=== PATIENT | female | born 1940 | race Asian ===

== ENCOUNTER 2020-08-10 19:00 | Emergency (ER) | payer MEDICARE, OTHER ==
--- NOTE | 2020-08-10 19:54 | EDM.PDOC ---
ED HPI GENERAL MEDICAL PROBLEM - General Chief Complaint: General Stated Complaint: FALL, SHOULDER PAIN Time Seen by Provider: 08/10/20 19:35 Source of Information: Reports: Patient, Family, Other (daughter POPlacido) - History of Present Illness INITIAL COMMENTS - FREE TEXT/NARRATIVE: Rise to emergency room with daughter for a fall which occurred 1 hour prior to arrival. Patient was in the kitchen lost her balance and fell directly on her left shoulder first and then hit her left side of the head. No loss conscious, family were there in the nearby room. Patient was able to get up after however she has moderate severe left shoulder pain. Patient does suffer from advanced rheumatoid arthritis as well. Patient has been acting appropriately since. Her main reason she is here to have her shoulder evaluated. Patient does have history of fall approximately 1 month ago in which she fell back onto her butt as she was getting up and felt her legs give out due to weakness and RA and landed right directly on her back. No evaluation was completed. Patient does also have some lower lumbar spine tenderness and pain. She does have history of lumbar fracture and a "slipped disc", from which the daughter states. Patient does not take any anticoagulants. She rates her side of her head 2 out of 10 and her shoulder 8 out of 10. In addition the patient does have some upper respiratory infection symptoms for the past week , congestion runny nose. Denies loss taste or smell. No worsening shortness of breath or any increase of her oxygen demands. Family at home, her grandsons had fevers last week which have resolved. No one was tested for COVID-19. She has not been out of the house since December however family do come and go and daughter works in school system as long as the children do go to school. Left Shoulder Pain Score (Numeric/FACES): 8 - Related Data Allergies Allergy/AdvReac Type Severity Reaction Status Date / Time abatacept [From Orencia] Allergy Itching Verified 08/10/20 19:34 aspirin Allergy Hives Verified 08/10/20 19:34 infliximab [From Remicade] Allergy Hypertensio Verified 08/10/20 19:34 n lactose Allergy Nausea and Verified 08/10/20 19:34 Vomiting lisinopril Allergy Shortness Verified 08/10/20 19:34 of Breath Home Meds: Home Meds Omeprazole 20 mg PO 1800 01/03/14 [History] Benzonatate [Tessalon Perle] 200 mg PO 0830,1200,1800 PRN 12/19/16 [History] DULoxetine [Cymbalta] 60 mg PO 209912/19/16 [History] Hydroxychloroquine [Plaquenil] 200 mg PO 209912/19/16 [History] Omeprazole 40 mg PO 0812/19/16 [History] busPIRone [Buspar] 5 mg PO 0830,179912/19/16 [History] predniSONE 5 - 10 mg PO 119912/19/16 [History] Acetaminophen [Acetaminophen ER] 650 mg PO TID PRN 10/31/17 [History] Cholecalciferol (Vitamin D3) [Vitamin D3] 2,000 unit PO 119910/31/17 [History] azaTHIOprine [Imuran] 50 mg PO 0830,179901/23/18 [History] Albuterol Sulfate 1 ampule NEB BID PRN 03/20/18 [History] Fexofenadine [Krystal] 180 [place] 82903/20/18 [History] Magnesium Oxide [Magnesium] 500 mg PO 119903/20/18 [History] Codeine/guaiFENesin [Robitussin AC] 5 ml PO ASDIRECTED PRN 05/14/18 [History] Formoterol Fumarate [Perforomist] 1 each NEB 0800,199905/14/18 [History] Budesonide [Pulmicort] 0.5 mg INH 0830,202905/15/18 [History] Cyanocobalamin (Vitamin B-12) [Vitamin B-12] 1,000 mcg PO DAILY@119905/15/18 [History] Gabapentin [Neurontin] 800 mg PO TID@1200,1800,209905/15/18 [History] Hydrocodone/Acetaminophen [Hydrocodone-Acetamin 5-325 mg] 1 tab PO BID PRN 05/15/18 [History] metFORMIN HCl [Metformin ER Osmotic] 500 mg PO 0830,1200,1800 05/15/18 [History] tiZANidine [Zanaflex] 2 mg PO 209905/15/18 [History] Triamcinolone Acetonide [Triamcinolone Acetonide 0.1% Crm] 1 applic TOP BID PRN 09/05/18 [History] Fenofibrate 54 mg PO 209912/04/18 [History] Insulin Glarg,Human.Rec.Analog [Lantus] 10 unit SUBCUT 209912/04/18 [History] Tocilizumab [Actemra] 250 mg IV Q28D 01/01/19 [History] Nystatin 500,000 unit PO QID 7 Days #140 oral.susp 08/10/20 [Rx] Past Medical History HEENT History: Reports: None, Cataract, Hard of Hearing, Impaired Vision Cardiovascular History: Reports: High Cholesterol, Hypertension Respiratory History: Reports: Asthma Other Respiratory History: idiopathic pulmonary fibrosis - uncomplicated severe persistant asthma Gastrointestinal History: Reports: GERD, Hiatal Hernia Other Gastrointestinal History: peptic ulcers 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: Musculoskeletal History: Reports: Osteoarthritis, Osteoporosis, RA Psychiatric History: Reports: Depression Endocrine/Metabolic History: Reports: Diabetes, Type II, Vitamin D Deficiency Hematologic History: Reports: Anemia, B12 Deficiency Immunologic History: Reports: Immunosuppression, Other (See Below) Other Immunologic History: 05-29-18 First dose of Orencia; d/c'd Cimzia therapy Dermatologic History: Reports: Other (See Below) Other Dermatologic History: Vasculitis - Past Surgical History Other HEENT Surgeries/Procedures: ear surgery Cardiovascular Surgical History: Reports: None Respiratory Surgical History: Reports: None GI Surgical History: Reports: Cholecystectomy, Hernia, Inguinal Musculoskeletal Surgical History: Reports: None Dermatological Surgical History: Reports: Skin Biopsy Social & Family History - Family History Family Medical History: Noncontributory - Caffeine Use Caffeine Use: Reports: Coffee ED ROS GENERAL - Review of Systems Review Of Systems: Comprehensive ROS is negative, except as noted in HPI. Constitutional: Reports: Weakness. Denies: Fever, Chills Respiratory: Reports: Cough (Patient has chronic cough due to her pulmonary fibrosis), Other (Denies increasing shortness of breath from baseline) Cardiovascular: Denies: Chest Pain Musculoskeletal: Reports: Shoulder Pain (left ), Back Pain Neurological: Reports: No Symptoms. Denies: Confusion, Headache, Numbness, Paresthesia, Syncope ED EXAM, GENERAL - Physical Exam Exam: See Below Exam Limited By: Language Barrier (mild language barrier, daughter (POA) at bedside as well.) General Appearance: Alert, WD/WN, No Apparent Distress Eye Exam: Bilateral Eye: EOMI, PERRL Ears: Normal External Exam, Normal TMs, Other Nose: Normal Inspection, Normal Mucosa, No Blood Throat/Mouth: Normal Lips, Other (White plaque noted to the oropharynx consistent with oral Jennifer) Head: Atraumatic, Normocephalic, Other (Negative for lazo sign, negative raccoon eyes). No: Facial Swelling, Facial Tenderness Neck: Normal Inspection, Supple, Non-Tender, Full Range of Motion. No: Tender Lateral, Tender Midline Respiratory/Chest: Crackles, Rhonchi Cardiovascular: Normal Peripheral Pulses, Regular Rate, Rhythm GI/Abdominal: Soft, Non-Tender Back Exam: Normal Inspection, Vertebral Tenderness, Other (No signs of bruising, no crepitus or bony step-offs. moderater L4-L5 tenderness on palpation). No: Muscle Spasm Extremities: Normal Inspection, Normal Capillary Refill, Other (Left shoulder pain worse when she externally rotates and abducts it. 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 No: Leg Pain Neurological: Alert, Oriented, CN II-XII Intact, Normal Cognition, No Motor/Sensory Deficits Psychiatric: Normal Affect, Normal Mood Skin Exam: Warm, Dry, Intact. No: Ecchymosis, Wound/Incision Course - Vital Signs Last Recorded V/S: Last Vital Signs Temp 96.7 F L 08/10/20 20:15 Pulse 108 H 08/10/20 20:15 Resp 23 H 08/10/20 20:15 BP 147/91 H 08/10/20 20:15 Pulse Ox 100 08/10/20 20:15 - Orders/Labs/Meds Meds: Medications Discontinued Medications Generic Name Dose Route Start Last Admin Trade Name Rainer PRN Reason Stop Dose Admin Hydrocodone Bitart/Acetaminophen 1 tab 08/10/20 20:29 08/10/20 20:30 Maunie 325-5 Mg PO 08/10/20 20:30 Not Given ONETIME ONE Hydrocodone Bitart/Acetaminophen 1 tab 08/10/20 20:29 08/10/20 20:31 Maunie 325-5 Mg PO 08/10/20 20:30 1 tab ONETIME ONE Administration Hydrocodone Bitart/Acetaminophen Confirm 08/10/20 20:27 08/10/20 20:30 Maunie 325-5 Mg Administered 08/10/20 20:28 Not Given Dose 1 tab .ROUTE .STK-MED ONE - Re-Assessments/Exams Free Text/Narrative Re-Assessment/Exam: 08/10/20 19:54 X-ray shoulder lumbar completed. Pain control discussed ice the shoulder. Follow-up with PCP later this week for recheck. Patient not a candidate at this time for a simple arm sling ,would increased risk for fall along with causing increased risk for adhesive capsulitis. She does have history of underlying L4 compression fracture , which actually does show that and she is also had a recent CT scan back in March 2020. There is degenerative changes noted as we expect with the underlying health conditions. Discussed physical therapy as well, in which a follow-up with her PCP in the clinic may discuss options for this to occur. Patient does have pain medication at home which is scheduled taking hydrocodone and plain Tylenol throughout the day to control her chronic pain. Patient does live at home with her daughter. Discharge return precaution discussed with daughter. Yes the patient did hit her head after she fell landed on her shoulder first. She does have 2 out of 10 pain there is no signs of trauma. No loss conscious no anticoagulants. She alert orientated x3 cranial nerves intact no focal neurological deficits. there is also chance for delayed intracranial hemorrhage, patient does live at home with her daughter at close observation , if symptoms change at all, worsen any, or develops any decline neurologically, patient will be brought back to emergency room immediately for repeat evaluation and CT scan of the head. Daughter and patient both comfortable with plan of care. 08/10/20 19:59 Full personal protective equipment was used throughout visit. Patient does have history immunosuppression potential COVID-19 symptoms. patient was tested for COVID-19 via state test. We will contact the patient with results. She will continue quarantine until results return. 08/10/20 20:09 In addition the patient has some white plaque to the oropharynx, signs of early oral candidiasis, she does do nebs BID, we will treat her with nystatin susp swish gargle and swallow, after nebs, she swishes and spits with water, then she will do the nystatin susp. Departure - Departure Time of Disposition: 20:36 Disposition: Home, Self-Care 01 Condition: Good Clinical Impression: Suspected COVID-19 virus infection Fall Qualifiers: Encounter type: initial encounter Qualified Code(s): W19.XXXA - Unspecified fall, initial encounter Contusion of shoulder, left Qualifiers: Encounter type: initial encounter Qualified Code(s): S40.012A - Contusion of left shoulder, initial encounter Lumbar compression fracture Qualifiers: Encounter type: subsequent encounter Lumbar vertebra fracture level: L4 Fracture healing: with delayed healing Qualified Code(s): S32.040G - Wedge compression fracture of fourth lumbar vertebra, subsequent encounter for fracture with delayed healing - Discharge Information *PRESCRIPTION DRUG MONITORING PROGRAM REVIEWED*: No *COPY OF PRESCRIPTION DRUG MONITORING REPORT IN PATIENT LETTY: No Prescriptions: Nystatin 500,000 unit PO QID 7 Days #140 oral.susp Instructions: Acute Back Pain, Adult, Infection Prevention in the Home Referrals: Juany Roman MD [Primary Care Provider] - Forms: ED Department Discharge Sepsis Event Note (ED) - Evaluation Sepsis Screening Result: No Definite Risk - Focused Exam Vital Signs: Vital Signs Temp Pulse Resp BP Pulse Ox 08/10/20 20:15 96.7 F L 108 H 23 H 147/91 H 100 08/10/20 19:14 96.9 F 116 H 18 141/82 H 96
[2020-08-10 20:16] VITALS: BP 147/91; PULSE 108
[2020-08-10] MEDS ORDERED: Acetaminophen/HYDROcodone 325-5 MG Tab ONE (20:27)
[2020-08-10] MEDS ORDERED: Acetaminophen/HYDROcodone 325-5 MG Tab PO ONE ×2 (20:29)
--- NOTE | 2020-08-10 20:35 | CR ---
[id number] RAD/RAD Shoulder Left 2V Min EXAM: 3 VIEWS LEFT SHOULDER. INDICATION: FALL, LEFT SHOULDER INJURY/PAIN COMPARISON: None. DISCUSSION: No fracture, dislocation or other acute osseous abnormality. Mild degenerative changes of the left common clavicular joint as well as the left glenohumeral joint. Patchy opacifications overlying the visualized left lung. IMPRESSION: 1. No acute osseous abnormalities. Waqas Romero DO 08/10/202032 Thank you for allowing us to participate in the care of your patient.
--- NOTE | 2020-08-10 20:36 | CR ---
[id number] RAD/RAD Lumbar Spine 2-3V EXAM: AP AND LATERAL LUMBAR SPINE. INDICATION: Fall, low back pain. COMPARISON: No previous similar exam is available for comparison. FINDINGS: Age-indeterminate compression deformities of L4-L5. There is approximately 80-90% loss of body height at L4 and 20% loss of body height at L5. No significant retropulsion. Grade 1 anterolisthesis of L5 over S1. Multilevel degenerative changes of the lumbar spine including loss of disc space height, endplate osteophytosis and facet arthropathy. The pedicles are intact. Vascular calcifications. IMPRESSION: AGE-INDETERMINATE COMPRESSION DEFORMITIES OF L4 AND L5 DESCRIBED ABOVE. Waqas Romero DO 08/10/208 Thank you for allowing us to participate in the care of your patient.
== END 2020-08-10 21:00 | disposition home or self-care (01) ==
LOC: KA.ED 19:00
DX: S32.049G Unspecified fracture of fourth lumbar vertebra, subsequent encounter for fracture with delayed healing (principal); S40.012A Contusion of left shoulder, initial encounter; E78.00 Pure hypercholesterolemia, unspecified; I10 Essential (primary) hypertension; J45.909 Unspecified asthma, uncomplicated; K21.9 Gastro-esophageal reflux disease without esophagitis; F32.9 Major depressive disorder, single episode, unspecified; E11.9 Type 2 diabetes mellitus without complications; Z88.8 Allergy status to other drugs, medicaments and biological substances; Z88.6 Allergy status to analgesic agent; Z91.011 Allergy to milk products; Z79.899 Other long term (current) drug therapy; Z79.4 Long term (current) use of insulin; Z20.828 Contact with and (suspected) exposure to other viral communicable diseases; W01.0XXA Fall on same level from slipping, tripping and stumbling without subsequent striking against object, initial encounter
CPT/HCPCS: 72100; 73030-LT; 99283-25; 99284; A9270-GY; U0002

== ENCOUNTER 2021-01-02 08:08 | Inpatient (IN) | payer MEDICARE, OTHER ==
--- NOTE | 2021-01-02 08:12 | EDM.PDOC ---
ED HPI GENERAL MEDICAL PROBLEM - General Chief Complaint: Neuro Symptoms/Deficits Stated Complaint: FALL Time Seen by Provider: 01/02/21 08:12 Source of Information: Reports: Patient, Family History Limitations: Reports: Altered Mental Status - History of Present Illness INITIAL COMMENTS - FREE TEXT/NARRATIVE: Mrs. Walker, 80-year-old female, presents by family members to the emergency department this morning for evaluation of increased weakness and confusion. Roughly 2330 hrs. yesterday, daughter January, heard a thump, secondary of Paek falling to the floor. There was no obvious injury and she was assisted back into bed. It was noted that yesterday she had been slightly worsened in her chronic confusion/weakness issues with more frequent headaches occurring lately. This morning, when typically getting her up for the day she was noted to be experiencing generalized weakness to all extremities as well as slightly worsened confusion from her baseline. It was also noted that during the night her oxygen had come off with desaturation occurring but returned back to her baseline once nasal cannula was replaced. It is noted she has chronic oxygen supplementation for pulmonary fibrosis and is also been on suppression therapy with Bactrim 3 times a week for the past year. There was no noted loss of consciousness nor injury. There is been no fever nor chills noted. Cough and mucus production has been stable. No abdominal nor urine issues. Chronic back pain does not seem to have worsened from her compression fracture diagnosis recently. Generalized weakness and disorientation/confusion slightly worsened. Onset Date: 01/01/21 Duration: Hour(s):, Getting Worse Location: Reports: Generalized Severity: Severe Improves with: Reports: None Treatments BEHAVIORAL HEALTH ASSOCIATE: Reports: Other (see below) (Home medications, treatments, and chronic oxygen supplementation) - Related Data Allergies Allergy/AdvReac Type Severity Reaction Status Date / Time abatacept [From Orencia] Allergy Itching Verified 01/02/21 08:36 aspirin Allergy Hives Verified 01/02/21 08:36 infliximab [From Remicade] Allergy Hypertensio Verified 01/02/21 08:36 n lactose Allergy Nausea and Verified 01/02/21 08:36 Vomiting lisinopril Allergy Shortness Verified 01/02/21 08:36 of Breath Home Meds: Home Meds Omeprazole 20 mg PO 1800 01/03/14 [History] Benzonatate [Tessalon Perle] 200 mg PO 0830,1200,1800 PRN 12/19/16 [History] DULoxetine [Cymbalta] 60 mg PO 209912/19/16 [History] Hydroxychloroquine [Plaquenil] 200 mg PO 209912/19/16 [History] busPIRone [Buspar] 5 mg PO 0830,179912/19/16 [History] predniSONE 5 - 10 mg PO 119912/19/16 [History] Acetaminophen [Acetaminophen ER] 650 mg PO TID PRN 10/31/17 [History] Cholecalciferol (Vitamin D3) [Vitamin D3] 2,000 unit PO 119910/31/17 [History] azaTHIOprine [Imuran] 50 mg PO 0830,179901/23/18 [History] Albuterol Sulfate 1 ampule NEB BID PRN 03/20/18 [History] Magnesium Oxide [Magnesium] 500 mg PO 119903/20/18 [History] Codeine/guaiFENesin [Robitussin AC] 5 ml PO ASDIRECTED PRN 05/14/18 [History] Budesonide [Pulmicort] 0.5 mg INH 829,202905/15/18 [History] Cyanocobalamin (Vitamin B-12) [Vitamin B-12] 1,000 mcg PO DAILY@119905/15/18 [History] metFORMIN HCl [Metformin ER Osmotic] 500 mg PO 0830,1200,179905/15/18 [History] Triamcinolone Acetonide [Triamcinolone Acetonide 0.1% Crm] 1 applic TOP BID PRN 09/05/18 [History] Cetirizine [ZyrTEC] 10 mg PO DAILY 01/02/21 [History] Cranberry Fruit [Cranberry] 900 mg PO 209901/02/21 [History] Fenofibrate Nanocrystallized [Fenofibrate] 145 mg PO 209901/02/21 [History] Gabapentin [Neurontin] 900 mg PO 1300,1700,209901/02/21 [History] Hydrocodone/Acetaminophen [Hydrocodone-Acetamin 10-325 mg] 1 tab PO Q4H PRN 01/02/21 [History] Insulin Detemir [Levemir Flextouch] 18 units SUBCUT 199901/02/21 [History] Sulfamethoxazole/Trimethoprim [Bactrim Ds Tablet] 1 tab PO ASDIRECTED 01/02/21 [History] Past Medical History HEENT History: Reports: None, Cataract, Hard of Hearing, Impaired Vision Cardiovascular History: Reports: High Cholesterol, Hypertension Respiratory History: Reports: Asthma Other Respiratory History: 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 Denies: CVA Psychiatric History: Reports: Depression Endocrine/Metabolic History: Reports: Diabetes, Type II, Vitamin D Deficiency Hematologic History: Reports: Anemia, B12 Deficiency Immunologic History: Reports: Immunosuppression, Other (See Below) Other Immunologic History: 05-29-18 First dose of Orencia; d/c'd Cimzia therapy Dermatologic History: Reports: Other (See Below) Other Dermatologic History: Vasculitis - Past Surgical History Other HEENT Surgeries/Procedures: ear surgery Cardiovascular Surgical History: Reports: None Respiratory Surgical History: Reports: None GI Surgical History: Reports: Cholecystectomy, Hernia, Inguinal Musculoskeletal Surgical History: Reports: None Dermatological Surgical History: Reports: Skin Biopsy - Past Imaging History Past Imaging History: Reports: Bone Scan, CAT Scan, MRI, Xray Social & Family History - Family History Family Medical History: No Pertinent Family History - Tobacco Use Tobacco Use Status *Q: Never Tobacco User - Caffeine Use Caffeine Use: Reports: Coffee Other Caffeine Use: 1 cup a day ED ROS GENERAL - Review of Systems Review Of Systems: Comprehensive ROS is negative, except as noted in HPI. ED EXAM, GENERAL - Physical Exam Exam: See Below Free Text/Narrative:: Alert, oriented to location and who the president is but is not aware of date. She speaks of mild generalized pain exhibiting no gross shortness of breath while on her oxygen. Pupils are mildly constricted but reactive with no icterus no injection noted. There is no facial asymmetry noted but she is slow to follow command. Neck is soft supple with no nuchal rigidity nor tenderness. I do not appreciate any carotid bruit to auscultation. Thorax is clear on inhalation with fine rhonchi, coarse exhalation with a very shortened inspiratory expiratory cycle. Cardiac is tachycardic I do not appreciate murmur. Abdomen is soft I do not appreciate any tenderness nor megaly. No edema to the extremities. Neuro exam somewhat limited secondary of historical factors and following commands. Dry appearing mucous membranes, Facial symmetry is noted with non- cooperative to opening of mouth for assessment of tongue and facial expression. When asked to raise her arm and point to her daughter she slowly brings the forearm up but rests at the elbow but does understand and points with index finger at her daughter. Left side is may be slightly less strength to the arm raise. Lever Miller strength is +1 but symmetrical. She is unable to hold her legs with gradual dropping to the table after 3 seconds. She is able to point her toes and dorsiflex symmetrically but slightly weakened. #1 Interpretation EKG Date: 01/02/21 Time: 08:36 Rhythm: NSR Rate (Beats/Min): 141 [employer]: Normal P-Wave: Present QRS: Normal ST-T: Depressed QT: Normal Comparison: Change From Previous EKG Course - Vital Signs Last Recorded V/S: Last Vital Signs Temp 98 F 01/02/21 08:45 Pulse 138 H 01/02/21 09:27 Resp 33 H 01/02/21 08:45 BP 105/89 01/02/21 09:27 Pulse Ox 99 01/02/21 08:45 - Orders/Labs/Meds Orders: Active Orders 24 hr Category Date Time Status Patient Status [ADT] Routine ADT 01/02/21 10:28 Ordered Peripheral IV Care [RC] . DIRECTED Care 01/02/21 08:23 Active CULTURE BLOOD [BC] Stat Lab 01/02/21 08:23 Ordered CULTURE BLOOD [BC] Stat Lab 01/02/21 08:23 Ordered Sodium Chloride 0.9% [Normal Saline] 1,000 ml Med 01/02/21 08:30 Active IV ASDIRECTED Sodium Chloride 0.9% [Saline Flush] Med 01/02/21 08:23 Active 10 ml FLUSH Q8HR PRN Blood Culture x2 Reflex Set [OM.PC] Stat Oth 01/02/21 08:23 Ordered Peripheral IV Insertion Adult [OM.PC] Routine Oth 01/02/21 08:23 Ordered Code Status [Resuscitation Status] Stat Resus Stat 01/02/21 10:30 Ordered EKG 12 Lead [EK] Urgent Ther 01/02/21 08:24 Ordered Medication Orders Sodium Chloride (Normal Saline) 1,000 mls @ 125 mls/hr IV ASDIRECTED TERESE Last Admin: 01/02/21 09:25 Dose: 125 mls/hr Documented by: GINA Sodium Chloride (Sodium Chloride 0.9% 10 Ml Syringe) 10 ml FLUSH Q8HR PRN PRN Reason: keep vein open Labs: Laboratory Tests 01/02/21 01/02/21 01/02/21 Range/Units 08:15 08:15 08:15 WBC Cancelled Corrected WBC Cancelled RBC Cancelled Hgb Cancelled Hct Cancelled MCV Cancelled MCH Cancelled MCHC Cancelled RDW Cancelled Plt Count Cancelled MPV Cancelled Immature Gran % (Auto) Cancelled Neut % (Auto) Cancelled Lymph % (Auto) Cancelled [place] % (Auto) Cancelled Eos % (Auto) Cancelled Baso % (Auto) Cancelled Neut # (Auto) Cancelled Lymph # (Auto) Cancelled [place] # (Auto) Cancelled Eos # (Auto) Cancelled Baso # (Auto) Cancelled Immature Gran # (Auto) Cancelled Add Manual Diff Cancelled Neutrophils % (Manual) Cancelled Band Neutrophils % Cancelled Lymphocytes % (Manual) Cancelled Atypical Lymphs % Cancelled Immat Monocytes % (Man) Cancelled Monocytes % (Manual) Cancelled Eosinophils % (Manual) Cancelled Basophils % (Manual) Cancelled Metamyelocytes % Cancelled Myelocytes % Cancelled Promyelocytes % Cancelled Blast Cells % Cancelled Plasma Cell % (Manual) Cancelled Immature Gran # Cancelled Absolute Neutrophils Cancelled Absolute Seg Neuts Cancelled Band Neutrophils # Cancelled Lymphocytes # (Manual) Cancelled Monocytes # (Manual) Cancelled Eosinophils # (Manual) Cancelled Basophils # (Manual) Cancelled Absolute Metamyelocyte Cancelled Absolute Myelocytes Cancelled Absolute Promyelocytes Cancelled Absolute Plasma Cells Cancelled Nucleated RBCs Cancelled Differential Comment Cancelled Pathologist Review Cancelled Bilobed Neuts Cancelled Hypersegmented Neuts Cancelled Variant Lymphocytes Cancelled Atypical Lymphocytes Cancelled Abnormal Lymphocytes Cancelled Plasmacytoid Lymphs Cancelled Reactive Lymphocytes Cancelled Vacuolated Monocytes Cancelled Absolute Blast Cells Cancelled Smudge Cells Cancelled Toxic Granulation Cancelled Dohle Bodies Cancelled Pelger-Huet Cells Cancelled Megakaryocytic Frags Cancelled Remy Rods Cancelled WBC Morphology Comment Cancelled Platelet Estimate Cancelled Hypogranular Platelets Cancelled Platelet Agranulation Cancelled Clumped Platelets Cancelled Giant Platelets Cancelled Platelet Satelliting Cancelled Bizarre Platelets Cancelled Plt Morphology Comment Cancelled Polychromasia Cancelled Hypochromasia Cancelled Poikilocytosis Cancelled Basophilic Stippling Cancelled Anisocytosis Cancelled Microcytosis Cancelled Macrocytosis Cancelled Spherocytes Cancelled Micro Spherocytes Cancelled Pappenheimer Bodies Cancelled Siderocytes Cancelled Sickle Cells Cancelled Target Cells Cancelled Tear Drop Cells Cancelled Ovalocytes Cancelled Stomatocytes Cancelled Helmet Cells Cancelled [place] Bodies Cancelled [place] Rings Cancelled Amber Cells Cancelled Elliptocytes Cancelled Acanthocytes (Spur) Cancelled Rouleaux Cancelled Hemoglobin C Crystals Cancelled Schistocytes Cancelled RBC Morph Comment Cancelled Smear Path Review Cancelled Billy Bodies Cancelled Sodium 139 (136-145) mmol/L Potassium 4.3 (3.5-5.1) mmol/L Chloride 96 L (98-107) mmol/L Carbon Dioxide 32.2 H (21.0-32.0) mmol/L Anion Gap 15.1 H (5-15) mmol/L BUN 15 (7-18) mg/dL Creatinine 0.43 L (0.51-1.17) mg/dL Est Cr Clr Drug Dosing 87.76 mL/min Estimated GFR (MDRD) > 60 mL/min Glucose 197 H (70-140) mg/dL Lactic Acid 2.4 H (0.4-2.0) mmol/L Calcium 9.5 (8.7-10.3) mg/dL Total Bilirubin 1.0 (0.2-1.0) mg/dL AST 19 (15-37) U/L ALT 16 (14-63) U/L Alkaline Phosphatase 55 (46-116) U/L Creatine Kinase 26 (26-276) U/L CK-MB (CK-2) < 0.50 (0.00-3.60) ng/mL Troponin I < 0.017 (0.000-0.056) ng/mL Total Protein 8.3 H (6.4-8.2) g/dL Albumin 3.09 L (3.40-5.00) g/dL Specimen Type Urine Color (YELLOW) Urine Appearance (CLEAR) Urine pH (5.0-9.0) Ur Specific [place] (1.005-1.030) Urine Protein (NEGATIVE) mg/dL Urine Glucose (UA) (NEGATIVE) mg/dL Urine Ketones (NEGATIVE) mg/dL Urine Occult Blood (NEGATIVE) Urine Nitrite (NEGATIVE) Urine Bilirubin (NEGATIVE) Urine Urobilinogen (0.2-1.0) E.U./dL Ur Leukocyte Esterase (NEGATIVE) U Hyaline Cast (Auto) Urine RBC (0-5) /HPF Urine WBC (0-5) /HPF Ur Epithelial Cells /LPF Urine Bacteria (NONE TO FEW) /HPF Urine Mucus (NEGATIVE) /LPF SARS CoV-2 RNA Rapid LINA (NEGATIVE) Bld Parasites Quantity Cancelled Slides for Path Review Cancelled 01/02/21 01/02/21 01/02/21 Range/Units 08:15 09:15 09:41 WBC 7.43 Corrected WBC RBC 3.68 L Hgb 11.5 L Hct 37.9 MCV 103.0 H D MCH 31.3 H MCHC 30.3 L RDW 15.3 H Plt Count 369 MPV 8.4 Immature Gran % (Auto) 0.5 Neut % (Auto) 86.2 H Lymph % (Auto) 9.3 L [place] % (Auto) 3.8 Eos % (Auto) 0.1 L Baso % (Auto) 0.1 Neut # (Auto) 6.40 Lymph # (Auto) 0.69 L [place] # (Auto) 0.28 Eos # (Auto) 0.01 L Baso # (Auto) 0.01 Immature Gran # (Auto) 0.04 Add Manual Diff Neutrophils % (Manual) Band Neutrophils % Lymphocytes % (Manual) Atypical Lymphs % Immat Monocytes % (Man) Monocytes % (Manual) Eosinophils % (Manual) Basophils % (Manual) Metamyelocytes % Myelocytes % Promyelocytes % Blast Cells % Plasma Cell % (Manual) Immature Gran # Absolute Neutrophils Absolute Seg Neuts Band Neutrophils # Lymphocytes # (Manual) Monocytes # (Manual) Eosinophils # (Manual) Basophils # (Manual) Absolute Metamyelocyte Absolute Myelocytes Absolute Promyelocytes Absolute Plasma Cells Nucleated RBCs Differential Comment Pathologist Review Bilobed Neuts Hypersegmented Neuts Variant Lymphocytes Atypical Lymphocytes Abnormal Lymphocytes Plasmacytoid Lymphs Reactive Lymphocytes Vacuolated Monocytes Absolute Blast Cells Smudge Cells Toxic Granulation Dohle Bodies Pelger-Huet Cells Megakaryocytic Frags Remy Rods WBC Morphology Comment Platelet Estimate Hypogranular Platelets Platelet Agranulation Clumped Platelets Giant Platelets Platelet Satelliting Bizarre Platelets Plt Morphology Comment Polychromasia Hypochromasia Poikilocytosis Basophilic Stippling Anisocytosis Microcytosis Macrocytosis Spherocytes Micro Spherocytes Pappenheimer Bodies Siderocytes Sickle Cells Target Cells Tear Drop Cells Ovalocytes Stomatocytes Helmet Cells [place] Bodies [place] Rings Amber Cells Elliptocytes Acanthocytes (Spur) Rouleaux Hemoglobin C Crystals Schistocytes RBC Morph Comment Smear Path Review Billy Bodies Sodium (136-145) mmol/L Potassium (3.5-5.1) mmol/L Chloride (98-107) mmol/L Carbon Dioxide (21.0-32.0) mmol/L Anion Gap (5-15) mmol/L BUN (7-18) mg/dL Creatinine (0.51-1.17) mg/dL Est Cr Clr Drug Dosing mL/min Estimated GFR (MDRD) mL/min Glucose (70-140) mg/dL Lactic Acid (0.4-2.0) mmol/L Calcium (8.7-10.3) mg/dL Total Bilirubin (0.2-1.0) mg/dL AST (15-37) U/L ALT (14-63) U/L Alkaline Phosphatase (46-116) U/L Creatine Kinase (26-276) U/L CK-MB (CK-2) (0.00-3.60) ng/mL Troponin I (0.000-0.056) ng/mL Total Protein (6.4-8.2) g/dL Albumin (3.40-5.00) g/dL Specimen Type Urincath Urine Color Yellow (YELLOW) Urine Appearance Clear (CLEAR) Urine pH 6.5 (5.0-9.0) Ur Specific [place] 1.025 (1.005-1.030) Urine Protein Trace H (NEGATIVE) mg/dL Urine Glucose (UA) >=1000 H (NEGATIVE) mg/dL Urine Ketones 40 H (NEGATIVE) mg/dL Urine Occult Blood Negative (NEGATIVE) Urine Nitrite Negative (NEGATIVE) Urine Bilirubin Small H (NEGATIVE) Urine Urobilinogen 1.0 (0.2-1.0) E.U./dL Ur Leukocyte Esterase Negative (NEGATIVE) U Hyaline Cast (Auto) Occasional Urine RBC 0-5 (0-5) /HPF Urine WBC 5-10 H (0-5) /HPF Ur Epithelial Cells Few /LPF Urine Bacteria Few (NONE TO FEW) /HPF Urine Mucus Occasional H (NEGATIVE) /LPF SARS CoV-2 RNA Rapid LINA Negative (NEGATIVE) Bld Parasites Quantity Slides for Path Review Meds: Medications Generic Name Dose Route Start Last Admin Trade Name Freq PRN Reason Stop Dose Admin Sodium Chloride 1,000 mls @ 125 mls/hr 01/02/21 08:30 01/02/21 09:25 Normal Saline IV 125 mls/hr ASDIRECTED TERESE Administration Sodium Chloride 10 ml 01/02/21 08:23 Sodium Chloride 0.9% 10 Ml Syringe FLUSH Q8HR PRN keep vein open Discontinued Medications Generic Name Dose Route Start Last Admin Trade Name Freq PRN Reason Stop Dose Admin Metoprolol Tartrate 2.5 mg 01/02/21 09:23 01/02/21 09:27 Metoprolol Tartrate 5 Mg/5 Ml Sdv IVPUSH 01/02/21 09:24 2.5 mg ONETIME ONE Administration - Radiology Interpretation Free Text/Narrative:: No acute CT findings of the brain. Extensive bilateral infiltrates with chronic appearing fibrosis on [address] Results Date: 01/02/21 CT Results Time: 09:21 - Re-Assessments/Exams Free Text/Narrative Re-Assessment/Exam: 01/02/21 10:32 Discussed status with Mary Holt agreeing to admission for confusion with no focal neurologic change, weakness with recent fall. Free Text/Narrative Re-Assessment/Exam: 01/02/21 10:34 Discussion with daughter Chasity in regards to CODE STATUS. DNR/DNI with limited aggressive measures, focus on comfort cares was discussed. There has been no formal advanced directive or living will completed previously. POLST form is completed and placed in chart Departure - Departure Time of Disposition: 10:05 Disposition: Refer to Observation Condition: Fair Clinical Impression: Confusion with non-focal neuro exam, Tachycardia, Weakness, Diabetes, Ketonuria, Pulmonary fibrosis, Rheumatoid arthritis - Discharge Information Referrals: Juany Roman MD [Primary Care Provider] - Forms: ED Department Discharge Sepsis Event Note (ED) - Focused Exam Vital Signs: Vital Signs Temp Pulse Pulse Resp BP BP Pulse Ox 01/02/21 09:27 138 H 105/89 01/02/21 08:45 98 F 136 H 33 H 156/94 H 99 01/02/21 08:10 98 F 135 H 35 H 165/99 H 95 ED Communication - ED Communication Date/Time Date: 01/02/21 Time Called: 10:05 - Discussed Case With (1) Discussed Case With (1): Admitting Provider Person/s Notified (1): Mary Holt - Problem List & Annotations (1) Confusion with non-focal neuro exam SNOMED Code(s): 08344461, 291261295 Code(s): R41.0 - DISORIENTATION, UNSPECIFIED Status: Acute Priority: High Current Visit: Yes (2) Pulmonary fibrosis SNOMED Code(s): 22277615 Code(s): J84.10 - PULMONARY FIBROSIS, UNSPECIFIED Status: Chronic Prio rity: Medium Current Visit: Yes (3) Rheumatoid arthritis SNOMED Code(s): 50552171 Code(s): M06.9 - RHEUMATOID ARTHRITIS, UNSPECIFIED Status: Chronic Priority: Medium Current Visit: Yes Qualifiers: Rheumatoid arthritis location: unspecified site (4) Fall SNOMED Code(s): 6333745, 356356902 Code(s): W19.XXXA - UNSPECIFIED FALL, INITIAL ENCOUNTER Status: Acute Priority: High Current Visit: No Qualifiers: Encounter type: initial encounter Qualified Code(s): W19.XXXA - Unspecified fall, initial encounter (5) Tachycardia SNOMED Code(s): 0222970 Code(s): R00.0 - TACHYCARDIA, UNSPECIFIED Status: Acute Priority: High Current Visit: Yes (6) Weakness SNOMED Code(s): 32719762 Code(s): R53.1 - WEAKNESS Status: Acute Priority: High Current Visit: Yes (7) Anemia SNOMED Code(s): 962516785 Code(s): D64.9 - ANEMIA, UNSPECIFIED Status: Acute Current Visit: Yes Qualifiers: Anemia type: B12 deficiency Vitamin B12 deficiency anemia type: unspecified B12 deficiency Qualified Code(s): D51.9 - Vitamin B12 deficiency anemia, unspecified (8) Diabetes SNOMED Code(s): 94795160 Code(s): E11.9 - TYPE 2 DIABETES MELLITUS WITHOUT COMPLICATIONS Status: Chronic Priority: Medium Current Visit: Yes Qualifiers: Diabetes mellitus type: type 2 Diabetes mellitus penitentiary insulin use: without ocean transportation intermediary use (9) Ketonuria SNOMED Code(s): 691256902 Code(s): R82.4 - ACETONURIA Status: Chronic Priority: Medium Current Visit: Yes (10) COVID-19 ruled out by laboratory testing SNOMED Code(s): 563316463181745436, 257705180485377459 Code(s): Z20.822 - CONTACT WITH AND (SUSPECTED) EXPOSURE TO COVID-19 Status: Acute Priority: High Current Visit: Yes - Problem List Review Problem List Initiated/Reviewed/Updated: Yes - My Orders Last 24 Hours: My Active Orders 01/02/21 08:23 Peripheral IV Care [RC] . DIRECTED CULTURE BLOOD [BC] Stat CULTURE BLOOD [BC] Stat Sodium Chloride 0.9% [Saline Flush] 10 ml FLUSH Q8HR PRN Blood Culture x2 Reflex Set [OM.PC] Stat Peripheral IV Insertion Adult [OM.PC] Routine 01/02/21 08:24 EKG 12 Lead [EK] Urgent 01/02/21 08:30 Sodium Chloride 0.9% [Normal Saline] 1,000 ml IV ASDIRECTED 01/02/21 10:28 Patient Status [ADT] Routine 01/02/21 10:30 Code Status [Resuscitation Status] Stat - Assessment/Plan Last 24 Hours: My Active Orders 01/02/21 08:23 Peripheral IV Care [RC] . DIRECTED CULTURE BLOOD [BC] Stat CULTURE BLOOD [BC] Stat Sodium Chloride 0.9% [Saline Flush] 10 ml FLUSH Q8HR PRN Blood Culture x2 Reflex Set [OM.PC] Stat Peripheral IV Insertion Adult [OM.PC] Routine 01/02/21 08:24 EKG 12 Lead [EK] Urgent 01/02/21 08:30 Sodium Chloride 0.9% [Normal Saline] 1,000 ml IV ASDIRECTED 01/02/21 10:28 Patient Status [ADT] Routine 01/02/21 10:30 Code Status [Resuscitation Status] Stat
[2021-01-02] MEDS ORDERED: Metoprolol Tartrate 5 MG/5 ML SDV IVPUSH ONE (09:23)
[2021-01-02] MEDS: Sodium Chloride 0.9% 1,000 ML IV SCH ×2 (09:25→17:05)
--- NOTE | 2021-01-02 09:25 | CT ---
[id number] CT/CT Head WO IV EXAM: CT Head WO IV CLINICAL DATA: CHANGE IN MENTAL STATUS COMPARISON: No previous similar exam is available for comparison. FINDINGS: There is no mass or mass effect. There is no hemorrhage or hydrocephalus. There are no extra-axial fluid collections. There are no sites of abnormal attenuation. IMPRESSION: NO PLAIN CT EVIDENCE OF ACUTE INTRACRANIAL PROCESS. Parish Blackman MD 01/02/21 0924 Thank you for allowing us to participate in the care of your patient.
[2021-01-02 09:26] LABS: ANION GAP 15.1 mmol/L (5-15); CHLORIDE,CL 96 mmol/L (98-107); SODIUM,NA 139 mmol/L (136-145)
--- NOTE | 2021-01-02 09:26 | CR ---
[id number] RAD/RAD Chest PA or AP 1V EXAM: SINGLE VIEW CHEST. INDICATION: TACHYCARDIA PULMONARY FIBROSIS COMPARISON: CORRELATION IS MADE WITH MAY 22, 2015 FINDINGS: Extensive bilateral infiltrates are seen Apparently this is related to fibrosis Here clinical correlation is needed The cardiac silhouette is not well seen There is question of bilateral hilar adenopathy IMPRESSION: SIGNIFICANT CHANGE SINCE LAST EXAM Parish Blackman MD 01/02/21 0925 Thank you for allowing us to participate in the care of your patient.
--- NOTE | 2021-01-02 11:19 | PCM.HP.2 ---
H&P History of Present Illness - General Date of Service: 01/02/21 Admit Problem/Dx: Admission Diagnosis/Problem Admission Diagnosis/Problem Confusion and disorientation Source of Information: Patient, Family History Limitations: Reports: No Limitations - History of Present Illness Initial Comments - Free Text/Narative: 80 year old female with known pulmonary fibrosis admitted to observation status from the [facility] ED department after presenting the AM of 01/02/2021 with increased confusion from baseline with noted weakness since one day prior to presentation. Family notes that she has had an increased cough. She did fall one day prior to presentation. It is unknown if there were inciting circumstances. Patient has fallen previously in the past. There were no known injuries from the fall. Family noted that in the morning she had increased confusion, had been incontinent of urine and was markedly weak where she was not helping with self care as usual. They brought her by private care to the hospital for evaluation. - Related Data Allergies/Adverse Reactions: Allergies Allergy/AdvReac Type Severity Reaction Status Date / Time abatacept [From Orencia] Allergy Itching Verified 01/02/21 08:36 aspirin Allergy Hives Verified 01/02/21 08:36 infliximab [From Remicade] Allergy Hypertensio Verified 01/02/21 08:36 n lactose Allergy Nausea and Verified 01/02/21 08:36 Vomiting lisinopril Allergy Shortness Verified 01/02/21 08:36 of Breath Home Medications: Home Meds Omeprazole 20 mg PO DAILY 01/03/14 [History] Benzonatate [Tessalon Perle] 200 mg PO 0830,1200,1800 PRN 12/19/16 [History] DULoxetine [Cymbalta] 60 mg PO 209912/19/16 [History] Hydroxychloroquine [Plaquenil] 200 mg PO 209912/19/16 [History] busPIRone [Buspar] 5 mg PO 0830,1800 12/19/16 [History] predniSONE 10 mg PO 1200 12/19/16 [History] Acetaminophen [Acetaminophen ER] 650 mg PO TID PRN 10/31/17 [History] Cholecalciferol (Vitamin D3) [Vitamin D3] 2,000 unit PO 0800 10/31/17 [History] azaTHIOprine [Imuran] 50 mg PO 0830,1800 01/23/18 [History] Albuterol Sulfate 1 ampule NEB BID 03/20/18 [History] Magnesium Oxide [Magnesium] 500 mg PO 1200 03/20/18 [History] Codeine/guaiFENesin [Robitussin AC] 5 ml PO ASDIRECTED PRN 05/14/18 [History] Budesonide [Pulmicort] 0.5 mg INH 0830,2030 05/15/18 [History] Cyanocobalamin (Vitamin B-12) [Vitamin B-12] 1,000 mcg PO DAILY@1200 05/15/18 [History] metFORMIN HCl [Metformin ER Osmotic] 500 mg PO 0830,1200,1800 05/15/18 [History] Triamcinolone Acetonide [Triamcinolone Acetonide 0.1% Crm] 1 applic TOP BID PRN 09/05/18 [History] Cetirizine [ZyrTEC] 10 mg PO DAILY 01/02/21 [History] Cranberry Fruit [Cranberry] 900 mg PO 209901/02/21 [History] Fenofibrate Nanocrystallized [Fenofibrate] 145 mg PO 209901/02/21 [History] Gabapentin [Neurontin] 900 mg PO 1300,1700,2100 01/02/21 [History] Hydrocodone/Acetaminophen [Hydrocodone-Acetamin 10-325 mg] 1 tab PO Q4H PRN 01/02/21 [History] Insulin Detemir [Levemir Flextouch] 18 units SUBCUT 199901/02/21 [History] Sulfamethoxazole/Trimethoprim [Bactrim Ds Tablet] 1 tab PO ASDIRECTED 01/02/21 [History] Past Medical History HEENT History: Reports: None, Cataract, Hard of Hearing, Impaired Vision Cardiovascular History: Reports: High Cholesterol, Hypertension Respiratory History: Reports: Asthma, Pulmonary Fibrosis Other Respiratory History: 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 on long-term Oxygen use at home via [place] Gastrointestinal History: Reports: GERD, Hiatal Hernia Other Gastrointestinal History: peptic ulcers WOUND CARE PHYSICIAN History: Reports: Musculoskeletal History: Reports: Back Pain, Chronic, Osteoarthritis, Osteoporosis, RA Neurological History: Reports: Headaches, Chronic Psychiatric History: Reports: Depression Endocrine/Metabolic History: Reports: Diabetes, Type II, IDDM, Vitamin D Deficiency Hematologic History: Reports: Anemia, B12 Deficiency Immunologic History: Reports: Immunosuppression, Other (See Below) Other Immunologic History: 05-29-18 First dose of Orencia; d/c'd Cimzia therapy Dermatologic History: Reports: Other (See Below) Other Dermatologic History: Vasculitis - Past Surgical History Other HEENT Surgeries/Procedures: ear surgery Cardiovascular Surgical History: Reports: None Respiratory Surgical History: Reports: None GI Surgical History: Reports: Cholecystectomy, Hernia, Inguinal Endocrine Surgical History: Reports: None Musculoskeletal Surgical History: Reports: None Dermatological Surgical History: Reports: Skin Biopsy - Past Imaging History Past Imaging History: Reports: Bone Scan, CAT Scan, MRI, Xray Social & Family History - Family History Family Medical History: No Pertinent Family History - Tobacco Use Tobacco Use Status *Q: Never Tobacco User Second Hand Smoke Exposure: No - Caffeine Use Caffeine Use: Reports: Coffee Other Caffeine Use: 1 cup a day - Recreational Drug Use Recreational Drug Use: No H&P Review of Systems - Review of Systems: Review Of Systems: See Below Free Text/Narrative: Patient denies pain at this time. Has not other concerns or complaints. She answers appropriately. General: Reports: Chills, Weakness, Fatigue, Diaphoresis, Decreased Appetite. Denies: Fever HEENT: Reports: Headaches. Denies: Dysphasia, Sinus Congestion, Sore Throat, Vertigo Pulmonary: Reports: Shortness of Breath, Cough. Denies: Wheezing Cardiovascular: Reports: Lightheadedness. Denies: Chest Pain, Palpitations, Edema Gastrointestinal: Denies: Abdominal Pain, Bloody Stool, Constipation, Diarrhea, Nausea, Vomiting Genitourinary: Reports: Dysuria. Denies: Frequency, Urgency, Hematuria Musculoskeletal: Denies: Neck Pain, Shoulder Pain, Back Pain Skin: Reports: Dryness. Denies: Jaundice, Bruising, Pruritis, Rash Psychiatric: Reports: Confusion (very mild presently). Denies: Depression, Anxiety Neurological: Reports: Confusion, Headache, Weakness. Denies: Dizziness, Change in Speech Exam - Exam Exam: See Below - Vital Signs Vital Signs: Last Vital Signs Temp 37.8 C 01/02/21 10:42 Pulse 128 H 01/02/21 10:42 Resp 38 H 01/02/21 10:42 BP 159/96 H 01/02/21 10:42 Pulse Ox 96 01/02/21 10:42 Weight: 54.431 kg - Exam Physical Exam Comments:: GENERAL: Frail-appearing adult in no acute distress. Daughter (January) and son () present at bedside. HEENT: Normocephalic, atraumatic. Conjunctiva clear. Nares patent without discharge. Mucous membranes dry, posterior pharynx unremarkable. NECK: Supple, no masses. CV: Tachycardia with regular rhythm, no murmurs, rubs, or gallops. 2+ radial pulses. PULMONARY: Normal effort, Widespread rhonchi with crackles noted in bilateral bases. ABDOMEN: Positive bowel sounds, soft, nontender, nondistended. EXTREMITIES: No edema, cyanosis, or clubbing. MUSCULOSKELETAL: Moves all extremities well. NEUROLOGICAL: No obvious deficits. Alert and oriented x 3 at this time. DERMATOLOGIC: No rashes or suspicious lesions in exposed areas. PSYCHIATRIC: Alert, interactive, appropriate affect. - Patient Data Lab Results Last 24 hrs: Laboratory Results - last 24 hr 01/02/21 01/02/21 01/02/21 Range/Units 08:15 08:15 08:15 WBC Cancelled Corrected WBC Cancelled RBC Cancelled Hgb Cancelled Hct Cancelled MCV Cancelled MCH Cancelled MCHC Cancelled RDW Cancelled Plt Count Cancelled MPV Cancelled Immature Gran % (Auto) Cancelled Neut % (Auto) Cancelled Lymph % (Auto) Cancelled [place] % (Auto) Cancelled Eos % (Auto) Cancelled Baso % (Auto) Cancelled Neut # (Auto) Cancelled Lymph # (Auto) Cancelled [place] # (Auto) Cancelled Eos # (Auto) Cancelled Baso # (Auto) Cancelled Immature Gran # (Auto) Cancelled Add Manual Diff Cancelled Neutrophils % (Manual) Cancelled Band Neutrophils % Cancelled Lymphocytes % (Manual) Cancelled Atypical Lymphs % Cancelled Immat Monocytes % (Man) Cancelled Monocytes % (Manual) Cancelled Eosinophils % (Manual) Cancelled Basophils % (Manual) Cancelled Metamyelocytes % Cancelled Myelocytes % Cancelled Promyelocytes % Cancelled Blast Cells % Cancelled Plasma Cell % (Manual) Cancelled Immature Gran # Cancelled Absolute Neutrophils Cancelled Absolute Seg Neuts Cancelled Band Neutrophils # Cancelled Lymphocytes # (Manual) Cancelled Monocytes # (Manual) Cancelled Eosinophils # (Manual) Cancelled Basophils # (Manual) Cancelled Absolute Metamyelocyte Cancelled Absolute Myelocytes Cancelled Absolute Promyelocytes Cancelled Absolute Plasma Cells Cancelled Nucleated RBCs Cancelled Differential Comment Cancelled Pathologist Review Cancelled Bilobed Neuts Cancelled Hypersegmented Neuts Cancelled Variant Lymphocytes Cancelled Atypical Lymphocytes Cancelled Abnormal Lymphocytes Cancelled Plasmacytoid Lymphs Cancelled Reactive Lymphocytes Cancelled Vacuolated Monocytes Cancelled Absolute Blast Cells Cancelled Smudge Cells Cancelled Toxic Granulation Cancelled Dohle Bodies Cancelled Pelger-Huet Cells Cancelled Megakaryocytic Frags Cancelled Remy Rods Cancelled WBC Morphology Comment Cancelled Platelet Estimate Cancelled Hypogranular Platelets Cancelled Platelet Agranulation Cancelled Clumped Platelets Cancelled Giant Platelets Cancelled Platelet Satelliting Cancelled Bizarre Platelets Cancelled Plt Morphology Comment Cancelled Polychromasia Cancelled Hypochromasia Cancelled Poikilocytosis Cancelled Basophilic Stippling Cancelled Anisocytosis Cancelled Microcytosis Cancelled Macrocytosis Cancelled Spherocytes Cancelled Micro Spherocytes Cancelled Pappenheimer Bodies Cancelled Siderocytes Cancelled Sickle Cells Cancelled Target Cells Cancelled Tear Drop Cells Cancelled Ovalocytes Cancelled Stomatocytes Cancelled Helmet Cells Cancelled [place] Bodies Cancelled [place] Rings Cancelled [place] Cells Cancelled Elliptocytes Cancelled Acanthocytes (Spur) Cancelled Rouleaux Cancelled Hemoglobin C Crystals Cancelled Schistocytes Cancelled RBC Morph Comment Cancelled Smear Path Review Cancelled Billy Bodies Cancelled Sodium 139 (136-145) mmol/L Potassium 4.3 (3.5-5.1) mmol/L Chloride 96 L (98-107) mmol/L Carbon Dioxide 32.2 H (21.0-32.0) mmol/L Anion Gap 15.1 H (5-15) mmol/L BUN 15 (7-18) mg/dL Creatinine 0.43 L (0.51-1.17) mg/dL Est Cr Clr Drug Dosing 87.76 mL/min Estimated GFR (MDRD) > 60 mL/min Glucose 197 H (70-140) mg/dL POC Glucose (74-106) mg/dl Lactic Acid 2.4 H (0.4-2.0) mmol/L Calcium 9.5 (8.7-10.3) mg/dL Total Bilirubin 1.0 (0.2-1.0) mg/dL AST 19 (15-37) U/L ALT 16 (14-63) U/L Alkaline Phosphatase 55 (46-116) U/L Creatine Kinase 26 (26-276) U/L CK-MB (CK-2) < 0.50 (0.00-3.60) ng/mL Troponin I < 0.017 (0.000-0.056) ng/mL Total Protein 8.3 H (6.4-8.2) g/dL Albumin 3.09 L (3.40-5.00) g/dL Specimen Type Urine Color (YELLOW) Urine Appearance (CLEAR) Urine pH (5.0-9.0) Ur Specific [place] (1.005-1.030) Urine Protein (NEGATIVE) mg/dL Urine Glucose (UA) (NEGATIVE) mg/dL Urine Ketones (NEGATIVE) mg/dL Urine Occult Blood (NEGATIVE) Urine Nitrite (NEGATIVE) Urine Bilirubin (NEGATIVE) Urine Urobilinogen (0.2-1.0) E.U./dL Ur Leukocyte Esterase (NEGATIVE) U Hyaline Cast (Auto) Urine RBC (0-5) /HPF Urine WBC (0-5) /HPF Ur Epithelial Cells /LPF Urine Bacteria (NONE TO FEW) /HPF Urine Mucus (NEGATIVE) /LPF SARS CoV-2 RNA Rapid LINA (NEGATIVE) Bld Parasites Quantity Cancelled Slides for Path Review Cancelled 01/02/21 01/02/21 01/02/21 Range/Units 08:15 09:15 09:20 WBC 7.43 Corrected WBC RBC 3.68 L Hgb 11.5 L Hct 37.9 MCV 103.0 H D MCH 31.3 H MCHC 30.3 L RDW 15.3 H Plt Count 369 MPV 8.4 Immature Gran % (Auto) 0.5 Neut % (Auto) 86.2 H Lymph % (Auto) 9.3 L [place] % (Auto) 3.8 Eos % (Auto) 0.1 L Baso % (Auto) 0.1 Neut # (Auto) 6.40 Lymph # (Auto) 0.69 L [place] # (Auto) 0.28 Eos # (Auto) 0.01 L Baso # (Auto) 0.01 Immature Gran # (Auto) 0.04 Add Manual Diff Neutrophils % (Manual) Band Neutrophils % Lymphocytes % (Manual) Atypical Lymphs % Immat Monocytes % (Man) Monocytes % (Manual) Eosinophils % (Manual) Basophils % (Manual) Metamyelocytes % Myelocytes % Promyelocytes % Blast Cells % Plasma Cell % (Manual) Immature Gran # Absolute Neutrophils Absolute Seg Neuts Band Neutrophils # Lymphocytes # (Manual) Monocytes # (Manual) Eosinophils # (Manual) Basophils # (Manual) Absolute Metamyelocyte Absolute Myelocytes Absolute Promyelocytes Absolute Plasma Cells Nucleated RBCs Differential Comment Pathologist Review Bilobed Neuts Hypersegmented Neuts Variant Lymphocytes Atypical Lymphocytes Abnormal Lymphocytes Plasmacytoid Lymphs Reactive Lymphocytes Vacuolated Monocytes Absolute Blast Cells Smudge Cells Toxic Granulation Dohle Bodies Pelger-Huet Cells Megakaryocytic Frags Remy Rods WBC Morphology Comment Platelet Estimate Hypogranular Platelets Platelet Agranulation Clumped Platelets Giant Platelets Platelet Satelliting Bizarre Platelets Plt Morphology Comment Polychromasia Hypochromasia Poikilocytosis Basophilic Stippling Anisocytosis Microcytosis Macrocytosis Spherocytes Micro Spherocytes Pappenheimer Bodies Siderocytes Sickle Cells Target Cells Tear Drop Cells Ovalocytes Stomatocytes Helmet Cells [place] Bodies [place] Rings [place] Cells Elliptocytes Acanthocytes (Spur) Rouleaux Hemoglobin C Crystals Schistocytes RBC Morph Comment Smear Path Review Billy Bodies Sodium (136-145) mmol/L Potassium (3.5-5.1) mmol/L Chloride (98-107) mmol/L Carbon Dioxide (21.0-32.0) mmol/L Anion Gap (5-15) mmol/L BUN (7-18) mg/dL Creatinine (0.51-1.17) mg/dL Est Cr Clr Drug Dosing mL/min Estimated GFR (MDRD) mL/min Glucose (70-140) mg/dL POC Glucose 169 H (74-106) mg/dl Lactic Acid (0.4-2.0) mmol/L Calcium (8.7-10.3) mg/dL Total Bilirubin (0.2-1.0) mg/dL AST (15-37) U/L ALT (14-63) U/L Alkaline Phosphatase (46-116) U/L Creatine Kinase (26-276) U/L CK-MB (CK-2) (0.00-3.60) ng/mL Troponin I (0.000-0.056) ng/mL Total Protein (6.4-8.2) g/dL Albumin (3.40-5.00) g/dL Specimen Type Urincath Urine Color Yellow (YELLOW) Urine Appearance Clear (CLEAR) Urine pH 6.5 (5.0-9.0) Ur Specific [place] 1.025 (1.005-1.030) Urine Protein Trace H (NEGATIVE) mg/dL Urine Glucose (UA) >=1000 H (NEGATIVE) mg/dL Urine Ketones 40 H (NEGATIVE) mg/dL Urine Occult Blood Negative (NEGATIVE) Urine Nitrite Negative (NEGATIVE) Urine Bilirubin Small H (NEGATIVE) Urine Urobilinogen 1.0 (0.2-1.0) E.U./dL Ur Leukocyte Esterase Negative (NEGATIVE) U Hyaline Cast (Auto) Occasional Urine RBC 0-5 (0-5) /HPF Urine WBC 5-10 H (0-5) /HPF Ur Epithelial Cells Few /LPF Urine Bacteria Few (NONE TO FEW) /HPF Urine Mucus Occasional H (NEGATIVE) /LPF SARS CoV-2 RNA Rapid LINA (NEGATIVE) Bld Parasites Quantity Slides for Path Review 01/02/21 Range/Units 09:41 WBC Corrected WBC RBC Hgb Hct MCV MCH MCHC RDW Plt Count MPV Immature Gran % (Auto) Neut % (Auto) Lymph % (Auto) [place] % (Auto) Eos % (Auto) Baso % (Auto) Neut # (Auto) Lymph # (Auto) [place] # (Auto) Eos # (Auto) Baso # (Auto) Immature Gran # (Auto) Add Manual Diff Neutrophils % (Manual) Band Neutrophils % Lymphocytes % (Manual) Atypical Lymphs % Immat Monocytes % (Man) Monocytes % (Manual) Eosinophils % (Manual) Basophils % (Manual) Metamyelocytes % Myelocytes % Promyelocytes % Blast Cells % Plasma Cell % (Manual) Immature Gran # Absolute Neutrophils Absolute Seg Neuts Band Neutrophils # Lymphocytes # (Manual) Monocytes # (Manual) Eosinophils # (Manual) Basophils # (Manual) Absolute Metamyelocyte Absolute Myelocytes Absolute Promyelocytes Absolute Plasma Cells Nucleated RBCs Differential Comment Pathologist Review Bilobed Neuts Hypersegmented Neuts Variant Lymphocytes Atypical Lymphocytes Abnormal Lymphocytes Plasmacytoid Lymphs Reactive Lymphocytes Vacuolated Monocytes Absolute Blast Cells Smudge Cells Toxic Granulation Dohle Bodies Pelger-Huet Cells Megakaryocytic Frags Remy Rods WBC Morphology Comment Platelet Estimate Hypogranular Platelets Platelet Agranulation Clumped Platelets Giant Platelets Platelet Satelliting Bizarre Platelets Plt Morphology Comment Polychromasia Hypochromasia Poikilocytosis Basophilic Stippling Anisocytosis Microcytosis Macrocytosis Spherocytes Micro Spherocytes Pappenheimer Bodies Siderocytes Sickle Cells Target Cells Tear Drop Cells Ovalocytes Stomatocytes Helmet Cells [place] Bodies [place] Rings Amber Cells Elliptocytes Acanthocytes (Spur) Rouleaux Hemoglobin C Crystals Schistocytes RBC Morph Comment Smear Path Review Billy Bodies Sodium (136-145) mmol/L Potassium (3.5-5.1) mmol/L Chloride (98-107) mmol/L Carbon Dioxide (21.0-32.0) mmol/L Anion Gap (5-15) mmol/L BUN (7-18) mg/dL Creatinine (0.51-1.17) mg/dL Est Cr Clr Drug Dosing mL/min Estimated GFR (MDRD) mL/min Glucose (70-140) mg/dL POC Glucose (74-106) mg/dl Lactic Acid (0.4-2.0) mmol/L Calcium (8.7-10.3) mg/dL Total Bilirubin (0.2-1.0) mg/dL AST (15-37) U/L ALT (14-63) U/L Alkaline Phosphatase (46-116) U/L Creatine Kinase (26-276) U/L CK-MB (CK-2) (0.00-3.60) ng/mL Troponin I (0.000-0.056) ng/mL Total Protein (6.4-8.2) g/dL Albumin (3.40-5.00) g/dL Specimen Type Urine Color (YELLOW) Urine Appearance (CLEAR) Urine pH (5.0-9.0) Ur Specific [place] (1.005-1.030) Urine Protein (NEGATIVE) mg/dL Urine Glucose (UA) (NEGATIVE) mg/dL Urine Ketones (NEGATIVE) mg/dL Urine Occult Blood (NEGATIVE) Urine Nitrite (NEGATIVE) Urine Bilirubin (NEGATIVE) Urine Urobilinogen (0.2-1.0) E.U./dL Ur Leukocyte Esterase (NEGATIVE) U Hyaline Cast (Auto) Urine RBC (0-5) /HPF Urine WBC (0-5) /HPF Ur Epithelial Cells /LPF Urine Bacteria (NONE TO FEW) /HPF Urine Mucus (NEGATIVE) /LPF SARS CoV-2 RNA Rapid LINA Negative (NEGATIVE) Bld Parasites Quantity Slides for Path Review Result Diagrams: 01/02/21 08:15 01/02/21 08:15 Sepsis Event Note - Evaluation Sepsis Screening Result: Possible Severe Sepsis Risk - Focused Exam Vital Signs: Vital Signs Temp Temp Pulse Pulse Resp BP BP 01/02/21 10:42 37.8 C 128 H 38 H 159/96 H 01/02/21 10:00 36.6 C 128 H 26 H 147/88 H 01/02/21 09:27 138 H 105/89 01/02/21 08:45 36.6 C 136 H 33 H 156/94 H 01/02/21 08:10 36.6 C 135 H 35 H 165/99 H Pulse Ox 01/02/21 10:42 96 01/02/21 10:00 95 01/02/21 09:27 01/02/21 08:45 99 01/02/21 08:10 95 Problem List Initiated/Reviewed/Updated: Yes Orders Last 24hrs: Active Orders 24 hr Category Date Time Status Patient Status [ADT] Routine ADT 01/02/21 10:28 Active Patient Status [ADT] Routine ADT 01/02/21 10:49 Ordered Cardiac Monitoring [RC] CONTINUOUS Care 01/02/21 10:51 Ordered Glucose [Blood Glucose Check, Bedside] [RC] QIDACANDBED Care 01/02/21 11:05 Ordered Intake and Output [RC] QSHIFT Care 01/02/21 10:51 Ordered Oxygen Therapy [RC] PRN Care 01/02/21 10:49 Ordered Up With Assistance [RC] ASDIRECTED Care 01/02/21 10:49 Ordered VTE/DVT Education [RC] PER UNIT ROUTINE Care 01/02/21 10:49 Ordered Vital Signs [RC] Q4H Care 01/02/21 10:49 Ordered [place] [employer] Diet [DIET] Diet 01/02/21 Breakfast Ordered C-REACTIVE PROTEIN [CHEM] Routine Lab 01/02/21 10:56 Ordered CBC WITH AUTO DIFF [HEME] AM Lab 01/03/21 05:11 Ordered COMPREHENSIVE METABOLIC PN,CMP [CHEM] AM Lab 01/03/21 05:11 Ordered CULTURE BLOOD [BC] Stat Lab 01/02/21 08:15 Received CULTURE BLOOD [BC] Stat Lab 01/02/21 08:30 Received MAGNESIUM [CHEM] Routine Lab 01/02/21 10:56 Ordered PROCALCITONIN [REF] Routine Lab 01/02/21 11:06 Ordered TROPONIN I [CHEM] Timed Lab 01/02/21 14:00 Ordered Acetaminophen [Acetaminophen ER] Med 01/02/21 11:01 Ordered 650 mg PO TID PRN Albuterol Sulfate [Albuterol Sulfate] Med 01/02/21 21:00 Ordered 1 ampule NEB BID Benzonatate [Tessalon Perle] Med 01/02/21 11:01 Ordered 200 mg PO 0830,1200,1800 PRN Budesonide [Pulmicort] Med 01/02/21 20:30 Ordered 0.5 mg INH 0830,2030 Cetirizine [ZyrTEC] Med 01/03/21 09:00 Ordered 10 mg PO DAILY Cholecalciferol (Vitamin D3) [Vitamin D3] Med 01/03/21 08:00 Ordered 2,000 unit PO 0800 Codeine/guaiFENesin [Robitussin AC] Med 01/02/21 11:01 Ordered 5 ml PO ASDIRECTED PRN Cranberry Fruit [Cranberry] Med 01/02/21 21:00 Ordered 900 mg PO 2100 Cyanocobalamin (Vitamin B-12) [Vitamin B-12] Med 01/02/21 12:00 Ordered 1,000 mcg PO DAILY@1200 DULoxetine [Cymbalta] Med 01/02/21 21:00 Ordered 60 mg PO 2100 Fenofibrate Nanocrystallized [Fenofibrate] Med 01/02/21 21:00 Ordered 145 mg PO 2100 Gabapentin Med 01/02/21 13:00 Ordered 900 mg PO 1300,1700,2100 Hydrocodone/Acetaminophen [Hydrocodone-Acetamin 10-325 Med 01/02/21 11:01 Ordered mg] 1 tab PO Q4H PRN Hydroxychloroquine [Plaquenil] Med 01/02/21 21:00 Ordered 200 mg PO 2100 Insulin Detemir Med 01/02/21 20:00 Ordered 18 units SUBCUT 2000 Magnesium Oxide [Magnesium] Med 01/02/21 12:00 Ordered 500 mg PO 1200 Omeprazole [Omeprazole] Med 01/03/21 09:00 Ordered 20 mg PO DAILY Sodium Chloride 0.9% [Normal Saline] 1,000 ml Med 01/02/21 08:30 Active IV ASDIRECTED Sodium Chloride 0.9% [Saline Flush] Med 01/02/21 08:23 Active 10 ml FLUSH Q8HR PRN Sulfamethoxazole/Trimethoprim [Bactrim Ds Tablet] Med 01/02/21 11:15 Ordered 1 tab PO ASDIRECTED Triamcinolone Acetonide [Triamcinolone Acetonide 0.1% Med 01/02/21 11:01 Ordered Crm] 1 applic TOP BID PRN azaTHIOprine [Imuran] Med 01/02/21 18:00 Ordered 50 mg PO 0830,1800 busPIRone [Buspar] Med 01/02/21 18:00 Ordered 5 mg PO 0830,1800 predniSONE [predniSONE] Med 01/02/21 12:00 Ordered 10 mg PO 1200 Blood Culture x2 Reflex Set [OM.PC] Stat Oth 01/02/21 08:23 Ordered Peripheral IV Insertion Adult [OM.PC] Routine Oth 01/02/21 08:23 Ordered Code Status [Resuscitation Status] Stat Resus Stat 01/02/21 10:30 Ordered EKG 12 Lead [EK] Urgent Ther 01/02/21 08:24 Ordered Medication Orders Sodium Chloride (Normal Saline) 1,000 mls @ 125 mls/hr IV ASDIRECTED TERESE Last Admin: 01/02/21 09:25 Dose: 125 mls/hr Documented by: [email or web address] Non-Formulary Medication (Acetaminophen [Acetaminophen Er]) 650 mg PO TID PRN PRN Reason: Pain Non-Formulary Medication (Albuterol Sulfate [Albuterol Sulfate]) 1 ampule NEB BID TERESE Non-Formulary Medication (Azathioprine [Imuran]) 50 mg PO 0830,1800 TERESE Non-Formulary Medication (Benzonatate [Tessalon Perle]) 200 mg PO 0830,1200,1800 PRN PRN Reason: Cough Non-Formulary Medication (Budesonide [Pulmicort]) 0.5 mg INH 0830,2030 TERESE Non-Formulary Medication (Buspirone [Buspar]) 5 mg PO 0830,1800 TERESE Non-Formulary Medication (Cetirizine [Zyrtec]) 10 mg PO DAILY TERESE Non-Formulary Medication (Cholecalciferol (Vitamin D3) [Vitamin D3]) 2,000 unit PO 0800 TERESE Non-Formulary Medication (Codeine/Guaifenesin [Robitussin Ac]) 5 ml PO ASDIRE CTED PRN PRN Reason: Cough Non-Formulary Medication (Cranberry Fruit [Cranberry]) 900 mg PO 2100 TERESE Non-Formulary Medication (Cyanocobalamin (Vitamin B-12) [Vitamin B-12]) 1,000 mcg PO DAILY@1200 TERESE Non-Formulary Medication (Duloxetine [Cymbalta]) 60 mg PO 2100 TERESE Non-Formulary Medication (Fenofibrate Nanocrystallized [Fenofibrate]) 145 mg PO 2100 TERESE Non-Formulary Medication (Gabapentin) 900 mg PO 1300,1700,2100 TERESE Non-Formulary Medication (Hydrocodone/Acetaminophen [Hydrocodone-Acetamin 10-325 Mg]) 1 tab PO Q4H PRN PRN Reason: Pain Non-Formulary Medication (Hydroxychloroquine [Plaquenil]) 200 mg PO 2100 TERESE Non-Formulary Medication (Magnesium Oxide [Magnesium]) 500 mg PO 1200 TERESE Non-Formulary Medication (Omeprazole [Omeprazole]) 20 mg PO DAILY TERESE Non-Formulary Medication (Prednisone [Prednisone]) 10 mg PO 1200 TERESE Non-Formulary Medication (Sulfamethoxazole/Trimethoprim [Bactrim Ds Tablet]) 1 tab PO ASDIRECTED TERESE Non-Formulary Medication (Triamcinolone Acetonide [Triamcinolone Acetonide 0.1% Crm]) 1 applic TOP BID PRN PRN Reason: Rash Non-Formulary Medication (Insulin Detemir) 18 units SUBCUT 2000 TERESE Sodium Chloride (Sodium Chloride 0.9% 10 Ml Syringe) 10 ml FLUSH Q8HR PRN PRN Reason: keep vein open Assessment/Plan Comment:: HPI summary: 80 year old female with known pulmonary fibrosis admitted to observation status from the [facility] ED department after presenting the AM of 01/02/2021 with increased confusion from baseline with noted weakness since one day prior to presentation. Family notes that she has had an increased cough. She did fall one day prior to presentation. It is unknown if there were inciting circumstances. Patient has fallen previously in the past. There were no known injuries from the fall. Family noted that in the morning she had increased confusion, had been incontinent of urine and was markedly weak where she was not helping with self care as usual. They brought her by private care to the hospital for evaluation. ED course: -VS: T98, P138, R33, BP 105/89, O2 sat 99% -Lab: WBC 7.43, Hgb 11.5 (baseline 12), Hct 37.9, RBC 3.68, neut 86.2, Na 139, K 4.3, Cl 96, CO2 32.2, anion gap 15.1, BUN 15, creatinine 0.43, GFR >60, glucose 197, lactic acid 2.4, Ca 9.5, LFT nl, CK 26, Ck-Mb <0.50, Troponin <0.017, total protein 8.3, albumin 3.09; COVID negative; blood cultures x 2 obtained -Urine: >1000 glucose, 40 ketones, small bili, negative leukocyte esterase, negative nitrites, occ hyaline casts, 0-5 RBC, 5-10 WBC, few epithelial cells and few bacteria. -Meds: metoprolol tartrate 2.5mg IVP for tachycardia, brought down to 120s -NS 125mL/hr -EKG: NSR, rate 141, p waves present, St-T wave depression -CXR: extensive bilateral infiltrates, apparently this is related to fibrosis, question of bilateral hilar adenopathy -CT head: No acute process -Admit obs/tele Hospital course: 01/02/2021: Patient in bed with daughter (January) and son (Aquiles) present. She offers no complaints at this time. Nursing reports temp has gone up to 100.1 and patient is diaphoretic. Added procalcitonin, CRP (>11), magnesium (1.8) to labs. Patient is more short of breath and family reports she has been coughing more in the last 24-48 hours. Nursing reports sats had dipped to 70s and patient's oxygen had to be increased to 5L to maintain sat of 90%. Patient will be started on empiric antibiotic treatment at this time. Patient is immunocompromised and has risk factors for BRIGIDO, will be placed on levofloxacin 750mg daily IV and plan for de-escalation depending on response and cultures. Hospitalization problems and plan: # Tachycardia # Clinical dehydration # Elevated lactic acid -possible early sepsis -NS 125mL/hr -Blood cultures x2 obtained and pending -repeat lactic acid in four hours -procalcitonin pending # Acute on chronic hypoxic respiratory failure with underlying severe pulmonary fibrosis -O2 to keep sat >90% # Bilateral lobe pneumonia -Blood cultures pending -Sputum pending -levofloxacin 750mg IV QD Chronic, stable conditions: -Pulmonary fibrosis / ILD / Pseudomonas colonization: Pulmicort BID, prednisone 12.5mg daily, TMP-SMX DS daily MWF, benzonatate 200mg TID prn, albuterol HFA/neb prn. 03/09/2020 CT chest with extensive changes of fibrosis & honeycombing in the lung bases favoring UIP vs fibrosing NSIP. Sputum culture revealed normal [place]. Managed by Dr. Mcginnis, pulmonology, with next appointment 10/17/2020. - Chronic hypoxic respiratory failure: 3lpm via nasal cannula continuously. Last oxygen evaluation 03/09/2020. - Pulmonary HTN: PASP 49mmHg on 12/17/19 echo. Likely type 3. Evaluated by cardiology 12/17/19 when catheterization was declined. - GERD / Dysphagia: Pantoprazole 40mg daily. Stable. - DMT2: Metformin XR 500mg TID (hold for now), Levemir 15un daily. - HLD: Fenofibrate 145mg daily. - B12 deficiency: B12 1000mcg daily - Mg deficiency: MgOx 500mg daily. - Calcium pyrophosphate deposition disease - RA: Azathioprine 100mg BID, hydroxychloroquine 200mg daily. Managed by Dr. Giraldo, rheumatology, with next appointment 10/17/2020. - Compression fracture / Osteopenia of multiple sites / Chronic prednisone use: Prolia every six months and Vitamin D 2000un daily. Previously received Reclast and Forteo. - Chronic pain due to RA, idiopathic peripheral neuropathy, and compression fracture: [place] 5/325 BID, acetaminophen 975mg between [place] doses q4h during day, gabapentin 900mg TID, Rup rub prn. Miguel knee injections on 06/09/20 without subsequent help. - Recurrent falls / Deconditioning - Depression / Anxiety: Duloxetine 60mg daily, buspirone 5mg BID. - Memory loss - Allergic rhinitis: Cetirizine 10mg daily. Stable. - Dermatitis: Triamcinolone prn. 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 Misc. Medications: Cranberry 900mg daily. Hospitalization details: # FEN: NS at 125mL/hr; electrolytes stable; ADA diet lactose free # PPX: teds # Code status: DNR/DNI, POLST signed # Emergency contact: January (daughter) updated at bedside # Disposition: home to care of daughter upon overnight observation to return to baseline functioning - Mortality Measure Prognosis:: Poor
[2021-01-02] MEDS ORDERED: BENZONATATE 100 MG PO SCH (12:00)
[2021-01-02] MEDS ORDERED: Codeine/guaiFENesin 10-100 MG/5 ML Syrup 5 ML Cup PO PRN (12:22)
[2021-01-02] MEDS ORDERED: Triamcinolone Acetonide 0.1% Crm 15 GM Tube TOP PRN (12:24)
[2021-01-02] MEDS ORDERED: Acetaminophen/HYDROcodone 325-10 MG Tab PO PRN (12:29)
[2021-01-02] MEDS ORDERED: BENZONATATE 200 MG PO PRN (12:31)
[2021-01-02] MEDS ORDERED: Glucagon,Human Recombinant 1 MG Vial IM PRN (12:39)
[2021-01-02] MEDS: PREDNISONE 5 MG PO SCH (12:55)
[2021-01-02] MEDS: GABAPENTIN 300 MG PO SCH ×3 (13:00→20:46)
[2021-01-02] MEDS: Acetaminophen 650 MG Tab.ER PO SCH ×2 (13:03→20:46)
[2021-01-02] MEDS: Magnesium Oxide 500 MG Tab PO SCH (13:03)
[2021-01-02] MEDS: Levofloxacin/Dextrose 5%-Water 500 MG in Premix Bag 1 BAG IV SCH (13:08)
[2021-01-02] MEDS: Sodium Chloride 0.9% 10 ML Syringe FLUSH PRN (13:16)
[2021-01-02] MEDS: BENZONATATE 200 MG PO SCH ×2 (13:54→17:00)
[2021-01-02] MEDS: Cyanocobalamin (Vitamin B12) 500 MCG Tab PO SCH (13:54)
[2021-01-02] MEDS: Levofloxacin/Dextrose 5%-Water 250 MG in Premix Bag 1 BAG IV SCH (14:12)
[2021-01-02] MEDS: Acetaminophen/HYDROcodone 325-10 MG Tab PO SCH (16:08)
[2021-01-02] MEDS: AZATHIOPRINE 50 MG PO SCH (17:00)
[2021-01-02] MEDS ORDERED: TRIMETHOPRIM PO SCH (17:00)
[2021-01-02] MEDS ORDERED: SULFAMETHOXAZOLE PO SCH (17:00)
[2021-01-02] MEDS: BUSPIRONE 5 MG PO SCH (17:00)
[2021-01-02] MEDS: Insulin Aspart 100 Units/ML 3 ML Pen SUBCUT SCH ×2 (17:55→22:25)
[2021-01-02] MEDS: CRANBERRY 900 MG PO SCH (20:18)
[2021-01-02] MEDS: FENOFIBRATE 145 MG PO SCH (20:19)
[2021-01-02] MEDS: DULOXETINE 60 MG PO SCH (20:19)
[2021-01-02] MEDS: HYDROXYCHLOROQUINE 200 MG PO SCH (20:20)
[2021-01-02] MEDS: Albuterol 0.083% 2.5 MG/3 ML Neb Soln INH SCH (20:23)
[2021-01-02] MEDS: LEVEMIR INSULIN SUBCUT SCH (20:44)
[2021-01-02] MEDS: BUDESONIDE 0.5 MG/2 ML INH SCH (20:48)
[2021-01-03] MEDS: Acetaminophen/HYDROcodone 325-10 MG Tab PO SCH ×5 (00:06→23:02)
[2021-01-03] MEDS: Sodium Chloride 0.9% 1,000 ML IV SCH ×2 (01:10→11:30)
[2021-01-03] MEDS: Acetaminophen 650 MG Tab.ER PO SCH ×3 (04:15→20:16)
[2021-01-03] MEDS: Insulin Aspart 100 Units/ML 3 ML Pen SUBCUT SCH ×4 (07:28→22:51)
[2021-01-03] MEDS: Albuterol 0.083% 2.5 MG/3 ML Neb Soln INH SCH ×2 (07:29→19:58)
[2021-01-03] MEDS: BUDESONIDE 0.5 MG/2 ML INH SCH ×2 (07:40→20:06)
[2021-01-03 07:48] LABS: ANION GAP 12.4 mmol/L (5-15); CHLORIDE,CL 98 mmol/L (98-107); SODIUM,NA 138 mmol/L (136-145)
[2021-01-03] MEDS: AZATHIOPRINE 50 MG PO SCH ×2 (08:51→17:18)
[2021-01-03] MEDS: BUSPIRONE 5 MG PO SCH ×2 (08:52→17:19)
[2021-01-03] MEDS: BENZONATATE 200 MG PO SCH ×3 (08:52→17:55)
[2021-01-03] MEDS: PANTOPRAZOLE 20 MG PO SCH (08:53)
[2021-01-03] MEDS: Cetirizine 10 MG Tab PO SCH (09:01)
[2021-01-03] MEDS: Cholecalciferol (Vitamin D3) 25 MCG Tab PO SCH (09:01)
--- NOTE | 2021-01-03 09:53 | PCM.PN ---
- General Info Date of Service: 01/03/21 Functional Status: Reports: Pain Controlled, Tolerating Diet - Review of Systems General: Reports: Weakness. Denies: Chills HEENT: Reports: No Symptoms Pulmonary: Reports: Shortness of Breath (SOB at baseline), Cough, Sputum. Denies: Wheezing Gastrointestinal: Reports: No Symptoms Genitourinary: Reports: No Symptoms Musculoskeletal: Reports: Back Pain (chronic back pain) Skin: Reports: Diaphoresis (mild) Neurological: Denies: Confusion, Headache Psychiatric: Denies: Confusion - Patient Data Vitals - Most Recent: Last Vital Signs Temp 98.2 F 01/03/21 05:55 Pulse 116 H 01/03/21 07:34 Resp 28 H 01/03/21 05:55 BP 152/82 H 01/03/21 05:55 Pulse Ox 93 L 01/03/21 05:55 Weight - Most Recent: 120 lb I&O - Last 24 Hours: Intake & Output 01/02/21 01/03/21 01/03/21 22:59 06:59 14:59 Intake Total 857 1812 Output Total 1050 750 Balance -193 1062 Lab Results Last 24 Hours: Laboratory Results - last 24 hr 01/02/21 01/02/21 01/02/21 Range/Units 08:15 09:20 09:41 WBC (5.00-10.00) 10^3/uL RBC (3.80-5.50) 10^6/uL Hgb (12.0-16.0) g/dL Hct (37.0-47.0) % MCV (82.0-92.0) fL MCH (27.0-31.0) pg MCHC (32.0-36.0) g/dL RDW (11.5-14.5) % Plt Count (150-400) 10^3/uL MPV (7.4-10.4) fL Immature Gran % (Auto) (0.0-5.0) % Neut % (Auto) (50.0-70.0) % Lymph % (Auto) (20.0-40.0) % [place] % (Auto) (2.0-8.0) % Eos % (Auto) (1.0-3.0) % Baso % (Auto) (0.0-1.0) % Neut # (Auto) (2.50-7.00) 10^3/uL Lymph # (Auto) (1.00-4.00) 10^3/uL [place] # (Auto) (0.10-0.80) 10^3/uL Eos # (Auto) (0.10-0.30) 10^3/uL Baso # (Auto) (0.00-0.10) 10^3/uL Immature Gran # (Auto) (0.00-0.50) 10^3/uL Sodium (136-145) mmol/L Potassium (3.5-5.1) mmol/L Chloride (98-107) mmol/L Carbon Dioxide (21.0-32.0) mmol/L Anion Gap (5-15) mmol/L BUN (7-18) mg/dL Creatinine (0.51-1.17) mg/dL Est Cr Clr Drug Dosing mL/min Estimated GFR (MDRD) mL/min Glucose (70-140) mg/dL POC Glucose 169 H (74-106) mg/dl Lactic Acid (0.4-2.0) mmol/L Calcium (8.7-10.3) mg/dL Magnesium 1.8 (1.8-2.4) mg/dL Total Bilirubin (0.2-1.0) mg/dL AST (15-37) U/L ALT (14-63) U/L Alkaline Phosphatase (46-116) U/L Troponin I (0.000-0.056) ng/mL C-Reactive Protein > 11.0 H (0.0-0.9) mg/dL Total Protein (6.4-8.2) g/dL Albumin (3.40-5.00) g/dL Procalcitonin ng/mL SARS CoV-2 RNA Rapid LINA Negative (NEGATIVE) 01/02/21 01/02/21 01/02/21 Range/Units 11:00 12:07 14:00 WBC (5.00-10.00) 10^3/uL RBC (3.80-5.50) 10^6/uL Hgb (12.0-16.0) g/dL Hct (37.0-47.0) % MCV (82.0-92.0) fL MCH (27.0-31.0) pg MCHC (32.0-36.0) g/dL RDW (11.5-14.5) % Plt Count (150-400) 10^3/uL MPV (7.4-10.4) fL Immature Gran % (Auto) (0.0-5.0) % Neut % (Auto) (50.0-70.0) % Lymph % (Auto) (20.0-40.0) % [place] % (Auto) (2.0-8.0) % Eos % (Auto) (1.0-3.0) % Baso % (Auto) (0.0-1.0) % Neut # (Auto) (2.50-7.00) 10^3/uL Lymph # (Auto) (1.00-4.00) 10^3/uL [place] # (Auto) (0.10-0.80) 10^3/uL Eos # (Auto) (0.10-0.30) 10^3/uL Baso # (Auto) (0.00-0.10) 10^3/uL Immature Gran # (Auto) (0.00-0.50) 10^3/uL Sodium (136-145) mmol/L Potassium (3.5-5.1) mmol/L Chloride (98-107) mmol/L Carbon Dioxide (21.0-32.0) mmol/L Anion Gap (5-15) mmol/L BUN (7-18) mg/dL Creatinine (0.51-1.17) mg/dL Est Cr Clr Drug Dosing mL/min Estimated GFR (MDRD) mL/min Glucose (70-140) mg/dL POC Glucose 180 H (74-106) mg/dl Lactic Acid (0.4-2.0) mmol/L Calcium (8.7-10.3) mg/dL Magnesium (1.8-2.4) mg/dL Total Bilirubin (0.2-1.0) mg/dL AST (15-37) U/L ALT (14-63) U/L Alkaline Phosphatase (46-116) U/L Troponin I < 0.017 (0.000-0.056) ng/mL C-Reactive Protein (0.0-0.9) mg/dL Total Protein (6.4-8.2) g/dL Albumin (3.40-5.00) g/dL Procalcitonin 0.55 H ng/mL SARS CoV-2 RNA Rapid LINA (NEGATIVE) 01/02/21 01/02/21 01/02/21 Range/Units 14:00 17:45 20:17 WBC (5.00-10.00) 10^3/uL RBC (3.80-5.50) 10^6/uL Hgb (12.0-16.0) g/dL Hct (37.0-47.0) % MCV (82.0-92.0) fL MCH (27.0-31.0) pg MCHC (32.0-36.0) g/dL RDW (11.5-14.5) % Plt Count (150-400) 10^3/uL MPV (7.4-10.4) fL Immature Gran % (Auto) (0.0-5.0) % Neut % (Auto) (50.0-70.0) % Lymph % (Auto) (20.0-40.0) % [place] % (Auto) (2.0-8.0) % Eos % (Auto) (1.0-3.0) % Baso % (Auto) (0.0-1.0) % Neut # (Auto) (2.50-7.00) 10^3/uL Lymph # (Auto) (1.00-4.00) 10^3/uL [place] # (Auto) (0.10-0.80) 10^3/uL Eos # (Auto) (0.10-0.30) 10^3/uL Baso # (Auto) (0.00-0.10) 10^3/uL Immature Gran # (Auto) (0.00-0.50) 10^3/uL Sodium (136-145) mmol/L Potassium (3.5-5.1) mmol/L Chloride (98-107) mmol/L Carbon Dioxide (21.0-32.0) mmol/L Anion Gap (5-15) mmol/L BUN (7-18) mg/dL Creatinine (0.51-1.17) mg/dL Est Cr Clr Drug Dosing mL/min Estimated GFR (MDRD) mL/min Glucose (70-140) mg/dL POC Glucose 223 H 215 H (74-106) mg/dl Lactic Acid 2.0 (0.4-2.0) mmol/L Calcium (8.7-10.3) mg/dL Magnesium (1.8-2.4) mg/dL Total Bilirubin (0.2-1.0) mg/dL AST (15-37) U/L ALT (14-63) U/L Alkaline Phosphatase (46-116) U/L Troponin I (0.000-0.056) ng/mL C-Reactive Protein (0.0-0.9) mg/dL Total Protein (6.4-8.2) g/dL Albumin (3.40-5.00) g/dL Procalcitonin ng/mL SARS CoV-2 RNA Rapid LINA (NEGATIVE) 01/02/21 01/03/21 01/03/21 Range/Units 22:19 07:15 07:15 WBC 3.20 L (5.00-10.00) 10^3/uL RBC 3.27 L (3.80-5.50) 10^6/uL Hgb 10.2 L (12.0-16.0) g/dL Hct 33.5 L (37.0-47.0) % MCV 102.4 H (82.0-92.0) fL MCH 31.2 H (27.0-31.0) pg MCHC 30.4 L (32.0-36.0) g/dL RDW 15.4 H (11.5-14.5) % Plt Count 308 (150-400) 10^3/uL MPV 7.9 (7.4-10.4) fL Immature Gran % (Auto) 0.3 (0.0-5.0) % Neut % (Auto) 86.3 H (50.0-70.0) % Lymph % (Auto) 8.4 L (20.0-40.0) % [place] % (Auto) 4.7 (2.0-8.0) % Eos % (Auto) 0.3 L (1.0-3.0) % Baso % (Auto) 0.0 (0.0-1.0) % Neut # (Auto) 2.76 (2.50-7.00) 10^3/uL Lymph # (Auto) 0.27 L (1.00-4.00) 10^3/uL [place] # (Auto) 0.15 (0.10-0.80) 10^3/uL Eos # (Auto) 0.01 L (0.10-0.30) 10^3/uL Baso # (Auto) 0.00 (0.00-0.10) 10^3/uL Immature Gran # (Auto) 0.01 (0.00-0.50) 10^3/uL Sodium 138 (136-145) mmol/L Potassium 3.7 (3.5-5.1) mmol/L Chloride 98 (98-107) mmol/L Carbon Dioxide 31.3 (21.0-32.0) mmol/L Anion Gap 12.4 (5-15) mmol/L BUN 8 (7-18) mg/dL Creatinine 0.41 L (0.51-1.17) mg/dL Est Cr Clr Drug Dosing 92.04 mL/min Estimated GFR (MDRD) > 60 mL/min Glucose 99 (70-140) mg/dL POC Glucose 168 H (74-106) mg/dl Lactic Acid (0.4-2.0) mmol/L Calcium 8.6 L (8.7-10.3) mg/dL Magnesium (1.8-2.4) mg/dL Total Bilirubin 0.5 (0.2-1.0) mg/dL AST 10 L (15-37) U/L ALT 14 (14-63) U/L Alkaline Phosphatase 42 L (46-116) U/L Troponin I (0.000-0.056) ng/mL C-Reactive Protein > 11.0 H (0.0-0.9) mg/dL Total Protein 7.0 (6.4-8.2) g/dL Albumin 2.43 L (3.40-5.00) g/dL Procalcitonin ng/mL SARS CoV-2 RNA Rapid LINA (NEGATIVE) 01/03/21 Range/Units 07:27 WBC (5.00-10.00) 10^3/uL RBC (3.80-5.50) 10^6/uL Hgb (12.0-16.0) g/dL Hct (37.0-47.0) % MCV (82.0-92.0) fL MCH (27.0-31.0) pg MCHC (32.0-36.0) g/dL RDW (11.5-14.5) % Plt Count (150-400) 10^3/uL MPV (7.4-10.4) fL Immature Gran % (Auto) (0.0-5.0) % Neut % (Auto) (50.0-70.0) % Lymph % (Auto) (20.0-40.0) % [place] % (Auto) (2.0-8.0) % Eos % (Auto) (1.0-3.0) % Baso % (Auto) (0.0-1.0) % Neut # (Auto) (2.50-7.00) 10^3/uL Lymph # (Auto) (1.00-4.00) 10^3/uL [place] # (Auto) (0.10-0.80) 10^3/uL Eos # (Auto) (0.10-0.30) 10^3/uL Baso # (Auto) (0.00-0.10) 10^3/uL Immature Gran # (Auto) (0.00-0.50) 10^3/uL Sodium (136-145) mmol/L Potassium (3.5-5.1) mmol/L Chloride (98-107) mmol/L Carbon Dioxide (21.0-32.0) mmol/L Anion Gap (5-15) mmol/L BUN (7-18) mg/dL Creatinine (0.51-1.17) mg/dL Est Cr Clr Drug Dosing mL/min Estimated GFR (MDRD) mL/min Glucose (70-140) mg/dL POC Glucose 96 (74-106) mg/dl Lactic Acid (0.4-2.0) mmol/L Calcium (8.7-10.3) mg/dL Magnesium (1.8-2.4) mg/dL Total Bilirubin (0.2-1.0) mg/dL AST (15-37) U/L ALT (14-63) U/L Alkaline Phosphatase (46-116) U/L Troponin I (0.000-0.056) ng/mL C-Reactive Protein (0.0-0.9) mg/dL Total Protein (6.4-8.2) g/dL Albumin (3.40-5.00) g/dL Procalcitonin ng/mL SARS CoV-2 RNA Rapid LINA (NEGATIVE) Faisal Results Last 24 Hours: Microbiology 01/02/21 08:30 Aerobic Blood Culture - Preliminary Blood - Arm, Left NO GROWTH AFTER 1 DAY Anaerobic Blood Culture - Preliminary NO GROWTH AFTER 1 DAY 01/02/21 08:15 Aerobic Blood Culture - Preliminary Blood - Arm, Right NO GROWTH AFTER 1 DAY Anaerobic Blood Culture - Preliminary NO GROWTH AFTER 1 DAY 01/02/21 11:00 Gram Stain - Final Wound Med Orders - Current: Current Medications Acetaminophen (Acetaminophen 650 Mg Tab.Er) 650 mg PO TID@0400,1200,2000 REPLACED BY [facility] Last Admin: 01/03/21 04:15 Dose: Not Given Documented by: Hydrocodone Bitart/Acetaminophen (Acetaminophen/Hydrocodone 325-10 Mg Tab) 1 tab PO 0000,0800,1600 REPLACED BY [facility] Last Admin: 01/03/21 07:48 Dose: 1 tab Documented by: Hydrocodone Bitart/Acetaminophen (Acetaminophen/Hydrocodone 325-10 Mg Tab) 1 tab PO DAILY PRN PRN Reason: PAIN Albuterol (Albuterol 0.083% 2.5 Mg/3 Ml Neb Soln) 2.5 mg INH 729,1929 REPLACED BY [facility] Last Admin: 01/03/21 07:29 Dose: 2.5 mg Documented by: Budesonide (Budesonide 0.5 Mg/2 Ml Neb Susp - Ptom) 0.5 mg INH 799,1999 REPLACED BY [facility] Last Admin: 01/03/21 07:40 Dose: 0.5 mg Documented by: Cetirizine HCl (Cetirizine 10 Mg Tab) 10 mg PO DAILY REPLACED BY [facility] Last Admin: 01/03/21 09:01 Dose: 10 mg Documented by: Cholecalciferol (Cholecalciferol (Vitamin D3) 25 Mcg Tab) 50 mcg PO 0900 REPLACED BY [facility] Last Admin: 01/03/21 09:01 Dose: 50 mcg Documented by: Cyanocobalamin (Cyanocobalamin (Vitamin B12) 500 Mcg Tab) 1,000 mcg PO DAILY@1300 REPLACED BY [facility] Last Admin: 01/02/21 13:54 Dose: Not Given Documented by: Dextrose/Water (50% Dextrose In Water 50 Ml Syringe) 50 ml IV ASDIRECTED PRN PRN Reason: Hypoglycemia Gabapentin (Gabapentin 300 Mg Cap - Ptom) 900 mg PO 1300,1700,2100 REPLACED BY [facility] Last Admin: 01/02/21 20:46 Dose: 900 mg Documented by: Glucagon (Glucagon,Human Recombinant 1 Mg Vial) 1 mg IM ASDIRECTED PRN PRN Reason: Hypoglycemia Sodium Chloride (Normal Saline) 1,000 mls @ 125 mls/hr IV ASDIRECTED REPLACED BY [facility] Last Admin: 01/03/21 01:10 Dose: 125 mls/hr Documented by: Levofloxacin/Dextrose 250 mg/ (Premix) 50 mls @ 100 mls/hr IV Q24H REPLACED BY [facility] Last Admin: 01/02/21 14:12 Dose: 100 mls/hr Documented by: Levofloxacin/Dextrose 500 mg/ (Premix) 100 mls @ 100 mls/hr IV Q24H REPLACED BY [facility] Last Admin: 01/02/21 13:08 Dose: 100 mls/hr Documented by: Insulin Aspart (Insulin Aspart 100 Units/Ml 3 Ml Pen) 0 unit SUBCUT WITHMEALSANDBED REPLACED BY [facility]; Protocol Last Admin: 01/03/21 07:28 Dose: Not Given Documented by: Magnesium Oxide (Magnesium Oxide 500 Mg Tab) 500 mg PO 1300 REPLACED BY [facility] Last Admin: 01/02/21 13:03 Dose: 500 mg Documented by: Azathioprine 50 Mg (Tablet - Ptom) 100 mg PO 0900,1700 REPLACED BY [facility] Last Admin: 01/03/21 08:51 Dose: 100 mg Documented by: Buspirone 5 Mg (Tablet - Ptom) 5 mg PO 0900,1700 REPLACED BY [facility] Last Admin: 01/03/21 08:52 Dose: 5 mg Documented by: Cranberry 900mg (Capsule - Ptom) 900 mg PO 2100 REPLACED BY [facility] Last Admin: 01/02/21 20:18 Dose: 900 mg Documented by: Duloxetine 60mg (Capsule - Ptom) 1 each PO 2100 REPLACED BY [facility] Last Admin: 01/02/21 20:19 Dose: 1 each Documented by: Fenofibrate 145 Mg (Tablet - Ptom) 145 mg PO 2100 REPLACED BY [facility] Last Admin: 01/02/21 20:19 Dose: 145 mg Documented by: Hydroxychloroquine [ Plaquenil] 200 Mg Tablet - Ptom 200 mg PO 2100 REPLACED BY [facility] Last Admin: 01/02/21 20:20 Dose: 200 mg Documented by: Pantoprazole Dr 20mg (Tablet - Ptom) 20 mg PO DAILY REPLACED BY [facility] Last Admin: 01/03/21 08:53 Dose: 20 mg Documented by: Levemir (Insulin Detemir) 100 Unit/Ml Insulin Pen - Ptom 18 units SUBCUT 2000 REPLACED BY [facility] Last Admin: 01/02/21 20:44 Dose: 18 units Documented by: Benzonatate 200 Mg (Capsule - Ptom) 200 mg PO 0900,1300,1700 REPLACED BY [facility] Last Admin: 01/03/21 08:52 Dose: 200 mg Documented by: Benzonatate 200mg (Cap - Ptom) 1 each PO 2100 PRN PRN Reason: COUGH Prednisone (Prednisone 5 Mg Tab - Ptom) 10 mg PO 1300 REPLACED BY [facility] Last Admin: 01/02/21 12:55 Dose: 10 mg Documented by: Sodium Chloride (Sodium Chloride 0.9% 10 Ml Syringe) 10 ml FLUSH Q8HR PRN PRN Reason: keep vein open Last Admin: 01/02/21 13:16 Dose: 10 ml Documented by: Triamcinolone Acetonide (Triamcinolone Acetonide 0.1% Crm 15 Gm Tube) 0 gm TOP BID PRN PRN Reason: Rash Trimethoprim/Sulfamethoxazole (Sulfamethoxazole/Trimethoprim 800-160 Mg Tab - Ptom) 1 tab PO MoWeFr REPLACED BY [facility] Last Admin: 01/02/21 17:00 Dose: 1 tab Documented by: Discontinued Medications Guaifenesin/Codeine Phosphate (Codeine/Guaifenesin 10-100 Mg/5 Ml Syrup 5 Ml Cup) 5 ml PO DAILY PRN PRN Reason: Cough Metoprolol Tartrate (Metoprolol Tartrate 5 Mg/5 Ml Sdv) 2.5 mg IVPUSH ONETIME ONE Stop: 01/02/21 09:24 Last Admin: 01/02/21 09:27 Dose: 2.5 mg Documented by: Benzonatate 100 Mg (Capsule - Ptom) 200 mg PO 0900,1200,1700 REPLACED BY [facility] - Exam Quality Assessment: Supplemental Oxygen (5L, baseline at home 4-5L ) General: Alert, Oriented, Cooperative, No Acute Distress HEENT: Pupils Equal, Mucous Membr. Moist/[place] Neck: Supple Lungs: Decreased Breath Sounds, Rhonchi. No: Wheezing Cardiovascular: Tachycardia. No: Irregular Rhythm GI/Abdominal Exam: Normal Bowel Sounds, Soft, Non-Tender (Female) Exam: Deferred Back Exam: Normal Inspection Extremities: No Pedal Edema, Normal Capillary Refill Peripheral Pulses: 2+: Dorsalis Pedis (L), Dorsalis Pedis (R) Skin: Warm, Moist (slightly moist) Neurological: No New Focal Deficit, Normal Speech Psy/Mental Status: Alert, Normal Affect, Normal Mood #1 Interpretation EKG Date: 01/03/21 Time: 10:02 Rhythm: Other (Sinus tachycardia with premature atrial complexes) Rate (Beats/Min): 128 [place]: Normal P-Wave: Present QRS: Normal ST-T: Normal QT: Normal Comparison: No Change - Patient Data Lab Results Last 24 hrs: Laboratory Results - last 24 hr 01/02/21 01/02/21 01/02/21 Range/Units 08:15 09:20 09:41 WBC (5.00-10.00) 10^3/uL RBC (3.80-5.50) 10^6/uL Hgb (12.0-16.0) g/dL Hct (37.0-47.0) % MCV (82.0-92.0) fL MCH (27.0-31.0) pg MCHC (32.0-36.0) g/dL RDW (11.5-14.5) % Plt Count (150-400) 10^3/uL MPV (7.4-10.4) fL Immature Gran % (Auto) (0.0-5.0) % Neut % (Auto) (50.0-70.0) % Lymph % (Auto) (20.0-40.0) % [place] % (Auto) (2.0-8.0) % Eos % (Auto) (1.0-3.0) % Baso % (Auto) (0.0-1.0) % Neut # (Auto) (2.50-7.00) 10^3/uL Lymph # (Auto) (1.00-4.00) 10^3/uL [place] # (Auto) (0.10-0.80) 10^3/uL Eos # (Auto) (0.10-0.30) 10^3/uL Baso # (Auto) (0.00-0.10) 10^3/uL Immature Gran # (Auto) (0.00-0.50) 10^3/uL Sodium (136-145) mmol/L Potassium (3.5-5.1) mmol/L Chloride (98-107) mmol/L Carbon Dioxide (21.0-32.0) mmol/L Anion Gap (5-15) mmol/L BUN (7-18) mg/dL Creatinine (0.51-1.17) mg/dL Est Cr Clr Drug Dosing mL/min Estimated GFR (MDRD) mL/min Glucose (70-140) mg/dL POC Glucose 169 H (74-106) mg/dl Lactic Acid (0.4-2.0) mmol/L Calcium (8.7-10.3) mg/dL Magnesium 1.8 (1.8-2.4) mg/dL Total Bilirubin (0.2-1.0) mg/dL AST (15-37) U/L ALT (14-63) U/L Alkaline Phosphatase (46-116) U/L Troponin I (0.000-0.056) ng/mL C-Reactive Protein > 11.0 H (0.0-0.9) mg/dL Total Protein (6.4-8.2) g/dL Albumin (3.40-5.00) g/dL Procalcitonin ng/mL SARS CoV-2 RNA Rapid LINA Negative (NEGATIVE) 01/02/21 01/02/21 01/02/21 Range/Units 11:00 12:07 14:00 WBC (5.00-10.00) 10^3/uL RBC (3.80-5.50) 10^6/uL Hgb (12.0-16.0) g/dL Hct (37.0-47.0) % MCV (82.0-92.0) fL MCH (27.0-31.0) pg MCHC (32.0-36.0) g/dL RDW (11.5-14.5) % Plt Count (150-400) 10^3/uL MPV (7.4-10.4) fL Immature Gran % (Auto) (0.0-5.0) % Neut % (Auto) (50.0-70.0) % Lymph % (Auto) (20.0-40.0) % [place] % (Auto) (2.0-8.0) % Eos % (Auto) (1.0-3.0) % Baso % (Auto) (0.0-1.0) % Neut # (Auto) (2.50-7.00) 10^3/uL Lymph # (Auto) (1.00-4.00) 10^3/uL [place] # (Auto) (0.10-0.80) 10^3/uL Eos # (Auto) (0.10-0.30) 10^3/uL Baso # (Auto) (0.00-0.10) 10^3/uL Immature Gran # (Auto) (0.00-0.50) 10^3/uL Sodium (136-145) mmol/L Potassium (3.5-5.1) mmol/L Chloride (98-107) mmol/L Carbon Dioxide (21.0-32.0) mmol/L Anion Gap (5-15) mmol/L BUN (7-18) mg/dL Creatinine (0.51-1.17) mg/dL Est Cr Clr Drug Dosing mL/min Estimated GFR (MDRD) mL/min Glucose (70-140) mg/dL POC Glucose 180 H (74-106) mg/dl Lactic Acid (0.4-2.0) mmol/L Calcium (8.7-10.3) mg/dL Magnesium (1.8-2.4) mg/dL Total Bilirubin (0.2-1.0) mg/dL AST (15-37) U/L ALT (14-63) U/L Alkaline Phosphatase (46-116) U/L Troponin I < 0.017 (0.000-0.056) ng/mL C-Reactive Protein (0.0-0.9) mg/dL Total Protein (6.4-8.2) g/dL Albumin (3.40-5.00) g/dL Procalcitonin 0.55 H ng/mL SARS CoV-2 RNA Rapid LNIA (NEGATIVE) 01/02/21 01/02/21 01/02/21 Range/Units 14:00 17:45 20:17 WBC (5.00-10.00) 10^3/uL RBC (3.80-5.50) 10^6/uL Hgb (12.0-16.0) g/dL Hct (37.0-47.0) % MCV (82.0-92.0) fL MCH (27.0-31.0) pg MCHC (32.0-36.0) g/dL RDW (11.5-14.5) % Plt Count (150-400) 10^3/uL MPV (7.4-10.4) fL Immature Gran % (Auto) (0.0-5.0) % Neut % (Auto) (50.0-70.0) % Lymph % (Auto) (20.0-40.0) % [place] % (Auto) (2.0-8.0) % Eos % (Auto) (1.0-3.0) % Baso % (Auto) (0.0-1.0) % Neut # (Auto) (2.50-7.00) 10^3/uL Lymph # (Auto) (1.00-4.00) 10^3/uL [place] # (Auto) (0.10-0.80) 10^3/uL Eos # (Auto) (0.10-0.30) 10^3/uL Baso # (Auto) (0.00-0.10) 10^3/uL Immature Gran # (Auto) (0.00-0.50) 10^3/uL Sodium (136-145) mmol/L Potassium (3.5-5.1) mmol/L Chloride (98-107) mmol/L Carbon Dioxide (21.0-32.0) mmol/L Anion Gap (5-15) mmol/L BUN (7-18) mg/dL Creatinine (0.51-1.17) mg/dL Est Cr Clr Drug Dosing mL/min Estimated GFR (MDRD) mL/min Glucose (70-140) mg/dL POC Glucose 223 H 215 H (74-106) mg/dl Lactic Acid 2.0 (0.4-2.0) mmol/L Calcium (8.7-10.3) mg/dL Magnesium (1.8-2.4) mg/dL Total Bilirubin (0.2-1.0) mg/dL AST (15-37) U/L ALT (14-63) U/L Alkaline Phosphatase (46-116) U/L Troponin I (0.000-0.056) ng/mL C-Reactive Protein (0.0-0.9) mg/dL Total Protein (6.4-8.2) g/dL Albumin (3.40-5.00) g/dL Procalcitonin ng/mL SARS CoV-2 RNA Rapid LINA (NEGATIVE) 01/02/21 01/03/21 01/03/21 Range/Units 22:19 07:15 07:15 WBC 3.20 L (5.00-10.00) 10^3/uL RBC 3.27 L (3.80-5.50) 10^6/uL Hgb 10.2 L (12.0-16.0) g/dL Hct 33.5 L (37.0-47.0) % MCV 102.4 H (82.0-92.0) fL MCH 31.2 H (27.0-31.0) pg MCHC 30.4 L (32.0-36.0) g/dL RDW 15.4 H (11.5-14.5) % Plt Count 308 (150-400) 10^3/uL MPV 7.9 (7.4-10.4) fL Immature Gran % (Auto) 0.3 (0.0-5.0) % Neut % (Auto) 86.3 H (50.0-70.0) % Lymph % (Auto) 8.4 L (20.0-40.0) % [place] % (Auto) 4.7 (2.0-8.0) % Eos % (Auto) 0.3 L (1.0-3.0) % Baso % (Auto) 0.0 (0.0-1.0) % Neut # (Auto) 2.76 (2.50-7.00) 10^3/uL Lymph # (Auto) 0.27 L (1.00-4.00) 10^3/uL [place] # (Auto) 0.15 (0.10-0.80) 10^3/uL Eos # (Auto) 0.01 L (0.10-0.30) 10^3/uL Baso # (Auto) 0.00 (0.00-0.10) 10^3/uL Immature Gran # (Auto) 0.01 (0.00-0.50) 10^3/uL Sodium 138 (136-145) mmol/L Potassium 3.7 (3.5-5.1) mmol/L Chloride 98 (98-107) mmol/L Carbon Dioxide 31.3 (21.0-32.0) mmol/L Anion Gap 12.4 (5-15) mmol/L BUN 8 (7-18) mg/dL Creatinine 0.41 L (0.51-1.17) mg/dL Est Cr Clr Drug Dosing 92.04 mL/min Estimated GFR (MDRD) > 60 mL/min Glucose 99 (70-140) mg/dL POC Glucose 168 H (74-106) mg/dl Lactic Acid (0.4-2.0) mmol/L Calcium 8.6 L (8.7-10.3) mg/dL Magnesium (1.8-2.4) mg/dL Total Bilirubin 0.5 (0.2-1.0) mg/dL AST 10 L (15-37) U/L ALT 14 (14-63) U/L Alkaline Phosphatase 42 L (46-116) U/L Troponin I (0.000-0.056) ng/mL C-Reactive Protein > 11.0 H (0.0-0.9) mg/dL Total Protein 7.0 (6.4-8.2) g/dL Albumin 2.43 L (3.40-5.00) g/dL Procalcitonin ng/mL SARS CoV-2 RNA Rapid LINA (NEGATIVE) 01/03/21 Range/Units 07:27 WBC (5.00-10.00) 10^3/uL RBC (3.80-5.50) 10^6/uL Hgb (12.0-16.0) g/dL Hct (37.0-47.0) % MCV (82.0-92.0) fL MCH (27.0-31.0) pg MCHC (32.0-36.0) g/dL RDW (11.5-14.5) % Plt Count (150-400) 10^3/uL MPV (7.4-10.4) fL Immature Gran % (Auto) (0.0-5.0) % Neut % (Auto) (50.0-70.0) % Lymph % (Auto) (20.0-40.0) % [place] % (Auto) (2.0-8.0) % Eos % (Auto) (1.0-3.0) % Baso % (Auto) (0.0-1.0) % Neut # (Auto) (2.50-7.00) 10^3/uL Lymph # (Auto) (1.00-4.00) 10^3/uL [place] # (Auto) (0.10-0.80) 10^3/uL Eos # (Auto) (0.10-0.30) 10^3/uL Baso # (Auto) (0.00-0.10) 10^3/uL Immature Gran # (Auto) (0.00-0.50) 10^3/uL Sodium (136-145) mmol/L Potassium (3.5-5.1) mmol/L Chloride (98-107) mmol/L Carbon Dioxide (21.0-32.0) mmol/L Anion Gap (5-15) mmol/L BUN (7-18) mg/dL Creatinine (0.51-1.17) mg/dL Est Cr Clr Drug Dosing mL/min Estimated GFR (MDRD) mL/min Glucose (70-140) mg/dL POC Glucose 96 (74-106) mg/dl Lactic Acid (0.4-2.0) mmol/L Calcium (8.7-10.3) mg/dL Magnesium (1.8-2.4) mg/dL Total Bilirubin (0.2-1.0) mg/dL AST (15-37) U/L ALT (14-63) U/L Alkaline Phosphatase (46-116) U/L Troponin I (0.000-0.056) ng/mL C-Reactive Protein (0.0-0.9) mg/dL Total Protein (6.4-8.2) g/dL Albumin (3.40-5.00) g/dL Procalcitonin ng/mL SARS CoV-2 RNA Rapid LINA (NEGATIVE) Result Diagrams: 01/03/21 07:15 01/03/21 07:15 Faisal Results Last 24 hrs: Microbiology 01/02/21 08:30 Aerobic Blood Culture - Preliminary Blood - Arm, Left NO GROWTH AFTER 1 DAY Anaerobic Blood Culture - Preliminary NO GROWTH AFTER 1 DAY 01/02/21 08:15 Aerobic Blood Culture - Preliminary Blood - Arm, Right NO GROWTH AFTER 1 DAY Anaerobic Blood Culture - Preliminary NO GROWTH AFTER 1 DAY 01/02/21 11:00 Gram Stain - Final Wound Sepsis Event Note - Evaluation Sepsis Screening Result: Sepsis Risk - Focused Exam Vital Signs: Vital Signs Temp Pulse Resp BP Pulse Ox 01/03/21 07:34 116 H 01/03/21 05:55 98.2 F 116 H 28 H 152/82 H 93 L 01/03/21 03:00 97.8 F 104 H 32 H 130/81 97 01/02/21 22:51 96.7 F L 92 28 H 132/73 99 - Problem List Review Problem List Initiated/Reviewed/Updated: Yes - My Orders Last 24 Hours: My Active Orders 01/03/21 07:25 LACTIC ACID [CHEM] Routine 01/03/21 09:20 EKG Documentation Completion [RC] ASDIRECTED EKG 12 Lead [EK] Urgent - Plan Plan:: HPI summary: 80 year old female with known pulmonary fibrosis admitted to observation status from the [facility] ED department after presenting the AM of 01/02/2021 with increased confusion from baseline with noted weakness since one day prior to presentation. Family notes that she has had an increased cough. She did fall one day prior to presentation. It is unknown if there were inciting circumstances. Patient has fallen previously in the past. There were no known injuries from the fall. Family noted that in the morning she had increased confusion, had been incontinent of urine and was markedly weak where she was not helping with self care as usual. They brought her by private care to the hospital for evaluation. ED course: -VS: T98, P138, R33, BP 105/89, O2 sat 99% -Lab: WBC 7.43, Hgb 11.5 (baseline 12), Hct 37.9, RBC 3.68, neut 86.2, Na 139, K 4.3, Cl 96, CO2 32.2, anion gap 15.1, BUN 15, creatinine 0.43, GFR >60, glucose 197, lactic acid 2.4, Ca 9.5, LFT nl, CK 26, Ck-Mb <0.50, Troponin <0.017, total protein 8.3, albumin 3.09; COVID negative; blood cultures x 2 obtained -Urine: >1000 glucose, 40 ketones, small bili, negative leukocyte esterase, negative nitrites, occ hyaline casts, 0-5 RBC, 5-10 WBC, few epithelial cells and few bacteria. -Meds: metoprolol tartrate 2.5mg IVP for tachycardia, brought down to 120s -NS 125mL/hr -EKG: NSR, rate 141, p waves present, St-T wave depression -CXR: extensive bilateral infiltrates, apparently this is related to fibrosis, question of bilateral hilar adenopathy -CT head: No acute process -Admit obs/tele Hospital course: 01/02/2021: Patient in bed with daughter (Chasity) and son (Aquiles) present. She offers no complaints at this time. Nursing reports temp has gone up to 100.1 and patient is diaphoretic. Added procalcitonin, CRP (>11), magnesium (1.8) to labs. Patient is more short of breath and family reports she has been coughing more in the last 24-48 hours. Nursing reports sats had dipped to 70s and patient's oxygen had to be increased to 5L to maintain sat of 90%. Patient will be started on empiric antibiotic treatment at this time. Patient is immunocom promised and has risk factors for BRIGIDO, will be placed on levofloxacin 750mg daily IV and plan for de-escalation depending on response and cultures. 01/03/21: Cognitive status improved this morning, patient A/O x3. Afebrile, tachycardic this morning with heart rate 130s to 140s after nebulizer treatment; mildy diaphoretic. This improved to 120s without intervention. Denies chest pain. Repeat EKG indicates sinus tach with PACs. HR 128, [place] 174ms, QRS 82ms, QTc 481. Trops negative x 2 yesterday. BC x2 NGTD. Patient at baseline respiratory status at 5L NC, denies dyspnea. Continues to have minimally productive cough. Lactic acid down to 1.1 today. Mild weakness persists, nursing will assist patient to increase physical activity today to determine readiness for discharge home. Daughter, January at bedside this morning. States patient typically uses a walker at home. She offers concerns regarding her mother's depression when no family is present while hospitalized. Patient ambulating with walker and gait belt, minimal assist. Will plan to continue antibiotics upon discharge due to neutrophilia and known pulmonary disease. Hospitalization problems and plan: # Tachycardia - EKG repeated with sinus tach, PACs. Baseline HR during recent clinic visits in low 100s. # Clinical dehydration - improved, +2000ml fluid balance. IVF decreased to 50ml/hr from 125ml for maintenance. Patient drinking oral fluids. # Elevated lactic acid; resolved. Repeat lactic acid this morning down to 1.1. -Blood cultures x2 - NGTD -procalcitonin 0.55 -WBC 3.2, neutrophils 86.3%. # Acute on chronic hypoxic respiratory failure with underlying severe pulmonary fibrosis -O2 to keep sat >90%, on 5L today maintaining O2 sat 93% -4-5L by nasal cannula at baseline at home # Bilateral lobe pneumonia -Sputum pending -levofloxacin 750mg IV QD -on bactrim three times weekly for prophylaxis # Weakness, recent falls at home -Nursing to ambulate patient and monitor O2 sat with activity -Consider PT eval and treat with potential continuation of PT on outpatient basis Chronic, stable conditions: -Pulmonary fibrosis / ILD / Pseudomonas colonization: Pulmicort BID, prednisone 12.5mg daily, TMP-SMX DS daily MWF, benzonatate 200mg TID prn, albuterol HFA/neb prn. 03/09/2020 CT chest with extensive changes of fibrosis & honeycombing in the lung bases favoring UIP vs fibrosing NSIP. Sputum culture revealed normal [place]. Managed by Dr. Mcginnis, pulmonology. - Chronic hypoxic respiratory failure: 4-5lpm via nasal cannula continuously. Last oxygen evaluation 03/09/2020. - Pulmonary HTN: PASP 49mmHg on 12/17/19 echo. Likely type 3. Evaluated by cardiology 12/17/19 when catheterization was declined. - GERD / Dysphagia: Pantoprazole 40mg daily. Stable. - DMT2: Metformin XR 500mg TID (hold for now), Levemir 15un daily. - HLD: Fenofibrate 145mg daily. - B12 deficiency: B12 1000mcg daily - Mg deficiency: MgOx 500mg daily. - Calcium pyrophosphate deposition disease - RA: Azathioprine 100mg BID, hydroxychloroquine 200mg daily. Managed by Dr. Giraldo, rheumatology - Compression fracture / Osteopenia of multiple sites / Chronic prednisone use: Prolia every six months and Vitamin D 2000IU daily. Previously received Reclast and Forteo. - Chronic pain due to RA, idiopathic peripheral neuropathy, and compression fracture: [place] 5/325 BID, acetaminophen 975mg between [place] doses q4h during day, gabapentin 900mg TID, Rup rub prn. Miguel knee injections on 06/09/20 without subsequent help. - Recurrent falls / Deconditioning - Depression / Anxiety: Duloxetine 60mg daily, buspirone 5mg BID. - Memory loss - Allergic rhinitis: Cetirizine 10mg daily. Stable. - Dermatitis: Triamcinolone prn. 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 Misc. Medications: Cranberry 900mg daily. Hospitalization details: # FEN: NS at 50mL/hr; electrolytes stable; ADA diet lactose free # PPX: teds # Code status: DNR/DNI, POLST signed # Emergency contact: January (daughter) updated at bedside # Disposition: home with care of family possible discharge later today (01/03/21) versus tomorrow (01/04/21) with continued observation status.
[2021-01-03] MEDS: Levofloxacin/Dextrose 5%-Water 500 MG in Premix Bag 1 BAG IV SCH (12:52)
[2021-01-03] MEDS ORDERED: Nitroglycerin 0.4 MG Tab.SL SL PRN (12:54)
[2021-01-03] MEDS ORDERED: EPINEPHrine 1:10,000 1 MG/10 ML Syringe IVPUSH PRN (12:54)
[2021-01-03] MEDS ORDERED: Atropine 0.1 MG/ML 10 ML Syringe IVPUSH PRN (12:54)
[2021-01-03] MEDS ORDERED: Lidocaine 2% 100 MG/5 ML Syringe IVPUSH PRN (12:54)
[2021-01-03] MEDS: GABAPENTIN 300 MG PO SCH ×3 (13:15→21:16)
[2021-01-03] MEDS: PREDNISONE 5 MG PO SCH (13:16)
[2021-01-03] MEDS: Cyanocobalamin (Vitamin B12) 500 MCG Tab PO SCH (13:18)
[2021-01-03] MEDS: Magnesium Oxide 500 MG Tab PO SCH (13:18)
[2021-01-03] MEDS: Levofloxacin/Dextrose 5%-Water 250 MG in Premix Bag 1 BAG IV SCH (14:07)
[2021-01-03] MEDS: LEVEMIR INSULIN SUBCUT SCH (20:15)
[2021-01-03] MEDS: CRANBERRY 900 MG PO SCH (21:17)
[2021-01-03] MEDS: HYDROXYCHLOROQUINE 200 MG PO SCH (21:17)
[2021-01-03] MEDS: FENOFIBRATE 145 MG PO SCH (21:17)
[2021-01-03] MEDS: DULOXETINE 60 MG PO SCH (21:18)
[2021-01-03] MEDS: Carvedilol 6.25 MG Tab PO SCH (21:55)
[2021-01-04] MEDS: Acetaminophen 650 MG Tab.ER PO SCH ×3 (03:09→21:11)
[2021-01-04] MEDS: Albuterol 0.083% 2.5 MG/3 ML Neb Soln INH SCH ×2 (06:33→20:45)
[2021-01-04] MEDS: BUDESONIDE 0.5 MG/2 ML INH SCH (07:29)
[2021-01-04] MEDS: Acetaminophen/HYDROcodone 325-10 MG Tab PO SCH ×3 (07:41→23:14)
[2021-01-04] MEDS: Insulin Aspart 100 Units/ML 3 ML Pen SUBCUT SCH ×4 (07:42→23:11)
--- NOTE | 2021-01-04 09:23 | PCM.PN ---
- General Info Date of Service: 01/04/21 Functional Status: Reports: Pain Controlled, Urinating, Other (aerobika for pulmonary toileting) - Review of Systems General: Reports: No Symptoms HEENT: Reports: No Symptoms Pulmonary: Reports: Shortness of Breath, Cough, Sputum. Denies: Pleuritic Chest Pain, Wheezing Cardiovascular: Reports: Dyspnea on Exertion. Denies: Chest Pain, Palpitations, Edema Gastrointestinal: Reports: No Symptoms Genitourinary: Reports: Incontinence Musculoskeletal: Reports: Back Pain (chronic) Skin: Reports: No Symptoms Neurological: Reports: Weakness Psychiatric: Reports: Confusion (intermittent) - Patient Data Vitals - Most Recent: Last Vital Signs Temp 96.0 F L 01/04/21 06:23 Pulse 91 01/04/21 07:30 Resp 24 H 01/04/21 06:23 BP 103/57 L 01/04/21 06:23 Pulse Ox 96 01/04/21 06:23 Weight - Most Recent: 120 lb I&O - Last 24 Hours: Intake & Output 01/03/21 01/04/21 01/04/21 22:59 06:59 14:59 Intake Total 1450 713 Output Total 350 250 Balance 1100 463 Lab Results Last 24 Hours: Laboratory Results - last 24 hr 01/03/21 01/03/21 01/03/21 Range/Units 07:25 11:29 17:27 POC Glucose 156 H 149 H (74-106) mg/dl Lactic Acid 1.1 (0.4-2.0) mmol/L 01/03/21 01/03/21 01/04/21 Range/Units 20:12 22:49 07:37 POC Glucose 201 H 218 H 75 (74-106) mg/dl Lactic Acid (0.4-2.0) mmol/L Faisal Results Last 24 Hours: Microbiology 01/02/21 16:10 Gram Stain - Final Sputum - Expectorated 01/02/21 08:15 Aerobic Blood Culture - Preliminary Blood - Arm, Right NO GROWTH AFTER 2 DAYS Anaerobic Blood Culture - Preliminary NO GROWTH AFTER 2 DAYS 01/02/21 08:30 Aerobic Blood Culture - Preliminary Blood - Arm, Left NO GROWTH AFTER 1 DAY Anaerobic Blood Culture - Preliminary NO GROWTH AFTER 1 DAY 01/02/21 11:00 Gram Stain - Final Wound Med Orders - Current: Current Medications Acetaminophen (Acetaminophen 650 Mg Tab.Er) 650 mg PO TID@0400,1200,2000 [facility] Last Admin: 01/04/21 03:09 Dose: 650 mg Documented by: Hydrocodone Bitart/Acetaminophen (Acetaminophen/Hydrocodone 325-10 Mg Tab) 1 tab PO 0000,0800,1600 [facility] Last Admin: 01/04/21 07:41 Dose: Not Given Documented by: Hydrocodone Bitart/Acetaminophen (Acetaminophen/Hydrocodone 325-10 Mg Tab) 1 tab PO DAILY PRN PRN Reason: PAIN Albuterol (Albuterol 0.083% 2.5 Mg/3 Ml Neb Soln) 2.5 mg INH 07,1929 [facility] Last Admin: 01/04/21 06:33 Dose: 2.5 mg Documented by: Atropine Sulfate (Atropine 0.1 Mg/Ml 10 Ml Syringe) 0 mg IVPUSH ASDIRECTED PRN PRN Reason: Heart. Budesonide (Budesonide 0.5 Mg/2 Ml Neb Susp - Ptom) 0.5 mg INH 799,1999 [facility] Last Admin: 01/04/21 07:29 Dose: 0.5 mg Documented by: Carvedilol (Carvedilol 6.25 Mg Tab) 3.125 mg PO BID [facility] Last Admin: 01/03/21 21:55 Dose: 3.125 mg Documented by: Cetirizine HCl (Cetirizine 10 Mg Tab) 10 mg PO DAILY [facility] Last Admin: 01/03/21 09:01 Dose: 10 mg Documented by: Cholecalciferol (Cholecalciferol (Vitamin D3) 25 Mcg Tab) 50 mcg PO 0900 [facility] Last Admin: 01/03/21 09:01 Dose: 50 mcg Documented by: Cyanocobalamin (Cyanocobalamin (Vitamin B12) 500 Mcg Tab) 1,000 mcg PO DAILY@1300 [facility] Last Admin: 01/03/21 13:18 Dose: 1,000 mcg Documented by: Dextrose/Water (50% Dextrose In Water 50 Ml Syringe) 50 ml IV ASDIRECTED PRN PRN Reason: Hypoglycemia Epinephrine HCl (Epinephrine 1:10,000 1 Mg/10 Ml Syringe) 1 mg IVPUSH ASDIRECTED PRN PRN Reason: Heart. Gabapentin (Gabapentin 300 Mg Cap - Ptom) 900 mg PO 1300,1700,2100 [facility] Last Admin: 01/03/21 21:16 Dose: 900 mg Documented by: Glucagon (Glucagon,Human Recombinant 1 Mg Vial) 1 mg IM ASDIRECTED PRN PRN Reason: Hypoglycemia Sodium Chloride (Normal Saline) 1,000 mls @ 50 mls/hr IV ASDIRECTED [facility] Last Admin: 01/03/21 11:30 Dose: 50 mls/hr Documented by: Levofloxacin/Dextrose 250 mg/ (Premix) 50 mls @ 100 mls/hr IV Q24H [facility] Last Admin: 01/03/21 14:07 Dose: 100 mls/hr Documented by: Levofloxacin/Dextrose 500 mg/ (Premix) 100 mls @ 100 mls/hr IV Q24H [facility] Last Admin: 01/03/21 12:52 Dose: 100 mls/hr Documented by: Insulin Aspart (Insulin Aspart 100 Units/Ml 3 Ml Pen) 0 unit SUBCUT WITHMEALSANDBED [facility]; Protocol Last Admin: 01/04/21 07:42 Dose: Not Given Documented by: Lidocaine HCl (Lidocaine 2% 100 Mg/5 Ml Syringe) 0 mg IVPUSH ASDIRECTED PRN PRN Reason: Heart. Magnesium Oxide (Magnesium Oxide 500 Mg Tab) 500 mg PO 1300 [facility] Last Admin: 01/03/21 13:18 Dose: 500 mg Documented by: Nitroglycerin (Nitroglycerin 0.4 Mg Tab.Sl) 0.4 mg SL ASDIRECTED PRN PRN Reason: Heart. Azathioprine 50 Mg (Tablet - Ptom) 100 mg PO 0900,1700 [facility] Last Admin: 01/03/21 17:18 Dose: 100 mg Documented by: Buspirone 5 Mg (Tablet - Ptom) 5 mg PO 0900,1700 [facility] Last Admin: 01/03/21 17:19 Dose: 5 mg Documented by: Cranberry 900mg (Capsule - Ptom) 900 mg PO 2100 [facility] Last Admin: 01/03/21 21:17 Dose: 900 mg Documented by: Duloxetine 60mg (Capsule - Ptom) 1 each PO 2100 [facility] Last Admin: 01/03/21 21:18 Dose: 1 each Documented by: Fenofibrate 145 Mg (Tablet - Ptom) 145 mg PO 2100 [facility] Last Admin: 01/03/21 21:17 Dose: 145 mg Documented by: Hydroxychloroquine [ Plaquenil] 200 Mg Tablet - Ptom 200 mg PO 2100 [facility] Last Admin: 01/03/21 21:17 Dose: 200 mg Documented by: Pantoprazole Dr 20mg (Tablet - Ptom) 20 mg PO DAILY [facility] Last Admin: 01/03/21 08:53 Dose: 20 mg Documented by: Levemir (Insulin Detemir) 100 Unit/Ml Insulin Pen - Ptom 18 units SUBCUT 2000 [facility] Last Admin: 01/03/21 20:15 Dose: 18 units Documented by: Benzonatate 200 Mg (Capsule - Ptom) 200 mg PO 0900,1300,1700 [facility] Last Admin: 01/03/21 17:55 Dose: 200 mg Documented by: Benzonatate 200mg (Cap - Ptom) 1 each PO 2100 PRN PRN Reason: COUGH Last Admin: 01/03/21 17:18 Dose: 1 each Documented by: Prednisone (Prednisone 5 Mg Tab - Ptom) 10 mg PO 1300 [facility] Last Admin: 01/03/21 13:16 Dose: 10 mg Documented by: Sodium Chloride (Sodium Chloride 0.9% 10 Ml Syringe) 10 ml FLUSH Q8HR PRN PRN Reason: keep vein open Last Admin: 01/02/21 13:16 Dose: 10 ml Documented by: Triamcinolone Acetonide (Triamcinolone Acetonide 0.1% Crm 15 Gm Tube) 0 gm TOP BID PRN PRN Reason: Rash Trimethoprim/Sulfamethoxazole (Sulfamethoxazole/Trimethoprim 800-160 Mg Tab - Ptom) 1 tab PO MoWeFr [facility] Last Admin: 01/02/21 17:00 Dose: 1 tab Documented by: Discontinued Medications Guaifenesin/Codeine Phosphate (Codeine/Guaifenesin 10-100 Mg/5 Ml Syrup 5 Ml Cup) 5 ml PO DAILY PRN PRN Reason: Cough Metoprolol Tartrate (Metoprolol Tartrate 5 Mg/5 Ml Sdv) 2.5 mg IVPUSH ONETIME ONE Stop: 01/02/21 09:24 Last Admin: 01/02/21 09:27 Dose: 2.5 mg Documented by: Benzonatate 100 Mg (Capsule - Ptom) 200 mg PO 0900,1200,1700 [facility] - Exam Quality Assessment: Supplemental Oxygen, DVT Prophylaxis General: Alert, Oriented (alert to self and place, time December,), Cooperative, No Acute Distress HEENT: Pupils Equal, Mucous Membr. Moist/[place] Neck: Supple Lungs: Decreased Breath Sounds, Rhonchi. No: Crackles, Wheezing Cardiovascular: Regular Rhythm, No Murmurs (HR improved since starting coreg last night 90s to low 100s ) GI/Abdominal Exam: Normal Bowel Sounds, Soft, Non-Tender, No Distention (Female) Exam: Deferred Back Exam: Normal Inspection Extremities: Normal Inspection, No Pedal Edema, Normal Capillary Refill Peripheral Pulses: 2+: Dorsalis Pedis (L), Dorsalis Pedis (R) Skin: Warm, Dry Neurological: No New Focal Deficit Psy/Mental Status: Alert, Normal Affect, Normal Mood. No: Anxious, Agitated - Patient Data Lab Results Last 24 hrs: Laboratory Results - last 24 hr 01/03/21 01/03/21 01/03/21 Range/Units 07:25 11:29 17:27 POC Glucose 156 H 149 H (74-106) mg/dl Lactic Acid 1.1 (0.4-2.0) mmol/L 01/03/21 01/03/21 01/04/21 Range/Units 20:12 22:49 07:37 POC Glucose 201 H 218 H 75 (74-106) mg/dl Lactic Acid (0.4-2.0) mmol/L Result Diagrams: 01/09/21 07:20 01/06/21 07:25 Faisal Results Last 24 hrs: Microbiology 01/02/21 16:10 Gram Stain - Final Sputum - Expectorated 01/02/21 08:15 Aerobic Blood Culture - Preliminary Blood - Arm, Right NO GROWTH AFTER 2 DAYS Anaerobic Blood Culture - Preliminary NO GROWTH AFTER 2 DAYS 01/02/21 08:30 Aerobic Blood Culture - Preliminary Blood - Arm, Left NO GROWTH AFTER 1 DAY Anaerobic Blood Culture - Preliminary NO GROWTH AFTER 1 DAY 01/02/21 11:00 Gram Stain - Final Wound Sepsis Event Note - Evaluation Sepsis Screening Result: Sepsis Risk - Focused Exam Vital Signs: Vital Signs Temp Pulse Pulse Resp BP BP Pulse Ox 01/04/21 07:30 91 01/04/21 07:10 88 01/04/21 06:23 96.0 F L 85 24 H 103/57 L 96 01/04/21 03:00 96.7 F L 95 24 H 111/72 95 01/03/21 23:05 01/03/21 22:54 96.1 F L 114 H 28 H 141/72 H 100 01/03/21 21:55 97 132/75 Pulse Ox 01/04/21 07:30 01/04/21 07:10 01/04/21 06:23 01/04/21 03:00 01/03/21 23:05 100 01/03/21 22:54 01/03/21 21:55 - Problem List Review Problem List Initiated/Reviewed/Updated: Yes - My Orders Last 24 Hours: My Active Orders 01/03/21 09:20 EKG Documentation Completion [RC] ASDIRECTED EKG 12 Lead [EK] Urgent 01/04/21 09:21 CBC WITH AUTO DIFF [HEME] Routine 01/04/21 09:22 BMP [BASIC METABOLIC PANEL,BMP] [CHEM] Routine - Plan Plan:: HPI summary: 80 year old female with known pulmonary fibrosis admitted to observation status from the [facility] ED department after presenting the AM of 01/02/2021 with increased confusion from baseline with noted weakness since one day prior to presentation. Family notes that she has had an increased cough. She did fall one day prior to presentation. It is unknown if there were inciting circumstances. Patient has fallen previously in the past. There were no known injuries from the fall. Family noted that in the morning she had increased confusion, had been incontinent of urine and was markedly weak where she was not helping with self care as usual. They brought her by private care to the hospital for evaluation. ED course: -VS: T98, P138, R33, BP 105/89, O2 sat 99% -Lab: WBC 7.43, Hgb 11.5 (baseline 12), Hct 37.9, RBC 3.68, neut 86.2, Na 139, K 4.3, Cl 96, CO2 32.2, anion gap 15.1, BUN 15, creatinine 0.43, GFR >60, gluco se 197, lactic acid 2.4, Ca 9.5, LFT nl, CK 26, Ck-Mb <0.50, Troponin <0.017, total protein 8.3, albumin 3.09; COVID negative; blood cultures x 2 obtained -Urine: >1000 glucose, 40 ketones, small bili, negative leukocyte esterase, negative nitrites, occ hyaline casts, 0-5 RBC, 5-10 WBC, few epithelial cells and few bacteria. -Meds: metoprolol tartrate 2.5mg IVP for tachycardia, brought down to 120s -NS 125mL/hr -EKG: NSR, rate 141, p waves present, St-T wave depression -CXR: extensive bilateral infiltrates, apparently this is related to fibrosis, question of bilateral hilar adenopathy -CT head: No acute process -Admit obs/tele Hospital course: 01/02/2021: Patient in bed with daughter (Chasity) and son (Aquiles) present. She offers no complaints at this time. Nursing reports temp has gone up to 100.1 and patient is diaphoretic. Added procalcitonin, CRP (>11), magnesium (1.8) to labs. Patient is more short of breath and family reports she has been coughing more in the last 24-48 hours. Nursing reports sats had dipped to 70s and patient's oxygen had to be increased to 5L to maintain sat of 90%. Patient will be started on empiric antibiotic treatment at this time. Patient is immunocompromised and has risk factors for BRIGIDO, will be placed on levofloxacin 750mg daily IV and plan for de-escalation depending on response and cultures. 01/03/21: Cognitive status improved this morning, patient A/O x3. Afebrile, tachycardic this morning with heart rate 130s to 140s after nebulizer treatment; mildy diaphoretic. This improved to 120s without intervention. Denies chest pain. Repeat EKG indicates sinus tach with PACs. HR 128, [place] 174ms, QRS 82ms, QTc 481. Trops negative x 2 yesterday. BC x2 NGTD. Patient at baseline respiratory status at 5L NC, denies dyspnea. Continues to have minimally productive cough. Lactic acid down to 1.1 today. Mild weakness persists, nursing will assist patient to increase physical activity today to determine readiness for discharge home. Daughter, January at bedside this morning. States patient typically uses a walker at home. She offers concerns regarding her mother's depression when no family is present while hospitalized. Patient ambulating with walker and gait belt, minimal assist. Will plan to continue antibiotics upon discharge due to neutrophilia and known pulmonary disease. 01/04/21: Patient had an episode last evening of suspected mucous plugging of the airway with significant decrease in oxygen saturation in the 70's at rest and cyanosis. RN utilized oropharyngeal suctioning and removed the mucous plug from the airway with improvement. Patient experiencing significant hypoxia with minimal activity and increased weakness. Cough with increased sputum productivity. Low dose coreg 3.125mg BID started last night with improvement in heart rate to the 90s to low 100s as compared to 120s yesterday. Blood pressure stable. Patient remains afebrile. BC NGTD x2 days. Preliminary sput um gram stain indicates few gm - bacilli and rare PMN, final culture pending. Due to acute on chronic hypoxic respiratory failure and increased weakness, will change patient to inpatient status. Physical therapy eval and tx ordered this morning. Will continue IV levaquin as final respiratory culture in process. Daughter and son talking with social work this morning to determine possible discharge plans. Considering short swing bed stay if needed following inpatient stay if needed for additional therapy versus possible discharge to residential facility if patient's status does not return to prior baseline at home. Patient typically home during the day by herself much of the day prior to this admission. D/C'd telemetry. Saline locked as patient drinking adequate oral fluids. Hospitalization problems and plan: # Tachycardia; improving. - EKG 01/03/21 with sinus tach, PACs. HR consistently 120s on Saturday. Baseline HR during recent clinic visits in low 100s. - Started Coreg 3.125mg PO BID with improvement of heart rate to 90s-100s. # Acute on chronic hypoxic respiratory failure with underlying severe pulmonary fibrosis -O2 to keep sat >90%, required increased O2 last night. O2 sat decreased with minimal activity into the 70's -Episode of cyanosis related to suspected mucous plugging -4-5L by nasal cannula at baseline at home # Bilateral lobe pneumonia - known colonization of pseudomonas -Final culture pending, prelim indicates few gm - bacilli, rare PMN -Continue levofloxacin 750mg IV daily, add cefepime 2g Q8H today for broader spectrum coverage given known pseudomonas colonization per Dr Joni Alcantara. -Continue bactrim three times weekly for prophylaxis # Clinical dehydration -Resolved. IV saline locked, encourage oral fluids. -Repeat BMP this am. # Elevated lactic acid; resolved. -lactic acid 1.1 (01/03/21) -Blood cultures x2 - NGTD x 2 days -procalcitonin 0.55 -Repeat CBC this am # Hypokalemia, mild. - K 3.4 today, 20 mEQ KCl supplementation x 1. - Repeat bmp in am. Chronic, stable conditions: -Pulmonary fibrosis / ILD / Pseudomonas colonization: Pulmicort BID, prednisone 12.5mg daily, TMP-SMX DS daily MWF, benzonatate 200mg TID prn, albuterol HFA/neb prn. 03/09/2020 CT chest with extensive changes of fibrosis & honeycombing in the lung bases favoring UIP vs fibrosing NSIP. Sputum culture revealed normal [place]. Managed by Dr. Mcginnis, pulmonology. - Chronic hypoxic respiratory failure: 4-5lpm via nasal cannula continuously. Last oxygen evaluation 03/09/2020. - Pulmonary HTN: PASP 49mmHg on 12/17/19 echo. Likely type 3. Evaluated by cardiology 12/17/19 when catheterization was declined. - GERD / Dysphagia: Pantoprazole 40mg daily. Stable. - DMT2: Metformin XR 500mg TID (hold for now), Levemir 15un daily. - HLD: Fenofibrate 145mg daily. - B12 deficiency: takes B12 1000mcg daily - Mg deficiency: takes MgOx 500mg daily. - Calcium pyrophosphate deposition disease - RA: Azathioprine 100mg BID, hydroxychloroquine 200mg daily. Managed by Dr. Giraldo, rheumatology - Compression fracture / Osteopenia of multiple sites / Chronic prednisone use: Prolia every six months and Vitamin D 2000IU daily. Previously received Reclast and Forteo. - Chronic pain due to RA, idiopathic peripheral neuropathy, and compression fracture: [place] 5/325 BID, acetaminophen 975mg between [place] doses q4h during day, gabapentin 900mg TID, Rup rub prn. Miguel knee injections on 06/09/20 without subsequent help. - Recurrent falls / Deconditioning - Depression/Anxiety: takes Duloxetine 60mg daily, buspirone 5mg BID. - Memory loss - Allergic rhinitis: takes Cetirizine 10mg daily. Stable. - Dermatitis: Triamcinolone prn. 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 Misc. Medications: Cranberry 900mg daily. Hospitalization details: # FEN: NS at 50mL/hr; electrolytes stable; ADA diet lactose free # PPX: teds # Code status: DNR/DNI, POLST signed # Emergency contact: January (daughter) updated at bedside # Disposition: Status changed to inpatient today due to increased oxygen demands and episodes of decreased oxygen saturation with minimal activity from prior baseline and episode of cyanosis related to mucous plugging as well as increased weakness. Anticipate > 2 midnights stay for respiratory suctioning and oxygen monitoring.
[2021-01-04] MEDS: Cholecalciferol (Vitamin D3) 25 MCG Tab PO SCH (09:29)
[2021-01-04] MEDS: Carvedilol 6.25 MG Tab PO SCH ×2 (09:31→21:09)
[2021-01-04] MEDS: Cetirizine 10 MG Tab PO SCH (09:35)
[2021-01-04] MEDS: AZATHIOPRINE 50 MG PO SCH ×2 (09:36→17:45)
[2021-01-04] MEDS: PANTOPRAZOLE 20 MG PO SCH (09:37)
[2021-01-04] MEDS: BUSPIRONE 5 MG PO SCH (09:37)
[2021-01-04] MEDS: BENZONATATE 200 MG PO SCH ×2 (09:38→19:09)
[2021-01-04] MEDS: Sodium Chloride 0.9% 1,000 ML IV SCH (09:39)
[2021-01-04 10:12] LABS: CHLORIDE,CL 98 mmol/L (98-107); SODIUM,NA 137 mmol/L (136-145)
[2021-01-04] MEDS ORDERED: Acetaminophen/HYDROcodone 325-10 MG Tab PO PRN (13:15)
[2021-01-04] MEDS ORDERED: Potassium Chloride 20 MEQ Tab.ER PO ONE (13:20)
[2021-01-04] MEDS: Benzonatate 100 MG Cap PO PRN (13:47)
[2021-01-04] MEDS: predniSONE 10 MG Tab PO SCH (13:47)
[2021-01-04] MEDS: Magnesium Oxide 500 MG Tab PO SCH (13:48)
[2021-01-04] MEDS: Cyanocobalamin (Vitamin B12) 500 MCG Tab PO SCH (13:48)
[2021-01-04] MEDS: Gabapentin 300 MG Cap PO SCH ×3 (13:48→21:13)
[2021-01-04] MEDS: Levofloxacin/Dextrose 5%-Water 500 MG in Premix Bag 1 BAG IV SCH (13:49)
[2021-01-04] MEDS: Benzonatate 100 MG Cap PO SCH ×2 (13:49→17:44)
[2021-01-04] MEDS: Levofloxacin/Dextrose 5%-Water 250 MG in Premix Bag 1 BAG IV SCH (14:40)
[2021-01-04] MEDS: Cefepime 2 GM in Sodium Chloride 0.9% 50 ML IV SCH ×2 (15:51→23:07)
[2021-01-04] MEDS ORDERED: Sulfamethoxazole/Trimethoprim 800-160 MG Tab PO SCH (17:00)
[2021-01-04] MEDS: busPIRone 10 MG Tab PO SCH (17:41)
[2021-01-04] MEDS ORDERED: Cefepime 2 GM in Sodium Chloride 0.9% 50 ML IV SCH (18:00)
[2021-01-04] MEDS: GABAPENTIN 300 MG PO SCH (19:09)
[2021-01-04] MEDS: PREDNISONE 5 MG PO SCH (19:09)
[2021-01-04] MEDS: Budesonide 0.5 MG/2 ML Neb Susp INH SCH (21:00)
[2021-01-04] MEDS: LEVEMIR INSULIN SUBCUT SCH (21:04)
[2021-01-04] MEDS: Hydroxychloroquine 200 MG Tab PO SCH (21:09)
[2021-01-04] MEDS: DULoxetine 30 MG Cap PO SCH (21:12)
[2021-01-04] MEDS: FENOFIBRATE 145 MG PO SCH (21:14)
[2021-01-04] MEDS: CRANBERRY 900 MG PO SCH (21:15)
[2021-01-05] MEDS: Acetaminophen 650 MG Tab.ER PO SCH ×3 (03:31→20:48)
[2021-01-05] MEDS: Omeprazole 20 MG Cap.CR PO SCH ×2 (06:27→06:37)
[2021-01-05] MEDS: Cefepime 2 GM in Sodium Chloride 0.9% 50 ML IV SCH ×3 (06:27→22:53)
[2021-01-05] MEDS: Albuterol 0.083% 2.5 MG/3 ML Neb Soln INH SCH ×3 (06:28→21:00)
[2021-01-05] MEDS: Insulin Aspart 100 Units/ML 3 ML Pen SUBCUT SCH ×4 (07:46→23:06)
[2021-01-05] MEDS: Cholecalciferol (Vitamin D3) 25 MCG Tab PO SCH (08:01)
[2021-01-05] MEDS: Acetaminophen/HYDROcodone 325-10 MG Tab PO SCH ×3 (08:01→23:12)
[2021-01-05 08:04] LABS: ANION GAP 8.9 mmol/L (5-15); CHLORIDE,CL 98 mmol/L (98-107); SODIUM,NA 136 mmol/L (136-145)
[2021-01-05] MEDS: Cetirizine 10 MG Tab PO SCH (08:04)
[2021-01-05] MEDS: AZATHIOPRINE 50 MG PO SCH ×2 (08:06→17:26)
[2021-01-05] MEDS: Carvedilol 6.25 MG Tab PO SCH ×2 (08:08→20:50)
[2021-01-05] MEDS: Budesonide 0.5 MG/2 ML Neb Susp INH SCH ×2 (08:12→21:06)
[2021-01-05] MEDS: Benzonatate 100 MG Cap PO SCH ×3 (08:12→17:23)
[2021-01-05] MEDS: busPIRone 10 MG Tab PO SCH ×2 (08:15→17:23)
--- NOTE | 2021-01-05 10:23 | PCM.PN ---
- General Info Date of Service: 01/05/21 Functional Status: Reports: Pain Controlled, Tolerating Diet, Urinating. Denies: Ambulating - Review of Systems General: Reports: Weakness, Fatigue. Denies: Fever, Chills, Night Sweats Pulmonary: Reports: Shortness of Breath, Wheezing. Denies: Cough, Sputum Cardiovascular: Reports: Dyspnea on Exertion. Denies: Chest Pain, Palpitations, Orthopnea, PND Gastrointestinal: Reports: Other (heartburn last night) Skin: Reports: Pallor Neurological: Reports: Weakness. Denies: Confusion - Patient Data Vitals - Most Recent: Last Vital Signs Temp 96.2 F L 01/05/21 06:40 Pulse 89 01/05/21 08:12 Resp 20 01/05/21 06:40 BP 121/71 01/05/21 08:08 Pulse Ox 97 01/05/21 08:12 Weight - Most Recent: 120 lb I&O - Last 24 Hours: Intake & Output 01/04/21 01/05/21 01/05/21 22:59 06:59 14:59 Intake Total 850 195 Output Total 450 250 Balance 400 -55 Lab Results Last 24 Hours: Laboratory Results - last 24 hr 01/04/21 01/04/21 01/04/21 Range/Units 09:45 09:45 12:02 WBC 5.53 (5.00-10.00) 10^3/uL RBC 3.16 L (3.80-5.50) 10^6/uL Hgb 9.8 L (12.0-16.0) g/dL Hct 32.4 L (37.0-47.0) % MCV 102.5 H (82.0-92.0) fL MCH 31.0 (27.0-31.0) pg MCHC 30.2 L (32.0-36.0) g/dL RDW 15.3 H (11.5-14.5) % Plt Count 267 (150-400) 10^3/uL MPV 8.2 (7.4-10.4) fL Immature Gran % (Auto) 0.5 (0.0-5.0) % Neut % (Auto) 87.2 H (50.0-70.0) % Lymph % (Auto) 4.0 L (20.0-40.0) % [place] % (Auto) 8.3 H (2.0-8.0) % Eos % (Auto) 0.0 L (1.0-3.0) % Baso % (Auto) 0.0 (0.0-1.0) % Neut # (Auto) 4.82 (2.50-7.00) 10^3/uL Lymph # (Auto) 0.22 L (1.00-4.00) 10^3/uL [place] # (Auto) 0.46 (0.10-0.80) 10^3/uL Eos # (Auto) 0.00 L (0.10-0.30) 10^3/uL Baso # (Auto) 0.00 (0.00-0.10) 10^3/uL Immature Gran # (Auto) 0.03 (0.00-0.50) 10^3/uL Sodium 137 (136-145) mmol/L Potassium 3.4 L (3.5-5.1) mmol/L Chloride 98 (98-107) mmol/L Carbon Dioxide 32.4 H (21.0-32.0) mmol/L Anion Gap 10.0 (5-15) mmol/L BUN 9 (7-18) mg/dL Creatinine 0.34 L (0.51-1.17) mg/dL Est Cr Clr Drug Dosing 110.99 mL/min Estimated GFR (MDRD) > 60 mL/min Glucose 162 H (70-140) mg/dL POC Glucose 160 H (74-106) mg/dl Calcium 8.8 (8.7-10.3) mg/dL 01/04/21 01/04/21 01/04/21 Range/Units 17:50 21:03 22:56 WBC (5.00-10.00) 10^3/uL RBC (3.80-5.50) 10^6/uL Hgb (12.0-16.0) g/dL Hct (37.0-47.0) % MCV (82.0-92.0) fL MCH (27.0-31.0) pg MCHC (32.0-36.0) g/dL RDW (11.5-14.5) % Plt Count (150-400) 10^3/uL MPV (7.4-10.4) fL Immature Gran % (Auto) (0.0-5.0) % Neut % (Auto) (50.0-70.0) % Lymph % (Auto) (20.0-40.0) % [place] % (Auto) (2.0-8.0) % Eos % (Auto) (1.0-3.0) % Baso % (Auto) (0.0-1.0) % Neut # (Auto) (2.50-7.00) 10^3/uL Lymph # (Auto) (1.00-4.00) 10^3/uL [place] # (Auto) (0.10-0.80) 10^3/uL Eos # (Auto) (0.10-0.30) 10^3/uL Baso # (Auto) (0.00-0.10) 10^3/uL Immature Gran # (Auto) (0.00-0.50) 10^3/uL Sodium (136-145) mmol/L Potassium (3.5-5.1) mmol/L Chloride (98-107) mmol/L Carbon Dioxide (21.0-32.0) mmol/L Anion Gap (5-15) mmol/L BUN (7-18) mg/dL Creatinine (0.51-1.17) mg/dL Est Cr Clr Drug Dosing mL/min Estimated GFR (MDRD) mL/min Glucose (70-140) mg/dL POC Glucose 145 H 268 H 214 H (74-106) mg/dl Calcium (8.7-10.3) mg/dL 01/05/21 01/05/21 01/05/21 Range/Units 07:25 07:25 07:34 WBC 6.29 (5.00-10.00) 10^3/uL RBC 2.86 L (3.80-5.50) 10^6/uL Hgb 9.0 L (12.0-16.0) g/dL Hct 29.4 L (37.0-47.0) % MCV 102.8 H (82.0-92.0) fL MCH 31.5 H (27.0-31.0) pg MCHC 30.6 L (32.0-36.0) g/dL RDW 15.1 H (11.5-14.5) % Plt Count 267 (150-400) 10^3/uL MPV 8.3 (7.4-10.4) fL Immature Gran % (Auto) 0.8 (0.0-5.0) % Neut % (Auto) 77.3 H (50.0-70.0) % Lymph % (Auto) 6.4 L (20.0-40.0) % [place] % (Auto) 15.3 H (2.0-8.0) % Eos % (Auto) 0.2 L (1.0-3.0) % Baso % (Auto) 0.0 (0.0-1.0) % Neut # (Auto) 4.87 (2.50-7.00) 10^3/uL Lymph # (Auto) 0.40 L (1.00-4.00) 10^3/uL [place] # (Auto) 0.96 H (0.10-0.80) 10^3/uL Eos # (Auto) 0.01 L (0.10-0.30) 10^3/uL Baso # (Auto) 0.00 (0.00-0.10) 10^3/uL Immature Gran # (Auto) 0.05 (0.00-0.50) 10^3/uL Sodium 136 (136-145) mmol/L Potassium 4.2 (3.5-5.1) mmol/L Chloride 98 (98-107) mmol/L Carbon Dioxide 33.3 H (21.0-32.0) mmol/L Anion Gap 8.9 (5-15) mmol/L BUN 9 (7-18) mg/dL Creatinine 0.28 L (0.51-1.17) mg/dL Est Cr Clr Drug Dosing 134.77 mL/min Estimated GFR (MDRD) > 60 mL/min Glucose 67 L (70-140) mg/dL POC Glucose 78 (74-106) mg/dl Calcium 8.5 L (8.7-10.3) mg/dL Faisal Results Last 24 Hours: Microbiology 01/02/21 08:30 Aerobic Blood Culture - Preliminary Blood - Arm, Left NO GROWTH AFTER 3 DAYS Anaerobic Blood Culture - Preliminary NO GROWTH AFTER 3 DAYS 01/02/21 08:15 Aerobic Blood Culture - Preliminary Blood - Arm, Right NO GROWTH AFTER 3 DAYS Anaerobic Blood Culture - Preliminary NO GROWTH AFTER 3 DAYS 01/02/21 16:10 Respiratory Culture - Preliminary Sputum - Expectorated Gram Stain - Final 01/02/21 11:00 Miscellaneous Reference Culture - Preliminary Wound Gram Stain - Final Med Orders - Current: Current Medications Acetaminophen (Acetaminophen 650 Mg Tab.Er) 650 mg PO TID@0400,1200,2000 [facility] Last Admin: 01/05/21 03:31 Dose: 650 mg Documented by: Hydrocodone Bitart/Acetaminophen (Acetaminophen/Hydrocodone 325-10 Mg Tab) 1 tab PO 0000,0800,1600 [facility] Last Admin: 01/05/21 08:01 Dose: 1 tab Documented by: Hydrocodone Bitart/Acetaminophen (Acetaminophen/Hydrocodone 325-10 Mg Tab) 1 tab PO DAILY PRN PRN Reason: PAIN Albuterol (Albuterol 0.083% 2.5 Mg/3 Ml Neb Soln) 2.5 mg INH 0730,1930 [facility] Last Admin: 01/05/21 06:37 Dose: Not Given Documented by: Benzonatate (Benzonatate 100 Mg Cap) 200 mg PO 0900,1300,1700 [facility] Last Admin: 01/05/21 08:12 Dose: 200 mg Documented by: Benzonatate (Benzonatate 100 Mg Cap) 200 mg PO 2100 PRN PRN Reason: COUGH Last Admin: 01/04/21 13:47 Dose: 200 mg Documented by: Budesonide (Budesonide 0.5 Mg/2 Ml Neb Susp) 0.5 mg INH 0800,2000 [facility] Last Admin: 01/05/21 08:12 Dose: 0.5 mg Documented by: Buspirone HCl (Buspirone 10 Mg Tab) 5 mg PO 0900,1700 [facility] Last Admin: 01/05/21 08:15 Dose: 5 mg Documented by: Carvedilol (Carvedilol 6.25 Mg Tab) 3.125 mg PO BID [facility] Last Admin: 01/05/21 08:08 Dose: 3.125 mg Documented by: Cetirizine HCl (Cetirizine 10 Mg Tab) 10 mg PO DAILY [facility] Last Admin: 01/05/21 08:04 Dose: 10 mg Documented by: Cholecalciferol (Cholecalciferol (Vitamin D3) 25 Mcg Tab) 50 mcg PO 0900 [facility] Last Admin: 01/05/21 08:01 Dose: 50 mcg Documented by: Cyanocobalamin (Cyanocobalamin (Vitamin B12) 500 Mcg Tab) 1,000 mcg PO DAILY@1300 [facility] Last Admin: 01/04/21 13:48 Dose: 1,000 mcg Documented by: Dextrose/Water (50% Dextrose In Water 50 Ml Syringe) 50 ml IV ASDIRECTED PRN PRN Reason: Hypoglycemia Duloxetine HCl (Duloxetine 30 Mg Cap) 60 mg PO 2100 [facility] Last Admin: 01/04/21 21:12 Dose: 60 mg Documented by: Gabapentin (Gabapentin 300 Mg Cap) 900 mg PO 1300,1700,2100 [facility] Last Admin: 01/04/21 21:13 Dose: 900 mg Documented by: Glucagon (Glucagon,Human Recombinant 1 Mg Vial) 1 mg IM ASDIRECTED PRN PRN Reason: Hypoglycemia Hydroxychloroquine Sulfate (Hydroxychloroquine 200 Mg Tab) 200 mg PO 2100 [facility] Last Admin: 01/04/21 21:09 Dose: 200 mg Documented by: Levofloxacin/Dextrose 250 mg/ (Premix) 50 mls @ 100 mls/hr IV Q24H [facility] Last Admin: 01/04/21 14:40 Dose: 100 mls/hr Documented by: Levofloxacin/Dextrose 500 mg/ (Premix) 100 mls @ 100 mls/hr IV Q24H [facility] Last Admin: 01/04/21 13:49 Dose: 100 mls/hr Documented by: Sodium Chloride (Normal Saline) 250 mls @ 25 mls/hr IV ASDIRECTED PRN PRN Reason: FLUSH BAG Cefepime HCl 2 gm/ Sodium (Chloride) 50 mls @ 100 mls/hr IV Q8H [facility] Last Admin: 01/05/21 06:27 Dose: 100 mls/hr Documented by: Insulin Aspart (Insulin Aspart 100 Units/Ml 3 Ml Pen) 0 unit SUBCUT WITHMEALSANDBED [facility]; Protocol Last Admin: 01/05/21 07:46 Dose: Not Given Documented by: Magnesium Oxide (Magnesium Oxide 500 Mg Tab) 500 mg PO 1300 [facility] Last Admin: 01/04/21 13:48 Dose: 500 mg Documented by: Azathioprine 50 Mg (Tablet - Ptom) 100 mg PO 0900,1700 [facility] Last Admin: 01/05/21 08:06 Dose: 100 mg Documented by: Cranberry 900mg (Capsule - Ptom) 900 mg PO 2100 [facility] Last Admin: 01/04/21 21:15 Dose: 900 mg Documented by: Fenofibrate 145 Mg (Tablet - Ptom) 145 mg PO 2100 [facility] Last Admin: 01/04/21 21:14 Dose: 145 mg Documented by: Levemir (Insulin Detemir) 100 Unit/Ml Insulin Pen - Ptom 18 units SUBCUT 2000 S Last Admin: 01/04/21 21:04 Dose: 18 units Documented by: Omeprazole (Omeprazole 20 Mg Cap.Cr) 20 mg PO ACBREAKFAST [facility] Last Admin: 01/05/21 06:37 Dose: Not Given Documented by: Prednisone (Prednisone 10 Mg Tab) 10 mg PO 1300 [facility] Last Admin: 01/04/21 13:47 Dose: 10 mg Documented by: Sodium Chloride (Sodium Chloride 0.9% 10 Ml Syringe) 10 ml FLUSH Q8HR PRN PRN Reason: keep vein open Last Admin: 01/02/21 13:16 Dose: 10 ml Documented by: Triamcinolone Acetonide (Triamcinolone Acetonide 0.1% Crm 15 Gm Tube) 0 gm TOP BID PRN PRN Reason: Rash Trimethoprim/Sulfamethoxazole (Sulfamethoxazole/Trimethoprim 800-160 Mg Tab) 1 tab PO MoWeFr@1700 [facility] Last Admin: 01/04/21 17:40 Dose: 1 tab Documented by: Discontinued Medications Hydrocodone Bitart/Acetaminophen (Acetaminophen/Hydrocodone 325-10 Mg Tab) 1 tab PO 0000,0800,1600 [facility] Last Admin: 01/04/21 07:41 Dose: Not Given Documented by: Hydrocodone Bitart/Acetaminophen (Acetaminophen/Hydrocodone 325-10 Mg Tab) 1 t ab PO DAILY PRN PRN Reason: PAIN Albuterol (Albuterol 0.083% 2.5 Mg/3 Ml Neb Soln) 2.5 mg INH 0730,1930 [facility] Last Admin: 01/04/21 06:33 Dose: 2.5 mg Documented by: Atropine Sulfate (Atropine 0.1 Mg/Ml 10 Ml Syringe) 0 mg IVPUSH ASDIRECTED PRN PRN Reason: Heart. Budesonide (Budesonide 0.5 Mg/2 Ml Neb Susp - Ptom) 0.5 mg INH 0800,2000 [facility] Last Admin: 01/04/21 07:29 Dose: 0.5 mg Documented by: Epinephrine HCl (Epinephrine 1:10,000 1 Mg/10 Ml Syringe) 1 mg IVPUSH ASDIRECTED PRN PRN Reason: Heart. Gabapentin (Gabapentin 300 Mg Cap - Ptom) 900 mg PO 1300,1700,2100 [facility] Last Admin: 01/04/21 19:09 Dose: Not Given Documented by: Guaifenesin/Codeine Phosphate (Codeine/Guaifenesin 10-100 Mg/5 Ml Syrup 5 Ml Cup) 5 ml PO DAILY PRN PRN Reason: Cough Sodium Chloride (Normal Saline) 1,000 mls @ 50 mls/hr IV ASDIRECTED [facility] Last Admin: 01/04/21 09:39 Dose: 50 mls/hr Documented by: Cefepime HCl 2 gm/ Sodium (Chloride) 50 mls @ 100 mls/hr IV Q12H [facility] Lidocaine HCl (Lidocaine 2% 100 Mg/5 Ml Syringe) 0 mg IVPUSH ASDIRECTED PRN PRN Reason: Heart. Metoprolol Tartrate (Metoprolol Tartrate 5 Mg/5 Ml Sdv) 2.5 mg IVPUSH ONETIME ONE Stop: 01/02/21 09:24 Last Admin: 01/02/21 09:27 Dose: 2.5 mg Documented by: Nitroglycerin (Nitroglycerin 0.4 Mg Tab.Sl) 0.4 mg SL ASDIRECTED PRN PRN Reason: Heart. Benzonatate 100 Mg (Capsule - Ptom) 200 mg PO 0900,1200,1700 [facility] Buspirone 5 Mg (Tablet - Ptom) 5 mg PO 0900,1700 [facility] Last Admin: 01/04/21 09:37 Dose: 5 mg Documented by: Duloxetine 60mg (Capsule - Ptom) 1 each PO 2100 [facility] Last Admin: 01/03/21 21:18 Dose: 1 each Documented by: Hydroxychloroquine [ Plaquenil] 200 Mg Tablet - Ptom 200 mg PO 2100 [facility] Last Admin: 01/03/21 21:17 Dose: 200 mg Documented by: Pantoprazole Dr 20mg (Tablet - Ptom) 20 mg PO DAILY [facility] Last Admin: 01/04/21 09:37 Dose: 20 mg Documented by: Benzonatate 200 Mg (Capsule - Ptom) 200 mg PO 0900,1300,1700 [facility] Last Admin: 01/04/21 19:09 Dose: Not Given Documented by: Benzonatate 200mg (Cap - Ptom) 1 each PO 2100 PRN PRN Reason: COUGH Last Admin: 01/03/21 17:18 Dose: 1 each Documented by: Potassium Chloride (Potassium Chloride 20 Meq Tab.Er) 20 meq PO ONETIME ONE Stop: 01/04/21 13:21 Last Admin: 01/04/21 13:47 Dose: 20 meq Documented by: Prednisone (Prednisone 5 Mg Tab - Ptom) 10 mg PO 1300 [facility] Last Admin: 01/04/21 19:09 Dose: Not Given Documented by: Trimethoprim/Sulfamethoxazole (Sulfamethoxazole/Trimethoprim 800-160 Mg Tab - Ptom) 1 tab PO MoWeFr [facility] Last Admin: 01/02/21 17:00 Dose: 1 tab Documented by: - Exam Quality Assessment: Supplemental Oxygen (5 liters/min) General: No Acute Distress Lungs: Rales, Rhonchi. No: Crackles Cardiovascular: Regular Rate, Regular Rhythm. No: Tachycardia GI/Abdominal Exam: Soft, Other (slightly low bowel tones). No: Abnormal Bowel Sounds Back Exam: No: CVA Tenderness (L), CVA Tenderness (R) Extremities: No Pedal Edema Skin: Warm, Dry, Intact - Patient Data Lab Results Last 24 hrs: Laboratory Results - last 24 hr 01/04/21 01/04/21 01/04/21 Range/Units 09:45 09:45 12:02 WBC 5.53 (5.00-10.00) 10^3/uL RBC 3.16 L (3.80-5.50) 10^6/uL Hgb 9.8 L (12.0-16.0) g/dL Hct 32.4 L (37.0-47.0) % MCV 102.5 H (82.0-92.0) fL MCH 31.0 (27.0-31.0) pg MCHC 30.2 L (32.0-36.0) g/dL RDW 15.3 H (11.5-14.5) % Plt Count 267 (150-400) 10^3/uL MPV 8.2 (7.4-10.4) fL Immature Gran % (Auto) 0.5 (0.0-5.0) % Neut % (Auto) 87.2 H (50.0-70.0) % Lymph % (Auto) 4.0 L (20.0-40.0) % [place] % (Auto) 8.3 H (2.0-8.0) % Eos % (Auto) 0.0 L (1.0-3.0) % Baso % (Auto) 0.0 (0.0-1.0) % Neut # (Auto) 4.82 (2.50-7.00) 10^3/uL Lymph # (Auto) 0.22 L (1.00-4.00) 10^3/uL [place] # (Auto) 0.46 (0.10-0.80) 10^3/uL Eos # (Auto) 0.00 L (0.10-0.30) 10^3/uL Baso # (Auto) 0.00 (0.00-0.10) 10^3/uL Immature Gran # (Auto) 0.03 (0.00-0.50) 10^3/uL Sodium 137 (136-145) mmol/L Potassium 3.4 L (3.5-5.1) mmol/L Chloride 98 (98-107) mmol/L Carbon Dioxide 32.4 H (21.0-32.0) mmol/L Anion Gap 10.0 (5-15) mmol/L BUN 9 (7-18) mg/dL Creatinine 0.34 L (0.51-1.17) mg/dL Est Cr Clr Drug Dosing 110.99 mL/min Estimated GFR (MDRD) > 60 mL/min Glucose 162 H (70-140) mg/dL POC Glucose 160 H (74-106) mg/dl Calcium 8.8 (8.7-10.3) mg/dL 01/04/21 01/04/21 01/04/21 Range/Units 17:50 21:03 22:56 WBC (5.00-10.00) 10^3/uL RBC (3.80-5.50) 10^6/uL Hgb (12.0-16.0) g/dL Hct (37.0-47.0) % MCV (82.0-92.0) fL MCH (27.0-31.0) pg MCHC (32.0-36.0) g/dL RDW (11.5-14.5) % Plt Count (150-400) 10^3/uL MPV (7.4-10.4) fL Immature Gran % (Auto) (0.0-5.0) % Neut % (Auto) (50.0-70.0) % Lymph % (Auto) (20.0-40.0) % [place] % (Auto) (2.0-8.0) % Eos % (Auto) (1.0-3.0) % Baso % (Auto) (0.0-1.0) % Neut # (Auto) (2.50-7.00) 10^3/uL Lymph # (Auto) (1.00-4.00) 10^3/uL [place] # (Auto) (0.10-0.80) 10^3/uL Eos # (Auto) (0.10-0.30) 10^3/uL Baso # (Auto) (0.00-0.10) 10^3/uL Immature Gran # (Auto) (0.00-0.50) 10^3/uL Sodium (136-145) mmol/L Potassium (3.5-5.1) mmol/L Chloride (98-107) mmol/L Carbon Dioxide (21.0-32.0) mmol/L Anion Gap (5-15) mmol/L BUN (7-18) mg/dL Creatinine (0.51-1.17) mg/dL Est Cr Clr Drug Dosing mL/min Estimated GFR (MDRD) mL/min Glucose (70-140) mg/dL POC Glucose 145 H 268 H 214 H (74-106) mg/dl Calcium (8.7-10.3) mg/dL 01/05/21 01/05/21 01/05/21 Range/Units 07:25 07:25 07:34 WBC 6.29 (5.00-10.00) 10^3/uL RBC 2.86 L (3.80-5.50) 10^6/uL Hgb 9.0 L (12.0-16.0) g/dL Hct 29.4 L (37.0-47.0) % MCV 102.8 H (82.0-92.0) fL MCH 31.5 H (27.0-31.0) pg MCHC 30.6 L (32.0-36.0) g/dL RDW 15.1 H (11.5-14.5) % Plt Count 267 (150-400) 10^3/uL MPV 8.3 (7.4-10.4) fL Immature Gran % (Auto) 0.8 (0.0-5.0) % Neut % (Auto) 77.3 H (50.0-70.0) % Lymph % (Auto) 6.4 L (20.0-40.0) % [place] % (Auto) 15.3 H (2.0-8.0) % Eos % (Auto) 0.2 L (1.0-3.0) % Baso % (Auto) 0.0 (0.0-1.0) % Neut # (Auto) 4.87 (2.50-7.00) 10^3/uL Lymph # (Auto) 0.40 L (1.00-4.00) 10^3/uL [place] # (Auto) 0.96 H (0.10-0.80) 10^3/uL Eos # (Auto) 0.01 L (0.10-0.30) 10^3/uL Baso # (Auto) 0.00 (0.00-0.10) 10^3/uL Immature Gran # (Auto) 0.05 (0.00-0.50) 10^3/uL Sodium 136 (136-145) mmol/L Potassium 4.2 (3.5-5.1) mmol/L Chloride 98 (98-107) mmol/L Carbon Dioxide 33.3 H (21.0-32.0) mmol/L Anion Gap 8.9 (5-15) mmol/L BUN 9 (7-18) mg/dL Creatinine 0.28 L (0.51-1.17) mg/dL Est Cr Clr Drug Dosing 134.77 mL/min Estimated GFR (MDRD) > 60 mL/min Glucose 67 L (70-140) mg/dL POC Glucose 78 (74-106) mg/dl Calcium 8.5 L (8.7-10.3) mg/dL Result Diagrams: 01/05/21 07:25 01/05/21 07:25 Faisal Results Last 24 hrs: Microbiology 01/02/21 08:30 Aerobic Blood Culture - Preliminary Blood - Arm, Left NO GROWTH AFTER 3 DAYS Anaerobic Blood Culture - Preliminary NO GROWTH AFTER 3 DAYS 01/02/21 08:15 Aerobic Blood Culture - Preliminary Blood - Arm, Right NO GROWTH AFTER 3 DAYS Anaerobic Blood Culture - Preliminary NO GROWTH AFTER 3 DAYS 01/02/21 16:10 Respiratory Culture - Preliminary Sputum - Expectorated Gram Stain - Final 01/02/21 11:00 Miscellaneous Reference Culture - Preliminary Wound Gram Stain - Final Sepsis Event Note - Evaluation Sepsis Screening Result: Sepsis Risk - Focused Exam Vital Signs: Vital Signs Temp Pulse Pulse Resp BP BP Pulse Ox 01/05/21 08:12 89 01/05/21 08:08 88 121/71 01/05/21 06:45 85 01/05/21 06:40 96.2 F L 79 20 127/73 97 01/05/21 03:00 97.6 F 90 26 H 119/68 98 01/04/21 23:00 97.4 F 92 24 H 120/73 100 Pulse Ox 01/05/21 08:12 97 01/05/21 08:08 01/05/21 06:45 97 01/05/21 06:40 01/05/21 03:00 01/04/21 23:00 100 - Problem List Review Problem List Initiated/Reviewed/Updated: Yes - Plan Plan:: HPI summary: 80 year old female with known pulmonary fibrosis admitted to observation status from the [facility] ED department after presenting the AM of 01/02/2021 with increased confusion from baseline with noted weakness since one day prior to presentation. Family notes that she has had an increased cough. She did fall one day prior to presentation. It is unknown if there were inciting circumstances. Patient has fallen previously in the past. There were no known injuries from the fall. Family noted that in the morning she had increased confusion, had been incontinent of urine and was markedly weak where she was not helping with self care as usual. They brought her by private care to the hospital for evaluation. ED course: -VS: T98, P138, R33, BP 105/89, O2 sat 99% -Lab: WBC 7.43, Hgb 11.5 (baseline 12), Hct 37.9, RBC 3.68, neut 86.2, Na 139, K 4.3, Cl 96, CO2 32.2, anion gap 15.1, BUN 15, creatinine 0.43, GFR >60, glucose 197, lactic acid 2.4, Ca 9.5, LFT nl, CK 26, Ck-Mb <0.50, Troponin <0.017, total protein 8.3, albumin 3.09; COVID negative; blood cultures x 2 obtained -Urine: >1000 glucose, 40 ketones, small bili, negative leukocyte esterase, negative nitrites, occ hyaline casts, 0-5 RBC, 5-10 WBC, few epithelial cells and few bacteria. -Meds: metoprolol tartrate 2.5mg IVP for tachycardia, brought down to 120s -NS 125mL/hr -EKG: NSR, rate 141, p waves present, St-T wave depression -CXR: extensive bilateral infiltrates, apparently this is related to fibrosis, question of bilateral hilar adenopathy -CT head: No acute process -Admit obs/tele Hospital course: 01/02/2021: Patient in bed with daughter (January) and son (Aquiles) present. She offers no complaints at this time. Nursing reports temp has gone up to 100.1 and patient is diaphoretic. Added procalcitonin, CRP (>11), magnesium (1.8) to labs. Patient is more short of breath and family reports she has been coughing more in the last 24-48 hours. Nursing reports sats had dipped to 70s and patient's oxygen had to be increased to 5L to maintain sat of 90%. Patient will be started on empiric antibiotic treatment at this time. Patient is immunocompromised and has risk factors for BRIGIDO, will be placed on levofloxacin 750mg daily IV and plan for de-escalation depending on response and cultures. 01/03/21: Cognitive status improved this morning, patient A/O x3. Afebrile, tachycardic this morning with heart rate 130s to 140s after nebulizer treatment; mildy diaphoretic. This improved to 120s without intervention. Denies chest pain. Repeat EKG indicates sinus tach with PACs. HR 128, WA 174ms, QRS 82ms, QTc 481. Trops negative x 2 yesterday. BC x2 NGTD. Patient at baseline respiratory status at 5L NC, denies dyspnea. Continues to have minimally productive cough. Lactic acid down to 1.1 today. Mild weakness persists, nursing will assist patient to increase physical activity today to determine readiness for discharge home. Daughter, January at bedside this morning. States patient typically uses a walker at home. She offers concerns regarding her mother's depression when no family is present while hospitalized. Patient ambulating with walker and gait belt, minimal assist. Will plan to continue antibiotics upon discharge due to neutrophilia and known pulmonary disease. 01/04/21: Patient had an episode last evening of suspected mucous plugging of the airway with significant decrease in oxygen saturation in the 70's at rest and cyanosis. RN utilized oropharyngeal suctioning and removed the mucous plug from the airway with improvement. Patient experiencing significant hypoxia with minimal activity and increased weakness. Cough with increased sputum productivity. Low dose coreg 3.125mg BID started last night with improvement in heart rate to the 90s to low 100s as compared to 120s yesterday. Blood pressure stable. Patient remains afebrile. NGTD x2 days. Preliminary sputum gram stain indicates few gm - bacilli and rare PMN, final culture pending. Due to acute on chronic hypoxic respiratory failure and increased weakness, will change patient to inpatient status. Physical therapy eval and tx ordered this morning. Will continue IV levaquin as final respiratory culture in process. Daughter and son talking with social work this morning to determine possible discharge plans. Considering short swing bed stay if needed following inpatient stay if needed for additional therapy versus possible discharge to halfway facility if patient's status does not return to prior baseline at home. Patient typically home during the day by herself much of the day prior to this admission. D/C'd telemetry. Saline locked as patient drinking adequate oral fluids. 01/05/2021; upon rounds daughter January bedside, patient appears calm with no shortness of breath however appears weak feels weak. At 4 L per nasal cannula, POX 97% withou tachypnea or tachycardia. Appears to be tolerating low-dose/selective Coreg. Independently reviewed chest x-ray, significant/extensive for diffuse fibrosis, dual antibiotics of respiratory floroquinolone along newly added cefepime Hospitalization problems and plan: # Acute on chronic hypoxic respiratory failure with underlying severe pulmonary fibrosis -O2 to keep sat >90%, Oxygen at baseline. Add humidification. -Episode of cyanosis related to suspected mucous plugging, add humidification, PO fluids, will consider mucoactive agent if needed # Bilateral lobe pneumonia, suspect - known colonization of pseudomonas -Final culture pending, prelim indicates few gm - bacilli, rare PMN -Continue levofloxacin 750mg IV daily, cefepime 2g Q8H for broader spectrum coverage given known pseudomonas colonization, Trend ESR. -Hold bactrim at this time. --Constipation, Whole prunes, add MOM --Heartburn/Acid reflux sx. Add H2 at bedtime, cont with am PPI --Deconditioning, weakness, quite profound, PT. Resolved problems -lactic acid 1.1 (01/03/21) -Blood cultures x2 - NGTD x 3 days -procalcitonin 0.55--equivocal, trend ESR -Elevated lactate -Hypokalemia, Chronic, stable conditions: -Pulmonary fibrosis / ILD / Pseudomonas colonization: Pulmicort BID, prednisone 12.5mg daily, TMP-SMX DS daily MWF, benzonatate 200mg TID prn, albuterol HFA/neb prn. 03/09/2020 CT chest with extensive changes of fibrosis & honeycombing in the lung bases favoring UIP vs fibrosing NSIP. Sputum culture revealed normal [place]. Managed by Dr. Mcginnis, pulmonology. - Chronic hypoxic respiratory failure: 4-5lpm via nasal cannula continuously. Last oxygen evaluation 03/09/2020. - Pulmonary HTN: PASP 49mmHg on 12/17/19 echo. Likely type 3. Evaluated by cardiology 12/17/19 when catheterization was declined. - GERD / Dysphagia: Pantoprazole 40mg daily. Stable. - DMT2: Metformin XR 500mg TID (hold for now), Levemir 15un daily. - HLD: Fenofibrate 145mg daily. - B12 deficiency: takes B12 1000mcg daily - Mg deficiency: takes MgOx 500mg daily. - Calcium pyrophosphate deposition disease - RA: Azathioprine 100mg BID, hydroxychloroquine 200mg daily. Managed by Dr. Jett hall, rheumatology - Compression fracture / Osteopenia of multiple sites / Chronic prednisone use: Prolia every six months and Vitamin D 2000IU daily. Previously received Reclast and Forteo. - Chronic pain due to RA, idiopathic peripheral neuropathy, and compression fracture: Hunt 5/325 BID, acetaminophen 975mg between Hunt doses q4h during day, gabapentin 900mg TID, Rup rub prn. Miguel knee injections on 06/09/20 without subsequent help. - Recurrent falls / Deconditioning - Depression/Anxiety: takes Duloxetine 60mg daily, buspirone 5mg BID. - Memory loss - Allergic rhinitis: takes Cetirizine 10mg daily. Stable. - Dermatitis: Triamcinolone prn. 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 Misc. Medications: Cranberry 900mg daily. Hospitalization details: # FEN: NS at 50mL/hr; electrolytes stable; ADA diet lactose free # PPX: teds # Code status: DNR/DNI, POLST signed/on file # Emergency contact: January (daughter) updated at bedside Disposition/overall plan; --Patient qualifies for ongoing inpatient status to monitor the need for ongoing IV antibiotics, monitor oxygenation status, pulmonary secretions, may have to add mucolytic agent for mucous plugging. --Add 3 whole prunes daily, MOM --Trend ESR to guide antibiotic usage/de-escalation therapy --Delirium prophylaxis --Add H2 Fomatidine at bedtime, cont with am PPI --PT
[2021-01-05] MEDS: Magnesium Hydroxide 400 MG/5 ML Susp 30 ML Cup PO SCH (10:59)
[2021-01-05] MEDS: Cyanocobalamin (Vitamin B12) 500 MCG Tab PO SCH (12:08)
[2021-01-05] MEDS: predniSONE 10 MG Tab PO SCH (12:09)
[2021-01-05] MEDS: Magnesium Oxide 500 MG Tab PO SCH (12:09)
[2021-01-05] MEDS: Levofloxacin/Dextrose 5%-Water 500 MG in Premix Bag 1 BAG IV SCH (12:11)
[2021-01-05] MEDS: Gabapentin 300 MG Cap PO SCH ×3 (12:24→20:56)
[2021-01-05] MEDS: Levofloxacin/Dextrose 5%-Water 250 MG in Premix Bag 1 BAG IV SCH (13:23)
[2021-01-05] MEDS: DULoxetine 30 MG Cap PO SCH (20:49)
[2021-01-05] MEDS: Famotidine 20 MG Tab PO SCH (20:51)
[2021-01-05] MEDS: Hydroxychloroquine 200 MG Tab PO SCH (20:51)
[2021-01-05] MEDS: CRANBERRY 900 MG PO SCH (20:53)
[2021-01-05] MEDS: FENOFIBRATE 145 MG PO SCH (20:53)
[2021-01-05] MEDS: LEVEMIR INSULIN SUBCUT SCH (20:57)
[2021-01-05] MEDS: Sodium Chloride 0.9% 250 ML IV PRN (22:52)
[2021-01-06] MEDS: Magnesium Hydroxide 400 MG/5 ML Susp 30 ML Cup PO SCH ×2 (00:12→11:28)
[2021-01-06] MEDS: Acetaminophen 650 MG Tab.ER PO SCH ×3 (03:30→20:38)
[2021-01-06] MEDS: Omeprazole 20 MG Cap.CR PO SCH ×2 (06:08→06:43)
[2021-01-06] MEDS: Albuterol 0.083% 2.5 MG/3 ML Neb Soln INH SCH ×3 (06:09→20:28)
[2021-01-06] MEDS: Cefepime 2 GM in Sodium Chloride 0.9% 50 ML IV SCH ×3 (06:21→23:01)
[2021-01-06] MEDS: Insulin Aspart 100 Units/ML 3 ML Pen SUBCUT SCH ×4 (08:51→21:18)
[2021-01-06 09:00] LABS: ANION GAP 8.2 mmol/L (5-15); CHLORIDE,CL 97 mmol/L (98-107); SODIUM,NA 136 mmol/L (136-145)
[2021-01-06] MEDS: 50% Dextrose in Water 50 ML Syringe IV PRN ×2 (09:16→11:48)
[2021-01-06] MEDS: Sodium Chloride 0.9% 10 ML Syringe FLUSH PRN ×2 (09:18→12:04)
[2021-01-06] MEDS ORDERED: Magnesium Hydroxide 400 MG/5 ML Susp 30 ML Cup PO PRN (10:08)
[2021-01-06] MEDS: Budesonide 0.5 MG/2 ML Neb Susp INH SCH ×2 (10:38→20:42)
[2021-01-06] MEDS: busPIRone 10 MG Tab PO SCH ×2 (10:39→17:40)
[2021-01-06] MEDS: Acetaminophen/HYDROcodone 325-10 MG Tab PO SCH ×3 (10:39→23:04)
[2021-01-06] MEDS: AZATHIOPRINE 50 MG PO SCH ×2 (10:39→17:40)
[2021-01-06] MEDS: Cholecalciferol (Vitamin D3) 25 MCG Tab PO SCH (10:40)
[2021-01-06] MEDS: Cetirizine 10 MG Tab PO SCH (10:40)
[2021-01-06] MEDS: Benzonatate 100 MG Cap PO SCH ×3 (10:40→17:40)
[2021-01-06] MEDS: Carvedilol 6.25 MG Tab PO SCH ×2 (10:40→20:35)
--- NOTE | 2021-01-06 11:16 | PCM.PN ---
- General Info Date of Service: 01/06/21 Functional Status: Reports: Pain Controlled, New Symptoms (Drowsy this morning, some confusion, large bowel movement last night). Denies: Tolerating Diet - Review of Systems General: Reports: Weakness, Fatigue, Malaise Pulmonary: Reports: Cough. Denies: Shortness of Breath, Wheezing Cardiovascular: Denies: Chest Pain, Edema Gastrointestinal: Reports: Diarrhea Skin: Reports: No Symptoms Neurological: Reports: Confusion Psychiatric: Reports: Confusion. Denies: Agitation - Patient Data Vitals - Most Recent: Last Vital Signs Temp 97.2 F 01/06/21 06:38 Pulse 86 01/06/21 06:40 Resp 24 H 01/06/21 06:38 BP 134/75 01/06/21 06:38 Pulse Ox 100 01/06/21 10:41 Weight - Most Recent: 120 lb I&O - Last 24 Hours: Intake & Output 01/05/21 01/06/21 01/06/21 22:59 06:59 14:59 Intake Total 690 145 Output Total 200 Balance 490 145 Lab Results Last 24 Hours: Laboratory Results - last 24 hr 01/05/21 01/05/21 01/05/21 Range/Units 11:35 17:22 20:46 WBC (5.00-10.00) 10^3/uL RBC (3.80-5.50) 10^6/uL Hgb (12.0-16.0) g/dL Hct (37.0-47.0) % MCV (82.0-92.0) fL MCH (27.0-31.0) pg MCHC (32.0-36.0) g/dL RDW (11.5-14.5) % Plt Count (150-400) 10^3/uL MPV (7.4-10.4) fL Immature Gran % (Auto) (0.0-5.0) % Neut % (Auto) (50.0-70.0) % Lymph % (Auto) (20.0-40.0) % [place] % (Auto) (2.0-8.0) % Eos % (Auto) (1.0-3.0) % Baso % (Auto) (0.0-1.0) % Neut # (Auto) (2.50-7.00) 10^3/uL Lymph # (Auto) (1.00-4.00) 10^3/uL [place] # (Auto) (0.10-0.80) 10^3/uL Eos # (Auto) (0.10-0.30) 10^3/uL Baso # (Auto) (0.00-0.10) 10^3/uL Immature Gran # (Auto) (0.00-0.50) 10^3/uL Sodium (136-145) mmol/L Potassium (3.5-5.1) mmol/L Chloride (98-107) mmol/L Carbon Dioxide (21.0-32.0) mmol/L Anion Gap (5-15) mmol/L BUN (7-18) mg/dL Creatinine (0.51-1.17) mg/dL Est Cr Clr Drug Dosing mL/min Estimated GFR (MDRD) mL/min Glucose (70-140) mg/dL POC Glucose 91 156 H 275 H (74-106) mg/dl Calcium (8.7-10.3) mg/dL 01/05/21 01/06/21 01/06/21 Range/Units 22:42 03:21 07:25 WBC (5.00-10.00) 10^3/uL RBC (3.80-5.50) 10^6/uL Hgb (12.0-16.0) g/dL Hct (37.0-47.0) % MCV (82.0-92.0) fL MCH (27.0-31.0) pg MCHC (32.0-36.0) g/dL RDW (11.5-14.5) % Plt Count (150-400) 10^3/uL MPV (7.4-10.4) fL Immature Gran % (Auto) (0.0-5.0) % Neut % (Auto) (50.0-70.0) % Lymph % (Auto) (20.0-40.0) % [place] % (Auto) (2.0-8.0) % Eos % (Auto) (1.0-3.0) % Baso % (Auto) (0.0-1.0) % Neut # (Auto) (2.50-7.00) 10^3/uL Lymph # (Auto) (1.00-4.00) 10^3/uL [place] # (Auto) (0.10-0.80) 10^3/uL Eos # (Auto) (0.10-0.30) 10^3/uL Baso # (Auto) (0.00-0.10) 10^3/uL Immature Gran # (Auto) (0.00-0.50) 10^3/uL Sodium 136 (136-145) mmol/L Potassium 4.0 (3.5-5.1) mmol/L Chloride 97 L (98-107) mmol/L Carbon Dioxide 34.8 H (21.0-32.0) mmol/L Anion Gap 8.2 (5-15) mmol/L BUN 11 (7-18) mg/dL Creatinine 0.38 L (0.51-1.17) mg/dL Est Cr Clr Drug Dosing 99.30 mL/min Estimated GFR (MDRD) > 60 mL/min Glucose 64 L (70-140) mg/dL POC Glucose 205 H 114 H (74-106) mg/dl Calcium 8.7 (8.7-10.3) mg/dL 01/06/21 01/06/21 Range/Units 07:25 07:26 WBC 7.21 (5.00-10.00) 10^3/uL RBC 3.35 L (3.80-5.50) 10^6/uL Hgb 10.4 L (12.0-16.0) g/dL Hct 34.5 L (37.0-47.0) % MCV 103.0 H (82.0-92.0) fL MCH 31.0 (27.0-31.0) pg MCHC 30.1 L (32.0-36.0) g/dL RDW 15.1 H (11.5-14.5) % Plt Count 330 (150-400) 10^3/uL MPV 8.3 (7.4-10.4) fL Immature Gran % (Auto) 0.6 (0.0-5.0) % Neut % (Auto) 82.5 H (50.0-70.0) % Lymph % (Auto) 4.7 L (20.0-40.0) % [place] % (Auto) 12.1 H (2.0-8.0) % Eos % (Auto) 0.1 L (1.0-3.0) % Baso % (Auto) 0.0 (0.0-1.0) % Neut # (Auto) 5.95 (2.50-7.00) 10^3/uL Lymph # (Auto) 0.34 L (1.00-4.00) 10^3/uL [place] # (Auto) 0.87 H (0.10-0.80) 10^3/uL Eos # (Auto) 0.01 L (0.10-0.30) 10^3/uL Baso # (Auto) 0.00 (0.00-0.10) 10^3/uL Immature Gran # (Auto) 0.04 (0.00-0.50) 10^3/uL Sodium (136-145) mmol/L Potassium (3.5-5.1) mmol/L Chloride (98-107) mmol/L Carbon Dioxide (21.0-32.0) mmol/L Anion Gap (5-15) mmol/L BUN (7-18) mg/dL Creatinine (0.51-1.17) mg/dL Est Cr Clr Drug Dosing mL/min Estimated GFR (MDRD) mL/min Glucose (70-140) mg/dL POC Glucose 78 (74-106) mg/dl Calcium (8.7-10.3) mg/dL Faisal Results Last 24 Hours: Microbiology 01/02/21 16:10 Respiratory Culture - Preliminary Sputum - Expectorated Probable Pseudomon Aeruginosa Gram Stain - Final 01/02/21 08:30 Aerobic Blood Culture - Preliminary Blood - Arm, Left NO GROWTH AFTER 4 DAYS Anaerobic Blood Culture - Preliminary NO GROWTH AFTER 4 DAYS 01/02/21 08:15 Aerobic Blood Culture - Preliminary Blood - Arm, Right NO GROWTH AFTER 4 DAYS Anaerobic Blood Culture - Preliminary NO GROWTH AFTER 4 DAYS Med Orders - Current: Current Medications Acetaminophen (Acetaminophen 650 Mg Tab.Er) 650 mg PO TID@0400,1200,2000 [facility] Last Admin: 01/06/21 03:30 Dose: 650 mg Documented by: Hydrocodone Bitart/Acetaminophen (Acetaminophen/Hydrocodone 325-10 Mg Tab) 1 tab PO 0000,0800,1600 [facility] Last Admin: 01/06/21 10:39 Dose: Not Given Documented by: Hydrocodone Bitart/Acetaminophen (Acetaminophen/Hydrocodone 325-10 Mg Tab) 1 tab PO DAILY PRN PRN Reason: PAIN Albuterol (Albuterol 0.083% 2.5 Mg/3 Ml Neb Soln) 2.5 mg INH 0730,1930 [facility] Last Admin: 01/06/21 06:43 Dose: Not Given Documented by: Benzonatate (Benzonatate 100 Mg Cap) 200 mg PO 0900,1300,1700 [facility] Last Admin: 01/06/21 10:40 Dose: Not Given Documented by: Benzonatate (Benzonatate 100 Mg Cap) 200 mg PO 2100 PRN PRN Reason: COUGH Last Admin: 01/04/21 13:47 Dose: 200 mg Documented by: Budesonide (Budesonide 0.5 Mg/2 Ml Neb Susp) 0.5 mg INH 0800,2000 [facility] Last Admin: 01/06/21 10:38 Dose: 0.5 mg Documented by: Buspirone HCl (Buspirone 10 Mg Tab) 5 mg PO 0900,1700 [facility] Last Admin: 01/06/21 10:39 Dose: Not Given Documented by: Carvedilol (Carvedilol 6.25 Mg Tab) 3.125 mg PO BID [facility] Last Admin: 01/06/21 10:40 Dose: Not Given Documented by: Cetirizine HCl (Cetirizine 10 Mg Tab) 10 mg PO DAILY [facility] Last Admin: 01/06/21 10:40 Dose: Not Given Documented by: Cholecalciferol (Cholecalciferol (Vitamin D3) 25 Mcg Tab) 50 mcg PO 0900 [facility] Last Admin: 01/06/21 10:40 Dose: Not Given Documented by: Cyanocobalamin (Cyanocobalamin (Vitamin B12) 500 Mcg Tab) 1,000 mcg PO DAILY@1300 [facility] Last Admin: 01/05/21 12:08 Dose: 1,000 mcg Documented by: Dextrose/Water (50% Dextrose In Water 50 Ml Syringe) 50 ml IV ASDIRECTED PRN PRN Reason: Hypoglycemia Last Admin: 01/06/21 09:16 Dose: 25 ml Documented by: Duloxetine HCl (Duloxetine 30 Mg Cap) 60 mg PO 2100 [facility] Last Admin: 01/05/21 20:49 Dose: 60 mg Documented by: Famotidine (Famotidine 20 Mg Tab) 20 mg PO BEDTIME [facility] Last Admin: 01/05/21 20:51 Dose: 20 mg Documented by: Gabapentin (Gabapentin 300 Mg Cap) 900 mg PO 1300,1700,2100 [facility] Last Admin: 01/05/21 20:56 Dose: 900 mg Documented by: Glucagon (Glucagon,Human Recombinant 1 Mg Vial) 1 mg IM ASDIRECTED PRN PRN Reason: Hypoglycemia Hydroxychloroquine Sulfate (Hydroxychloroquine 200 Mg Tab) 200 mg PO 2100 [facility] Last Admin: 01/05/21 20:51 Dose: 200 mg Documented by: Levofloxacin/Dextrose 250 mg/ (Premix) 50 mls @ 100 mls/hr IV Q24H [facility] Last Admin: 01/05/21 13:23 Dose: 100 mls/hr Documented by: Levofloxacin/Dextrose 500 mg/ (Premix) 100 mls @ 100 mls/hr IV Q24H [facility] Last Admin: 01/05/21 12:11 Dose: 100 mls/hr Documented by: Sodium Chloride (Normal Saline) 250 mls @ 25 mls/hr IV ASDIRECTED PRN PRN Reason: FLUSH BAG Last Admin: 01/05/21 22:52 Dose: 125 mls/hr Documented by: Cefepime HCl 2 gm/ Sodium (Chloride) 50 mls @ 100 mls/hr IV Q8H [facility] Last Admin: 01/06/21 06:21 Dose: 100 mls/hr Documented by: Insulin Aspart (Insulin Aspart 100 Units/Ml 3 Ml Pen) 0 unit SUBCUT WITHMEALSANDBED [facility]; Protocol Last Admin: 01/06/21 08:51 Dose: Not Given Documented by: Magnesium Hydroxide (Magnesium Hydroxide 400 Mg/5 Ml Susp 30 Ml Cup) 30 ml PO DAILY PRN PRN Reason: Constipation Magnesium Oxide (Magnesium Oxide 500 Mg Tab) 500 mg PO 1300 [facility] Last Admin: 01/05/21 12:09 Dose: 500 mg Documented by: Azathioprine 50 Mg (Tablet - Ptom) 100 mg PO 0900,1700 [facility] Last Admin: 01/06/21 10:39 Dose: Not Given Documented by: Cranberry 900mg (Capsule - Ptom) 900 mg PO 2100 [facility] Last Admin: 01/05/21 20:53 Dose: 900 mg Documented by: Fenofibrate 145 Mg (Tablet - Ptom) 145 mg PO 2100 [facility] Last Admin: 01/05/21 20:53 Dose: 145 mg Documented by: Levemir (Insulin Detemir) 100 Unit/Ml Insulin Pen - Ptom 18 units SUBCUT 1999 [facility] Last Admin: 01/05/21 20:57 Dose: 18 units Documented by: Omeprazole (Omeprazole 20 Mg Cap.Cr) 20 mg PO ACBREAKFAST [facility] Last Admin: 01/06/21 06:43 Dose: Not Given Documented by: Prednisone (Prednisone 10 Mg Tab) 10 mg PO 1300 [facility] Last Admin: 01/05/21 12:09 Dose: 10 mg Documented by: Sodium Chloride (Sodium Chloride 0.9% 10 Ml Syringe) 10 ml FLUSH Q8HR PRN PRN Reason: keep vein open Last Admin: 01/06/21 09:18 Dose: 10 ml Documented by: Triamcinolone Acetonide (Triamcinolone Acetonide 0.1% Crm 15 Gm Tube) 0 gm TOP BID PRN PRN Reason: Rash Trimethoprim/Sulfamethoxazole (Sulfamethoxazole/Trimethoprim 800-160 Mg Tab) 1 tab PO MoWeFr@1700 [facility] Last Admin: 01/04/21 17:40 Dose: 1 tab Documented by: Discontinued Medications Hydrocodone Bitart/Acetaminophen (Acetaminophen/Hydrocodone 325-10 Mg Tab) 1 tab PO 0000,0800,1600 [facility] Last Admin: 01/04/21 07:41 Dose: Not Given Documented by: Hydrocodone Bitart/Acetaminophen (Acetaminophen/Hydrocodone 325-10 Mg Tab) 1 ta b PO DAILY PRN PRN Reason: PAIN Albuterol (Albuterol 0.083% 2.5 Mg/3 Ml Neb Soln) 2.5 mg INH 0730,1930 [facility] Last Admin: 01/04/21 06:33 Dose: 2.5 mg Documented by: Atropine Sulfate (Atropine 0.1 Mg/Ml 10 Ml Syringe) 0 mg IVPUSH ASDIRECTED PRN PRN Reason: Heart. Budesonide (Budesonide 0.5 Mg/2 Ml Neb Susp - Ptom) 0.5 mg INH 08,1999 [facility] Last Admin: 01/04/21 07:29 Dose: 0.5 mg Documented by: Epinephrine HCl (Epinephrine 1:10,000 1 Mg/10 Ml Syringe) 1 mg IVPUSH ASDIRECTED PRN PRN Reason: Heart. Gabapentin (Gabapentin 300 Mg Cap - Ptom) 900 mg PO 1300,1700,2100 [facility] Last Admin: 01/04/21 19:09 Dose: Not Given Documented by: Guaifenesin/Codeine Phosphate (Codeine/Guaifenesin 10-100 Mg/5 Ml Syrup 5 Ml Cup) 5 ml PO DAILY PRN PRN Reason: Cough Sodium Chloride (Normal Saline) 1,000 mls @ 50 mls/hr IV ASDIRECTED [facility] Last Admin: 01/04/21 09:39 Dose: 50 mls/hr Documented by: Cefepime HCl 2 gm/ Sodium (Chloride) 50 mls @ 100 mls/hr IV Q12H [facility] Lidocaine HCl (Lidocaine 2% 100 Mg/5 Ml Syringe) 0 mg IVPUSH ASDIRECTED PRN PRN Reason: Heart. Magnesium Hydroxide (Magnesium Hydroxide 400 Mg/5 Ml Susp 30 Ml Cup) 30 ml PO BID [facility] Last Admin: 01/06/21 00:12 Dose: Not Given Documented by: Metoprolol Tartrate (Metoprolol Tartrate 5 Mg/5 Ml Sdv) 2.5 mg IVPUSH ONETIME ONE Stop: 01/02/21 09:24 Last Admin: 01/02/21 09:27 Dose: 2.5 mg Documented by: Nitroglycerin (Nitroglycerin 0.4 Mg Tab.Sl) 0.4 mg SL ASDIRECTED PRN PRN Reason: Heart. Benzonatate 100 Mg (Capsule - Ptom) 200 mg PO 0900,1200,1700 [facility] Buspirone 5 Mg (Tablet - Ptom) 5 mg PO 0900,1700 [facility] Last Admin: 01/04/21 09:37 Dose: 5 mg Documented by: Duloxetine 60mg (Capsule - Ptom) 1 each PO 2100 [facility] Last Admin: 01/03/21 21:18 Dose: 1 each Documented by: Hydroxychloroquine [ Plaquenil] 200 Mg Tablet - Ptom 200 mg PO 2100 [facility] Last Admin: 01/03/21 21:17 Dose: 200 mg Documented by: Pantoprazole Dr 20mg (Tablet - Ptom) 20 mg PO DAILY [facility] Last Admin: 01/04/21 09:37 Dose: 20 mg Documented by: Benzonatate 200 Mg (Capsule - Ptom) 200 mg PO 0900,1300,1700 [facility] Last Admin: 01/04/21 19:09 Dose: Not Given Documented by: Benzonatate 200mg (Cap - Ptom) 1 each PO 2100 PRN PRN Reason: COUGH Last Admin: 01/03/21 17:18 Dose: 1 each Documented by: Potassium Chloride (Potassium Chloride 20 Meq Tab.Er) 20 meq PO ONETIME ONE Stop: 01/04/21 13:21 Last Admin: 01/04/21 13:47 Dose: 20 meq Documented by: Prednisone (Prednisone 5 Mg Tab - Ptom) 10 mg PO 1300 [facility] Last Admin: 01/04/21 19:09 Dose: Not Given Documented by: Ramelteon (Ramelteon 8 Mg Tab) 8 mg PO BEDTIME [facility] Last Admin: 01/05/21 20:51 Dose: 8 mg Documented by: Trimethoprim/Sulfamethoxazole (Sulfamethoxazole/Trimethoprim 800-160 Mg Tab - Ptom) 1 tab PO MoWeFr [facility] Last Admin: 01/02/21 17:00 Dose: 1 tab Documented by: - Exam Quality Assessment: Supplemental Oxygen General: Alert (Drowsy), Oriented, Cooperative Lungs: Rhonchi Cardiovascular: Regular Rate, Regular Rhythm GI/Abdominal Exam: Soft, Non-Tender Back Exam: No: CVA Tenderness (L), CVA Tenderness (R) Skin: Warm, Dry, Intact Neurological: Sensation Intact Psy/Mental Status: Other (Allergy this morning on rounds, week) - Patient Data Lab Results Last 24 hrs: Laboratory Results - last 24 hr 01/05/21 01/05/21 01/05/21 Range/Units 11:35 17:22 20:46 WBC (5.00-10.00) 10^3/uL RBC (3.80-5.50) 10^6/uL Hgb (12.0-16.0) g/dL Hct (37.0-47.0) % MCV (82.0-92.0) fL MCH (27.0-31.0) pg MCHC (32.0-36.0) g/dL RDW (11.5-14.5) % Plt Count (150-400) 10^3/uL MPV (7.4-10.4) fL Immature Gran % (Auto) (0.0-5.0) % Neut % (Auto) (50.0-70.0) % Lymph % (Auto) (20.0-40.0) % [place] % (Auto) (2.0-8.0) % Eos % (Auto) (1.0-3.0) % Baso % (Auto) (0.0-1.0) % Neut # (Auto) (2.50-7.00) 10^3/uL Lymph # (Auto) (1.00-4.00) 10^3/uL [place] # (Auto) (0.10-0.80) 10^3/uL Eos # (Auto) (0.10-0.30) 10^3/uL Baso # (Auto) (0.00-0.10) 10^3/uL Immature Gran # (Auto) (0.00-0.50) 10^3/uL Sodium (136-145) mmol/L Potassium (3.5-5.1) mmol/L Chloride (98-107) mmol/L Carbon Dioxide (21.0-32.0) mmol/L Anion Gap (5-15) mmol/L BUN (7-18) mg/dL Creatinine (0.51-1.17) mg/dL Est Cr Clr Drug Dosing mL/min Estimated GFR (MDRD) mL/min Glucose (70-140) mg/dL POC Glucose 91 156 H 275 H (74-106) mg/dl Calcium (8.7-10.3) mg/dL 01/05/21 01/06/21 01/06/21 Range/Units 22:42 03:21 07:25 WBC (5.00-10.00) 10^3/uL RBC (3.80-5.50) 10^6/uL Hgb (12.0-16.0) g/dL Hct (37.0-47.0) % MCV (82.0-92.0) fL MCH (27.0-31.0) pg MCHC (32.0-36.0) g/dL RDW (11.5-14.5) % Plt Count (150-400) 10^3/uL MPV (7.4-10.4) fL Immature Gran % (Auto) (0.0-5.0) % Neut % (Auto) (50.0-70.0) % Lymph % (Auto) (20.0-40.0) % [place] % (Auto) (2.0-8.0) % Eos % (Auto) (1.0-3.0) % Baso % (Auto) (0.0-1.0) % Neut # (Auto) (2.50-7.00) 10^3/uL Lymph # (Auto) (1.00-4.00) 10^3/uL [place] # (Auto) (0.10-0.80) 10^3/uL Eos # (Auto) (0.10-0.30) 10^3/uL Baso # (Auto) (0.00-0.10) 10^3/uL Immature Gran # (Auto) (0.00-0.50) 10^3/uL Sodium 136 (136-145) mmol/L Potassium 4.0 (3.5-5.1) mmol/L Chloride 97 L (98-107) mmol/L Carbon Dioxide 34.8 H (21.0-32.0) mmol/L Anion Gap 8.2 (5-15) mmol/L BUN 11 (7-18) mg/dL Creatinine 0.38 L (0.51-1.17) mg/dL Est Cr Clr Drug Dosing 99.30 mL/min Estimated GFR (MDRD) > 60 mL/min Glucose 64 L (70-140) mg/dL POC Glucose 205 H 114 H (74-106) mg/dl Calcium 8.7 (8.7-10.3) mg/dL 01/06/21 01/06/21 Range/Units 07:25 07:26 WBC 7.21 (5.00-10.00) 10^3/uL RBC 3.35 L (3.80-5.50) 10^6/uL Hgb 10.4 L (12.0-16.0) g/dL Hct 34.5 L (37.0-47.0) % MCV 103.0 H (82.0-92.0) fL MCH 31.0 (27.0-31.0) pg MCHC 30.1 L (32.0-36.0) g/dL RDW 15.1 H (11.5-14.5) % Plt Count 330 (150-400) 10^3/uL MPV 8.3 (7.4-10.4) fL Immature Gran % (Auto) 0.6 (0.0-5.0) % Neut % (Auto) 82.5 H (50.0-70.0) % Lymph % (Auto) 4.7 L (20.0-40.0) % [place] % (Auto) 12.1 H (2.0-8.0) % Eos % (Auto) 0.1 L (1.0-3.0) % Baso % (Auto) 0.0 (0.0-1.0) % Neut # (Auto) 5.95 (2.50-7.00) 10^3/uL Lymph # (Auto) 0.34 L (1.00-4.00) 10^3/uL [place] # (Auto) 0.87 H (0.10-0.80) 10^3/uL Eos # (Auto) 0.01 L (0.10-0.30) 10^3/uL Baso # (Auto) 0.00 (0.00-0.10) 10^3/uL Immature Gran # (Auto) 0.04 (0.00-0.50) 10^3/uL Sodium (136-145) mmol/L Potassium (3.5-5.1) mmol/L Chloride (98-107) mmol/L Carbon Dioxide (21.0-32.0) mmol/L Anion Gap (5-15) mmol/L BUN (7-18) mg/dL Creatinine (0.51-1.17) mg/dL Est Cr Clr Drug Dosing mL/min Estimated GFR (MDRD) mL/min Glucose (70-140) mg/dL POC Glucose 78 (74-106) mg/dl Calcium (8.7-10.3) mg/dL Result Diagrams: 01/06/21 07:25 01/06/21 07:25 Faisal Results Last 24 hrs: Microbiology 01/02/21 16:10 Respiratory Culture - Preliminary Sputum - Expectorated Probable Pseudomon Aeruginosa Gram Stain - Final 01/02/21 08:30 Aerobic Blood Culture - Preliminary Blood - Arm, Left NO GROWTH AFTER 4 DAYS Anaerobic Blood Culture - Preliminary NO GROWTH AFTER 4 DAYS 01/02/21 08:15 Aerobic Blood Culture - Preliminary Blood - Arm, Right NO GROWTH AFTER 4 DAYS Anaerobic Blood Culture - Preliminary NO GROWTH AFTER 4 DAYS Sepsis Event Note - Evaluation Sepsis Screening Result: No Definite Risk - Focused Exam Vital Signs: Vital Signs Temp Pulse Resp BP Pulse Ox Pulse Ox 01/06/21 10:41 100 01/06/21 06:40 86 96 01/06/21 06:38 97.2 F 94 24 H 134/75 96 01/06/21 03:00 97.5 F 86 22 H 118/72 99 - Problem List Review Problem List Initiated/Reviewed/Updated: Yes - My Orders Last 24 Hours: My Active Orders 01/05/21 21:00 Famotidine [Pepcid] 20 mg PO BEDTIME 01/06/21 07:25 SED RATE [REF] Routine 01/06/21 10:08 Magnesium Hydroxide [Milk of Magnesia] 30 ml PO DAILY PRN 01/06/21 10:10 RT Suction Oropharyngeal [RESPCARE] Routine - Plan Plan:: HPI summary: 80 year old female with known pulmonary fibrosis admitted to observation status from the [facility] ED department after presenting the AM of 01/02/2021 with increased confusion from baseline with noted weakness since one day prior to presentation. Family notes that she has had an increased cough. She did fall one day prior to presentation. It is unknown if there were inciting circumstances. Patient has fallen previously in the past. There were no known injuries from the fall. Family noted that in the morning she had increased confusion, had been incontinent of urine and was markedly weak where she was not helping with self care as usual. They brought her by private care to the hospital for evaluation. ED course: -VS: T98, P138, R33, BP 105/89, O2 sat 99% -Lab: WBC 7.43, Hgb 11.5 (baseline 12), Hct 37.9, RBC 3.68, neut 86.2, Na 139, K 4.3, Cl 96, CO2 32.2, anion gap 15.1, BUN 15, creatinine 0.43, GFR >60, glucose 197, lactic acid 2.4, Ca 9.5, LFT nl, CK 26, Ck-Mb <0.50, Troponin <0.017, total protein 8.3, albumin 3.09; COVID negative; blood cultures x 2 obtained -Urine: >1000 glucose, 40 ketones, small bili, negative leukocyte esterase, negative nitrites, occ hyaline casts, 0-5 RBC, 5-10 WBC, few epithelial cells and few bacteria. -Meds: metoprolol tartrate 2.5mg IVP for tachycardia, brought down to 120s -NS 125mL/hr -EKG: NSR, rate 141, p waves present, St-T wave depression -CXR: extensive bilateral infiltrates, apparently this is related to fibrosis, question of bilateral hilar adenopathy -CT head: No acute process -Admit obs/tele Hospital course: 01/02/2021: Patient in bed with daughter (Chasity) and son (Aquiles) present. She offers no complaints at this time. Nursing reports temp has gone up to 100.1 and patient is diaphoretic. Added procalcitonin, CRP (>11), magnesium (1.8) to labs. Patient is more short of breath and family reports she has been coughing more in the last 24-48 hours. Nursing reports sats had dipped to 70s and patient's oxygen had to be increased to 5L to maintain sat of 90%. Patient will be started on empiric antibiotic treatment at this time. Patient is immunocompromised and has risk factors for BRIGIDO, will be placed on levofloxacin 750mg daily IV and plan for de-escalation depending on response and cultures. 01/03/21: Cognitive status improved this morning, patient A/O x3. Afebrile, tachycardic this morning with heart rate 130s to 140s after nebulizer treatment; mildy diaphoretic. This improved to 120s without intervention. Denies chest pain. Repeat EKG indicates sinus tach with PACs. HR 128, OR 174ms, QRS 82ms, QTc 481. Trops negative x 2 yesterday. BC x2 NGTD. Patient at baseline respiratory status at 5L NC, denies dyspnea. Continues to have minimally productive cough. Lactic acid down to 1.1 today. Mild weakness persists, nursing will assist patient to increase physical activity today to determine readiness for discharge home. Daughter, Chasity at bedside this morning. States patient typically uses a walker at home. She offers concerns regarding her mother's depression when no family is present while hospitalized. Patient ambulating with walker and gait belt, minimal assist. Will plan to continue antibiotics upon discharge due to neutrophilia and known pulmonary disease. 01/04/21: Patient had an episode last evening of suspected mucous plugging of the airway with significant decrease in oxygen saturation in the 70's at rest and cyanosis. RN utilized oropharyngeal suctioning and removed the mucous plug from the airway with improvement. Patient experiencing significant hypoxia with minimal activity and increased weakness. Cough with increased sputum productivity. Low dose coreg 3.125mg BID started last night with improvement in heart rate to the 90s to low 100s as compared to 120s yesterday. Blood pressure stable. Patient remains afebrile. BC NGTD x2 days. Preliminary sputum gram stain indicates few gm - bacilli and rare PMN, final culture pending. Due to acute on chronic hypoxic respiratory failure and increased weakness, will change patient to inpatient status. Physical therapy eval and tx ordered this morning. Will continue IV levaquin as final respiratory culture in process. Daughter and son talking with social work this morning to determine possible discharge plans. Considering short swing bed stay if needed following inpatient stay if needed for additional therapy versus possible discharge to [facility] facility if patient's status does not return to prior baseline at home. Patient typically home during the day by herself much of the day prior to this admission. D/C'd telemetry. Saline locked as patient drinking adequate oral fluids. 01/05/2021; upon rounds daughter January bedside, patient appears calm with no shortness of breath however appears weak feels weak. At 4 L per nasal cannula, POX 97% withou tachypnea or tachycardia. Appears to be tolerating low- dose/selective Coreg. Independently reviewed chest x-ray, significant/extensive for diffuse fibrosis, dual antibiotics of respiratory- floroquinolone along newly added cefepime 01/06/2021; constipation resolved as patient had multiple bowel movements with milk of magnesia. Reduce to as needed. Had a good day yesterday however nurses reported some confusion and sedation this morning--nurses felt hypoglycemia with glucose of 70s, half of amp of D50 given. Prelimb respiratory culture probable pseudomonal aeruginsosa Hospitalization problems and plan: # Acute on chronic hypoxic respiratory failure with underlying severe pulmonary fibrosis -O2 to keep sat >90%, Oxygen at baseline. Add humidification. -Episode of cyanosis related to suspected mucous plugging, add humidification, PO fluids, will consider mucoactive agent if needed # Bilateral lobe pneumonia, suspect - known colonization of pseudomonas -Final culture pending, prelim indicates few gm - bacilli, rare PMN -Continue levofloxacin 750mg IV daily, cefepime 2g Q8H for broader spectrum coverage given known pseudomonas colonization, Trend ESR. -Hold bactrim at this time. --Constipation, Whole prunes, add MOM --Heartburn/Acid reflux sx. Add H2 at bedtime, cont with am PPI --Deconditioning, weakness, quite profound, PT. Resolved problems -lactic acid 1.1 (01/03/21) -Blood cultures x2 - NGTD x 3 days -procalcitonin 0.55--equivocal, trend ESR -Elevated lactate -Hypokalemia, Chronic, stable conditions: -Pulmonary fibrosis / ILD / Pseudomonas colonization: Pulmicort BID, prednisone 12.5mg daily, TMP-SMX DS daily MWF, benzonatate 200mg TID prn, albuterol HFA/neb prn. 03/09/2020 CT chest with extensive changes of fibrosis & honeycombing in the lung bases favoring UIP vs fibrosing NSIP. Sputum culture revealed normal [place]. Managed by Dr. Mcginnis, pulmonology. - Chronic hypoxic respiratory failure: 4-5lpm via nasal cannula continuously. Last oxygen evaluation 03/09/2020. - Pulmonary HTN: PASP 49mmHg on 12/17/19 echo. Likely type 3. Evaluated by cardiology 12/17/19 when catheterization was declined. - GERD / Dysphagia: Pantoprazole 40mg daily. Stable. - DMT2: Metformin XR 500mg TID (hold for now), Levemir 15un daily. - HLD: Fenofibrate 145mg daily. - B12 deficiency: takes B12 1000mcg daily - Mg deficiency: takes MgOx 500mg daily. - Calcium pyrophosphate deposition disease - RA: Azathioprine 100mg BID, hydroxychloroquine 200mg daily. Managed by Dr. Giraldo, rheumatology - Compression fracture / Osteopenia of multiple sites / Chronic prednisone use: Prolia every six months and Vitamin D 2000IU daily. Previously received Reclast and Forteo. - Chronic pain due to RA, idiopathic peripheral neuropathy, and compression fracture: Arthur 5/325 BID, acetaminophen 975mg between Arthur doses q4h during day, gabapentin 900mg TID, Rup rub prn. Miguel knee injections on 06/09/20 without subsequent help. - Recurrent falls / Deconditioning - Depression/Anxiety: takes Duloxetine 60mg daily, buspirone 5mg BID. - Memory loss - Allergic rhinitis: takes Cetirizine 10mg daily. Stable. - Dermatitis: Triamcinolone prn. 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 Misc. Medications: Cranberry 900mg daily. Hospitalization details: # FEN: NS at 50mL/hr; electrolytes stable; ADA diet lactose free # PPX: teds # Code status: DNR/DNI, POLST signed/on file # Emergency contact: January (daughter) updated at bedside Disposition/overall plan; --Patient qualifies for ongoing inpatient status to monitor the need for ongoing IV antibiotics, monitor oxygenation status, pulmonary secretions, --Trend ESR to guide antibiotic usage/de-escalation therapy --Add H2 Fomatidine at bedtime, cont with am PPI --PT possibility of swing bed status tomorrow.
[2021-01-06] MEDS ORDERED: Metoprolol Tartrate 5 MG/5 ML SDV IVPUSH ONE ×3 (11:26→21:25)
[2021-01-06] MEDS ORDERED: Dextrose 5% in Water 1,000 ML ONE (11:52)
[2021-01-06] MEDS: Dextrose 5% in Water 1,000 ML IV SCH (11:55)
[2021-01-06] MEDS: Levofloxacin/Dextrose 5%-Water 500 MG in Premix Bag 1 BAG IV SCH (13:23)
[2021-01-06] MEDS: predniSONE 10 MG Tab PO SCH (13:25)
[2021-01-06] MEDS: Cyanocobalamin (Vitamin B12) 500 MCG Tab PO SCH (13:25)
[2021-01-06] MEDS: Gabapentin 300 MG Cap PO SCH ×3 (13:25→20:38)
[2021-01-06] MEDS: Magnesium Oxide 500 MG Tab PO SCH (13:26)
[2021-01-06] MEDS: Levofloxacin/Dextrose 5%-Water 250 MG in Premix Bag 1 BAG IV SCH (15:01)
[2021-01-06] MEDS: Famotidine 20 MG Tab PO SCH (20:38)
[2021-01-06] MEDS: DULoxetine 30 MG Cap PO SCH (20:38)
[2021-01-06] MEDS: FENOFIBRATE 145 MG PO SCH (20:38)
[2021-01-06] MEDS: Hydroxychloroquine 200 MG Tab PO SCH (20:38)
[2021-01-06] MEDS: CRANBERRY 900 MG PO SCH (20:38)
[2021-01-06] MEDS: Benzonatate 100 MG Cap PO PRN (21:42)
[2021-01-07] MEDS: Acetaminophen 650 MG Tab.ER PO SCH ×3 (03:09→21:19)
[2021-01-07] MEDS ORDERED: Metoprolol Tartrate 5 MG/5 ML SDV IVPUSH PRN (03:40)
[2021-01-07] MEDS: Dextrose 5% in Water 1,000 ML IV SCH (06:11)
[2021-01-07] MEDS: Cefepime 2 GM in Sodium Chloride 0.9% 50 ML IV SCH ×3 (06:11→21:50)
[2021-01-07] MEDS: Omeprazole 20 MG Cap.CR PO SCH ×2 (07:46→08:00)
[2021-01-07] MEDS: Acetaminophen/HYDROcodone 325-10 MG Tab PO SCH ×3 (07:46→17:47)
[2021-01-07] MEDS: Albuterol 0.083% 2.5 MG/3 ML Neb Soln INH SCH ×2 (07:55→21:06)
[2021-01-07] MEDS: Budesonide 0.5 MG/2 ML Neb Susp INH SCH ×2 (08:06→21:18)
[2021-01-07] MEDS: Benzonatate 100 MG Cap PO SCH ×3 (09:00→17:47)
[2021-01-07] MEDS: Cholecalciferol (Vitamin D3) 25 MCG Tab PO SCH (09:00)
[2021-01-07] MEDS: Cetirizine 10 MG Tab PO SCH (09:00)
[2021-01-07] MEDS: Carvedilol 6.25 MG Tab PO SCH ×3 (09:00→20:59)
[2021-01-07] MEDS: Insulin Aspart 100 Units/ML 3 ML Pen SUBCUT SCH ×4 (09:42→21:12)
--- NOTE | 2021-01-07 11:26 | PCM.PN ---
- General Info Date of Service: 01/07/21 Functional Status: Reports: Tolerating Diet (Patient is starting to eat lightly). Denies: Pain Controlled - Review of Systems General: Reports: Weakness, Other (Restless night, moaning however denies any pain, was quite alert last night PMs according to nurses. Was able to go outside in wheelchair yesterday however patient vacillates between drowsiness and alertness. Is able to tolerate slightly more appetite and able to take more of her oral pills. ). Denies: Fever HEENT: Reports: No Symptoms Pulmonary: Reports: Cough, Sputum. Denies: Shortness of Breath Cardiovascular: Denies: Chest Pain, Edema Gastrointestinal: Denies: Abdominal Pain, Constipation, Diarrhea, Nausea, Vomiting Genitourinary: Reports: No Symptoms Musculoskeletal: Reports: Other (General although patient moaning, tells family pain all over however informs nurses no pain) Skin: Reports: No Symptoms Neurological: Reports: Pre-Existing Deficit, Weakness. Denies: Numbness, Syncope Psychiatric: Reports: Agitation - Patient Data Vitals - Most Recent: Last Vital Signs Temp 96.8 F L 01/07/21 06:21 Pulse 96 01/07/21 06:21 Resp 24 H 01/07/21 06:21 BP 164/94 H 01/07/21 06:21 Pulse Ox 96 01/07/21 06:21 Weight - Most Recent: 120 lb I&O - Last 24 Hours: Intake & Output 01/06/21 01/07/21 01/07/21 22:59 06:59 14:59 Intake Total 1186 564 Output Total 150 Balance 1036 564 Lab Results Last 24 Hours: Laboratory Results - last 24 hr 01/06/21 01/06/21 01/06/21 Range/Units 07:25 11:42 13:22 WBC (5.00-10.00) 10^3/uL RBC (3.80-5.50) 10^6/uL Hgb (12.0-16.0) g/dL Hct (37.0-47.0) % MCV (82.0-92.0) fL MCH (27.0-31.0) pg MCHC (32.0-36.0) g/dL RDW (11.5-14.5) % Plt Count (150-400) 10^3/uL MPV (7.4-10.4) fL Immature Gran % (Auto) (0.0-5.0) % Neut % (Auto) (50.0-70.0) % Lymph % (Auto) (20.0-40.0) % Gilmer % (Auto) (2.0-8.0) % Eos % (Auto) (1.0-3.0) % Baso % (Auto) (0.0-1.0) % Neut # (Auto) (2.50-7.00) 10^3/uL Lymph # (Auto) (1.00-4.00) 10^3/uL Gilmer # (Auto) (0.10-0.80) 10^3/uL Eos # (Auto) (0.10-0.30) 10^3/uL Baso # (Auto) (0.00-0.10) 10^3/uL Immature Gran # (Auto) (0.00-0.50) 10^3/uL ESR 89 H (0-30) mm/hr POC Glucose 63 L 100 (74-106) mg/dl C-Reactive Protein (0.0-0.9) mg/dL 01/06/21 01/06/21 01/07/21 Range/Units 17:32 21:15 07:30 WBC (5.00-10.00) 10^3/uL RBC (3.80-5.50) 10^6/uL Hgb (12.0-16.0) g/dL Hct (37.0-47.0) % MCV (82.0-92.0) fL MCH (27.0-31.0) pg MCHC (32.0-36.0) g/dL RDW (11.5-14.5) % Plt Count (150-400) 10^3/uL MPV (7.4-10.4) fL Immature Gran % (Auto) (0.0-5.0) % Neut % (Auto) (50.0-70.0) % Lymph % (Auto) (20.0-40.0) % Gilmer % (Auto) (2.0-8.0) % Eos % (Auto) (1.0-3.0) % Baso % (Auto) (0.0-1.0) % Neut # (Auto) (2.50-7.00) 10^3/uL Lymph # (Auto) (1.00-4.00) 10^3/uL Gilmer # (Auto) (0.10-0.80) 10^3/uL Eos # (Auto) (0.10-0.30) 10^3/uL Baso # (Auto) (0.00-0.10) 10^3/uL Immature Gran # (Auto) (0.00-0.50) 10^3/uL ESR (0-30) mm/hr POC Glucose 97 124 H (74-106) mg/dl C-Reactive Protein > 11.0 H (0.0-0.9) mg/dL 01/07/21 01/07/21 Range/Units 07:30 07:37 WBC 7.69 (5.00-10.00) 10^3/uL RBC 3.20 L (3.80-5.50) 10^6/uL Hgb 10.0 L (12.0-16.0) g/dL Hct 31.9 L (37.0-47.0) % MCV 99.7 H D (82.0-92.0) fL MCH 31.3 H (27.0-31.0) pg MCHC 31.3 L (32.0-36.0) g/dL RDW 14.9 H (11.5-14.5) % Plt Count 305 (150-400) 10^3/uL MPV 8.2 (7.4-10.4) fL Immature Gran % (Auto) 0.7 (0.0-5.0) % Neut % (Auto) 78.7 H (50.0-70.0) % Lymph % (Auto) 6.5 L (20.0-40.0) % Gilmer % (Auto) 13.7 H (2.0-8.0) % Eos % (Auto) 0.4 L (1.0-3.0) % Baso % (Auto) 0.0 (0.0-1.0) % Neut # (Auto) 6.06 (2.50-7.00) 10^3/uL Lymph # (Auto) 0.50 L (1.00-4.00) 10^3/uL Gilmer # (Auto) 1.05 H (0.10-0.80) 10^3/uL Eos # (Auto) 0.03 L (0.10-0.30) 10^3/uL Baso # (Auto) 0.00 (0.00-0.10) 10^3/uL Immature Gran # (Auto) 0.05 (0.00-0.50) 10^3/uL ESR (0-30) mm/hr POC Glucose 174 H (74-106) mg/dl C-Reactive Protein (0.0-0.9) mg/dL Faisal Results Last 24 Hours: Microbiology 01/02/21 16:10 Respiratory Culture - Preliminary Sputum - Expectorated Pseudomonas Aeruginosa Gram Negative Rods Gram Stain - Final 01/02/21 08:30 Aerobic Blood Culture - Final Blood - Arm, Left NO GROWTH AFTER 5 DAYS Anaerobic Blood Culture - Final NO GROWTH AFTER 5 DAYS 01/02/21 08:15 Aerobic Blood Culture - Final Blood - Arm, Right NO GROWTH AFTER 5 DAYS Anaerobic Blood Culture - Final NO GROWTH AFTER 5 DAYS 01/02/21 11:00 Miscellaneous Reference Culture - Final Wound Gram Stain - Final Med Orders - Current: Current Medications Acetaminophen (Acetaminophen 650 Mg Tab.Er) 650 mg PO TID@0400,1200,2000 [facility] Last Admin: 01/07/21 03:09 Dose: 650 mg Documented by: Hydrocodone Bitart/Acetaminophen (Acetaminophen/Hydrocodone 325-10 Mg Tab) 1 tab PO 0000,0800,1600 [facility] Last Admin: 01/07/21 09:31 Dose: 1 tab Documented by: Hydrocodone Bitart/Acetaminophen (Acetaminophen/Hydrocodone 325-10 Mg Tab) 1 tab PO DAILY PRN PRN Reason: PAIN Albuterol (Albuterol 0.083% 2.5 Mg/3 Ml Neb Soln) 2.5 mg INH 0730,1930 [facility] Last Admin: 01/07/21 07:55 Dose: 2.5 mg Documented by: Benzonatate (Benzonatate 100 Mg Cap) 200 mg PO 0900,1300,1700 [facility] Last Admin: 01/06/21 17:40 Dose: Not Given Documented by: Benzonatate (Benzonatate 100 Mg Cap) 200 mg PO 2100 PRN PRN Reason: COUGH Last Admin: 01/06/21 21:42 Dose: 200 mg Documented by: Budesonide (Budesonide 0.5 Mg/2 Ml Neb Susp) 0.5 mg INH 0800,2000 [facility] Last Admin: 01/07/21 08:06 Dose: 0.5 mg Documented by: Buspirone HCl (Buspirone 10 Mg Tab) 5 mg PO 0900,1700 [facility] Last Admin: 01/06/21 17:40 Dose: Not Given Documented by: Carvedilol (Carvedilol 6.25 Mg Tab) 6.25 mg PO BID [facility] Cetirizine HCl (Cetirizine 10 Mg Tab) 10 mg PO DAILY [facility] Last Admin: 01/06/21 10:40 Dose: Not Given Documented by: Cholecalciferol (Cholecalciferol (Vitamin D3) 25 Mcg Tab) 50 mcg PO 0900 [facility] Last Admin: 01/06/21 10:40 Dose: Not Given Documented by: Cyanocobalamin (Cyanocobalamin (Vitamin B12) 500 Mcg Tab) 1,000 mcg PO DAILY@1300 [facility] Last Admin: 01/06/21 13:25 Dose: Not Given Documented by: Dextrose/Water (50% Dextrose In Water 50 Ml Syringe) 50 ml IV ASDIRECTED PRN PRN Reason: Hypoglycemia Last Admin: 01/06/21 11:48 Dose: 25 ml Documented by: Duloxetine HCl (Duloxetine 30 Mg Cap) 60 mg PO 2100 [facility] Last Admin: 01/06/21 20:38 Dose: Not Given Documented by: Famotidine (Famotidine 20 Mg Tab) 20 mg PO BEDTIME [facility] Last Admin: 01/06/21 20:38 Dose: Not Given Documented by: Gabapentin (Gabapentin 300 Mg Cap) 900 mg PO 1300,1700,2100 [facility] Last Admin: 01/06/21 20:38 Dose: Not Given Documented by: Glucagon (Glucagon,Human Recombinant 1 Mg Vial) 1 mg IM ASDIRECTED PRN PRN Reason: Hypoglycemia Hydroxychloroquine Sulfate (Hydroxychloroquine 200 Mg Tab) 200 mg PO 2100 [facility] Last Admin: 01/06/21 20:38 Dose: Not Given Documented by: Levofloxacin/Dextrose 250 mg/ (Premix) 50 mls @ 100 mls/hr IV Q24H [facility] Last Admin: 01/06/21 15:01 Dose: 100 mls/hr Documented by: Levofloxacin/Dextrose 500 mg/ (Premix) 100 mls @ 100 mls/hr IV Q24H [facility] Last Admin: 01/06/21 13:23 Dose: 100 mls/hr Documented by: Sodium Chloride (Normal Saline) 250 mls @ 25 mls/hr IV ASDIRECTED PRN PRN Reason: FLUSH BAG Last Admin: 01/05/21 22:52 Dose: 125 mls/hr Documented by: Cefepime HCl 2 gm/ Sodium (Chloride) 50 mls @ 100 mls/hr IV Q8H [facility] Last Admin: 01/07/21 06:11 Dose: 100 mls/hr Documented by: Dextrose/Water (Dextrose 5% In Water) 1,000 mls @ 70 mls/hr IV ASDIRECTED [facility] Last Admin: 01/07/21 06:11 Dose: 70 mls/hr Documented by: Insulin Aspart (Insulin Aspart 100 Units/Ml 3 Ml Pen) 0 unit SUBCUT WITHMEALSANDBED [facility]; Protocol Last Admin: 01/07/21 09:42 Dose: Not Given Documented by: Magnesium Hydroxide (Magnesium Hydroxide 400 Mg/5 Ml Susp 30 Ml Cup) 30 ml PO DAILY PRN PRN Reason: Constipation Magnesium Oxide (Magnesium Oxide 500 Mg Tab) 500 mg PO 1300 [facility] Last Admin: 01/06/21 13:26 Dose: Not Given Documented by: Azathioprine 50 Mg (Tablet - Ptom) 100 mg PO 0900,1700 [facility] Last Admin: 01/06/21 17:40 Dose: Not Given Documented by: Cranberry 900mg (Capsule - Ptom) 900 mg PO 2100 [facility] Last Admin: 01/06/21 20:38 Dose: Not Given Documented by: Fenofibrate 145 Mg (Tablet - Ptom) 145 mg PO 2100 [facility] Last Admin: 01/06/21 20:38 Dose: Not Given Documented by: Levemir (Insulin Detemir) 100 Unit/Ml Insulin Pen - Ptom 18 units SUBCUT 2000 [facility] Last Admin: 01/05/21 20:57 Dose: 18 units Documented by: Omeprazole (Omeprazole 20 Mg Cap.Cr) 20 mg PO ACBREAKFAST [facility] Last Admin: 01/06/21 06:43 Dose: Not Given Documented by: Prednisone (Prednisone 10 Mg Tab) 10 mg PO 1300 [facility] Last Admin: 01/06/21 13:25 Dose: Not Given Documented by: Sodium Chloride (Sodium Chloride 0.9% 10 Ml Syringe) 10 ml FLUSH Q8HR PRN PRN Reason: keep vein open Last Admin: 01/06/21 12:04 Dose: 10 ml Documented by: Triamcinolone Acetonide (Triamcinolone Acetonide 0.1% Crm 15 Gm Tube) 0 gm TOP BID PRN PRN Reason: Rash Trimethoprim/Sulfamethoxazole (Sulfamethoxazole/Trimethoprim 800-160 Mg Tab) 1 tab PO MoWeFr@1700 [facility] Last Admin: 01/04/21 17:40 Dose: 1 tab Documented by: Discontinued Medications Hydrocodone Bitart/Acetaminophen (Acetaminophen/Hydrocodone 325-10 Mg Tab) 1 tab PO 0000,0800,1600 [facility] Last Admin: 01/04/21 07:41 Dose: Not Given Documented by: Hydrocodone Bitart/Acetaminophen (Acetaminophen/Hydrocodone 325-10 Mg Tab) 1 tab PO DAILY PRN PRN Reason: PAIN Albuterol (Albuterol 0.083% 2.5 Mg/3 Ml Neb Soln) 2.5 mg INH 0730,1930 [facility] Last Admin: 01/04/21 06:33 Dose: 2.5 mg Documented by: Atropine Sulfate (Atropine 0.1 Mg/Ml 10 Ml Syringe) 0 mg IVPUSH ASDIRECTED PRN PRN Reason: Heart. Budesonide (Budesonide 0.5 Mg/2 Ml Neb Susp - Ptom) 0.5 mg INH 0800,2000 [facility] Last Admin: 01/04/21 07:29 Dose: 0.5 mg Documented by: Carvedilol (Carvedilol 6.25 Mg Tab) 3.125 mg PO BID [facility] Last Admin: 01/06/21 20:35 Dose: 3.125 mg Documented by: Epinephrine HCl (Epinephrine 1:10,000 1 Mg/10 Ml Syringe) 1 mg IVPUSH ASDIRECTED PRN PRN Reason: Heart. Gabapentin (Gabapentin 300 Mg Cap - Ptom) 900 mg PO 1300,1700,2100 [facility] Last Admin: 01/04/21 19:09 Dose: Not Given Documented by: Guaifenesin/Codeine Phosphate (Codeine/Guaifenesin 10-100 Mg/5 Ml Syrup 5 Ml Cup) 5 ml PO DAILY PRN PRN Reason: Cough Sodium Chloride (Normal Saline) 1,000 mls @ 50 mls/hr IV ASDIRECTED [facility] Last Admin: 01/04/21 09:39 Dose: 50 mls/hr Documented by: Cefepime HCl 2 gm/ Sodium (Chloride) 50 mls @ 100 mls/hr IV Q12H [facility] Dextrose/Water (Dextrose 5% In Water) Confirm Administered Dose 1,000 mls @ as directed .ROUTE .STK-MED ONE Stop: 01/06/21 11:53 Last Admin: 01/06/21 11:56 Dose: Not Given Documented by: Lidocaine HCl (Lidocaine 2% 100 Mg/5 Ml Syringe) 0 mg IVPUSH ASDIRECTED PRN PRN Reason: Heart. Magnesium Hydroxide (Magnesium Hydroxide 400 Mg/5 Ml Susp 30 Ml Cup) 30 ml PO BID [facility] Last Admin: 01/06/21 11:28 Dose: Not Given Documented by: Metoprolol Tartrate (Metoprolol Tartrate 5 Mg/5 Ml Sdv) 2.5 mg IVPUSH ONETIME ONE Stop: 01/02/21 09:24 Last Admin: 01/02/21 09:27 Dose: 2.5 mg Documented by: Metoprolol Tartrate (Metoprolol Tartrate 5 Mg/5 Ml Sdv) 5 mg IVPUSH ONETIME ONE Stop: 01/06/21 11:27 Last Admin: 01/06/21 11:58 Dose: 5 mg Documented by: Metoprolol Tartrate (Metoprolol Tartrate 5 Mg/5 Ml Sdv) 5 mg IVPUSH ONETIME ONE Stop: 01/06/21 21:24 Last Admin: 01/06/21 21:32 Dose: 5 mg Documented by: Metoprolol Tartrate (Metoprolol Tartrate 5 Mg/5 Ml Sdv) 5 mg IVPUSH ONETIME ONE Stop: 01/06/21 21:26 Last Admin: 01/06/21 21:44 Dose: 5 mg Documented by: Metoprolol Tartrate (Metoprolol Tartrate 5 Mg/5 Ml Sdv) 2.5 mg IVPUSH ASDIR ECTED PRN PRN Reason: Hypertension Stop: 01/07/21 07:30 Last Admin: 01/07/21 03:48 Dose: 2.5 mg Documented by: Nitroglycerin (Nitroglycerin 0.4 Mg Tab.Sl) 0.4 mg SL ASDIRECTED PRN PRN Reason: Heart. Benzonatate 100 Mg (Capsule - Ptom) 200 mg PO 0900,1200,1700 [facility] Buspirone 5 Mg (Tablet - Ptom) 5 mg PO 0900,1700 [facility] Last Admin: 01/04/21 09:37 Dose: 5 mg Documented by: Duloxetine 60mg (Capsule - Ptom) 1 each PO 2100 [facility] Last Admin: 01/03/21 21:18 Dose: 1 each Documented by: Hydroxychloroquine [ Plaquenil] 200 Mg Tablet - Ptom 200 mg PO 2100 [facility] Last Admin: 01/03/21 21:17 Dose: 200 mg Documented by: Pantoprazole Dr 20mg (Tablet - Ptom) 20 mg PO DAILY [facility] Last Admin: 01/04/21 09:37 Dose: 20 mg Documented by: Benzonatate 200 Mg (Capsule - Ptom) 200 mg PO 0900,1300,1700 [facility] Last Admin: 01/04/21 19:09 Dose: Not Given Documented by: Benzonatate 200mg (Cap - Ptom) 1 each PO 2100 PRN PRN Reason: COUGH Last Admin: 01/03/21 17:18 Dose: 1 each Documented by: Potassium Chloride (Potassium Chloride 20 Meq Tab.Er) 20 meq PO ONETIME ONE Stop: 01/04/21 13:21 Last Admin: 01/04/21 13:47 Dose: 20 meq Documented by: Prednisone (Prednisone 5 Mg Tab - Ptom) 10 mg PO 1300 [facility] Last Admin: 01/04/21 19:09 Dose: Not Given Documented by: Ramelteon (Ramelteon 8 Mg Tab) 8 mg PO BEDTIME [facility] Last Admin: 01/05/21 20:51 Dose: 8 mg Documented by: Trimethoprim/Sulfamethoxazole (Sulfamethoxazole/Trimethoprim 800-160 Mg Tab - Ptom) 1 tab PO MoWeFr [facility] Last Admin: 01/02/21 17:00 Dose: 1 tab Documented by: - Exam Quality Assessment: Supplemental Oxygen General: Mild Distress, Other (Patient moaning, will speak short words when spoken to, will open eyes spontaneously) Lungs: Rhonchi Cardiovascular: Regular Rate, Regular Rhythm GI/Abdominal Exam: Soft, No Distention (Female) Exam: Deferred Extremities: No Pedal Edema Peripheral Pulses: 2+: Radial (L), Radial (R) Skin: Cool Psy/Mental Status: Agitated - Patient Data Lab Results Last 24 hrs: Laboratory Results - last 24 hr 01/06/21 01/06/21 01/06/21 Range/Units 07:25 11:42 13:22 WBC (5.00-10.00) 10^3/uL RBC (3.80-5.50) 10^6/uL Hgb (12.0-16.0) g/dL Hct (37.0-47.0) % MCV (82.0-92.0) fL MCH (27.0-31.0) pg MCHC (32.0-36.0) g/dL RDW (11.5-14.5) % Plt Count (150-400) 10^3/uL MPV (7.4-10.4) fL Immature Gran % (Auto) (0.0-5.0) % Neut % (Auto) (50.0-70.0) % Lymph % (Auto) (20.0-40.0) % Gilmer % (Auto) (2.0-8.0) % Eos % (Auto) (1.0-3.0) % Baso % (Auto) (0.0-1.0) % Neut # (Auto) (2.50-7.00) 10^3/uL Lymph # (Auto) (1.00-4.00) 10^3/uL Gilmer # (Auto) (0.10-0.80) 10^3/uL Eos # (Auto) (0.10-0.30) 10^3/uL Baso # (Auto) (0.00-0.10) 10^3/uL Immature Gran # (Auto) (0.00-0.50) 10^3/uL ESR 89 H (0-30) mm/hr POC Glucose 63 L 100 (74-106) mg/dl C-Reactive Protein (0.0-0.9) mg/dL 01/06/21 01/06/21 01/07/21 Range/Units 17:32 21:15 07:30 WBC (5.00-10.00) 10^3/uL RBC (3.80-5.50) 10^6/uL Hgb (12.0-16.0) g/dL Hct (37.0-47.0) % MCV (82.0-92.0) fL MCH (27.0-31.0) pg MCHC (32.0-36.0) g/dL RDW (11.5-14.5) % Plt Count (150-400) 10^3/uL MPV (7.4-10.4) fL Immature Gran % (Auto) (0.0-5.0) % Neut % (Auto) (50.0-70.0) % Lymph % (Auto) (20.0-40.0) % Gilmer % (Auto) (2.0-8.0) % Eos % (Auto) (1.0-3.0) % Baso % (Auto) (0.0-1.0) % Neut # (Auto) (2.50-7.00) 10^3/uL Lymph # (Auto) (1.00-4.00) 10^3/uL Gilmer # (Auto) (0.10-0.80) 10^3/uL Eos # (Auto) (0.10-0.30) 10^3/uL Baso # (Auto) (0.00-0.10) 10^3/uL Immature Gran # (Auto) (0.00-0.50) 10^3/uL ESR (0-30) mm/hr POC Glucose 97 124 H (74-106) mg/dl C-Reactive Protein > 11.0 H (0.0-0.9) mg/dL 01/07/21 01/07/21 Range/Units 07:30 07:37 WBC 7.69 (5.00-10.00) 10^3/uL RBC 3.20 L (3.80-5.50) 10^6/uL Hgb 10.0 L (12.0-16.0) g/dL Hct 31.9 L (37.0-47.0) % MCV 99.7 H D (82.0-92.0) fL MCH 31.3 H (27.0-31.0) pg MCHC 31.3 L (32.0-36.0) g/dL RDW 14.9 H (11.5-14.5) % Plt Count 305 (150-400) 10^3/uL MPV 8.2 (7.4-10.4) fL Immature Gran % (Auto) 0.7 (0.0-5.0) % Neut % (Auto) 78.7 H (50.0-70.0) % Lymph % (Auto) 6.5 L (20.0-40.0) % Gilmer % (Auto) 13.7 H (2.0-8.0) % Eos % (Auto) 0.4 L (1.0-3.0) % Baso % (Auto) 0.0 (0.0-1.0) % Neut # (Auto) 6.06 (2.50-7.00) 10^3/uL Lymph # (Auto) 0.50 L (1.00-4.00) 10^3/uL Gilmer # (Auto) 1.05 H (0.10-0.80) 10^3/uL Eos # (Auto) 0.03 L (0.10-0.30) 10^3/uL Baso # (Auto) 0.00 (0.00-0.10) 10^3/uL Immature Gran # (Auto) 0.05 (0.00-0.50) 10^3/uL ESR (0-30) mm/hr POC Glucose 174 H (74-106) mg/dl C-Reactive Protein (0.0-0.9) mg/dL Result Diagrams: 01/07/21 07:30 01/06/21 07:25 Faisal Results Last 24 hrs: Microbiology 01/02/21 16:10 Respiratory Culture - Preliminary Sputum - Expectorated Pseudomonas Aeruginosa Gram Negative Rods Gram Stain - Final 01/02/21 08:30 Aerobic Blood Culture - Final Blood - Arm, Left NO GROWTH AFTER 5 DAYS Anaerobic Blood Culture - Final NO GROWTH AFTER 5 DAYS 01/02/21 08:15 Aerobic Blood Culture - Final Blood - Arm, Right NO GROWTH AFTER 5 DAYS Anaerobic Blood Culture - Final NO GROWTH AFTER 5 DAYS 01/02/21 11:00 Miscellaneous Reference Culture - Final Wound Gram Stain - Final Sepsis Event Note - Evaluation Sepsis Screening Result: No Definite Risk - Focused Exam Vital Signs: Vital Signs Temp Pulse Pulse Resp BP BP BP 01/07/21 06:21 96.8 F L 96 24 H 164/94 H 01/07/21 03:56 87 153/91 H 01/07/21 03:48 89 174/100 H 01/07/21 03:00 97.1 F 88 20 169/94 H 01/06/21 23:18 99 01/06/21 23:16 95 Pulse Ox Pulse Ox 01/07/21 06:21 96 01/07/21 03:56 01/07/21 03:48 01/07/21 03:00 99 01/06/21 23:18 97 01/06/21 23:16 94 L - Problem List Review Problem List Initiated/Reviewed/Updated: Yes - My Orders Last 24 Hours: My Active Orders 01/06/21 10:08 Magnesium Hydroxide [Milk of Magnesia] 30 ml PO DAILY PRN 01/06/21 10:10 RT Suction Oropharyngeal [RESPCARE] Routine 01/06/21 11:45 Dextrose 5% in Water 1,000 ml IV ASDIRECTED 01/07/21 09:09 carvediloL [Coreg] 6.25 mg PO BID - Plan Plan:: HPI summary: 80 year old female with known pulmonary fibrosis admitted to observation status from the [facility] ED department after presenting the AM of 01/02/2021 with increased confusion from baseline with noted weakness since one day prior to presentation. Family notes that she has had an increased cough. She did fall one day prior to presentation. It is unknown if there were inciting circumstances. Patient has fallen previously in the past. There were no known injuries from the fall. Family noted that in the morning she had increased confusion, had been incontinent of urine and was markedly weak where she was not helping with self care as usual. They brought her by private care to the hospital for evaluation. ED course: -VS: T98, P138, R33, BP 105/89, O2 sat 99% -Lab: WBC 7.43, Hgb 11.5 (baseline 12), Hct 37.9, RBC 3.68, neut 86.2, Na 139, K 4.3, Cl 96, CO2 32.2, anion gap 15.1, BUN 15, creatinine 0.43, GFR >60, glucose 197, lactic acid 2.4, Ca 9.5, LFT nl, CK 26, Ck-Mb <0.50, Troponin <0.017, total protein 8.3, albumin 3.09; COVID negative; blood cultures x 2 obtained -Urine: >1000 glucose, 40 ketones, small bili, negative leukocyte esterase, negative nitrites, occ hyaline casts, 0-5 RBC, 5-10 WBC, few epithelial cells and few bacteria. -Meds: metoprolol tartrate 2.5mg IVP for tachycardia, brought down to 120s -NS 125mL/hr -EKG: NSR, rate 141, p waves present, St-T wave depression -CXR: extensive bilateral infiltrates, apparently this is related to fibrosis, question of bilateral hilar adenopathy -CT head: No acute process -Admit obs/tele Hospital course: 01/02/2021: Patient in bed with daughter (Chasity) and son (Aquiles) present. She offers no complaints at this time. Nursing reports temp has gone up to 100.1 and patient is diaphoretic. Added procalcitonin, CRP (>11), magnesium (1.8) to labs. Patient is more short of breath and family reports she has been coughing more in the last 24-48 hours. Nursing reports sats had dipped to 70s and patient's oxygen had to be increased to 5L to maintain sat of 90%. Patient will be started on empiric antibiotic treatment at this time. Patient is immunocompromised and has risk factors for BRIGIDO, will be placed on levofloxacin 750mg daily IV and plan for de-escalation depending on response and cultures. 01/03/21: Cognitive status improved this morning, patient A/O x3. Afebrile, tachycardic this morning with heart rate 130s to 140s after nebulizer treatment; mildy diaphoretic. This improved to 120s without intervention. Denies chest pain. Repeat EKG indicates sinus tach with PACs. HR 128, WV 174ms, QRS 82ms, QTc 481. Trops negative x 2 yesterday. BC x2 NGTD. Patient at baseline respiratory status at 5L NC, denies dyspnea. Continues to have minimally productive cough. Lactic acid down to 1.1 today. Mild weakness persists, nursing will assist patient to increase physical activity today to determine readiness for discharge home. Daughter, January at bedside this morning. States patient typically uses a walker at home. She offers concerns regarding her mot her's depression when no family is present while hospitalized. Patient ambulating with walker and gait belt, minimal assist. Will plan to continue antibiotics upon discharge due to neutrophilia and known pulmonary disease. 01/04/21: Patient had an episode last evening of suspected mucous plugging of the airway with significant decrease in oxygen saturation in the 70's at rest and cyanosis. RN utilized oropharyngeal suctioning and removed the mucous plug from the airway with improvement. Patient experiencing significant hypoxia with minimal activity and increased weakness. Cough with increased sputum productivity. Low dose coreg 3.125mg BID started last night with improvement in heart rate to the 90s to low 100s as compared to 120s yesterday. Blood pressure stable. Patient remains afebrile. BC NGTD x2 days. Preliminary sputum gram stain indicates few gm - bacilli and rare PMN, final culture pending. Due to acute on chronic hypoxic respiratory failure and increased weakness, will change patient to inpatient status. Physical therapy eval and tx ordered this morning. Will continue IV levaquin as final respiratory culture in process. Daughter and son talking with social work this morning to determine possible discharge plans. Considering short swing bed stay if needed following inpatient stay if needed for additional therapy versus possible discharge to [facility] facility if patient's status does not return to prior baseline at home. Patient typically home during the day by herself much of the day prior to this admission. D/C'd telemetry. Saline locked as patient drinking adequate oral fluids. 01/05/2021; upon rounds daughter January bedside, patient appears calm with no shortness of breath however appears weak feels weak. At 4 L per nasal cannula, POX 97% withou tachypnea or tachycardia. Appears to be tolerating low- dose/selective Coreg. Independently reviewed chest x-ray, significant/extensive for diffuse fibrosis, dual antibiotics of respiratory- floroquinolone along newly added cefepime 01/06/2021; constipation resolved as patient had multiple bowel movements with milk of magnesia. Reduce to as needed. Had a good day yesterday however nurses reported some confusion and sedation this morning--nurses felt hypoglycemia with glucose of 70s, half of amp of D50 given. Prelimb respiratory culture probable pseudomonal aeruginsosa 01/07/2021; Restless night, moaning however denies any pain, was quite alert last night PMs according to nurses. Was able to go outside in wheelchair tersely yesterday however patient vacillates between drowsiness and alertness. Is able to tolerate slightly more appetite and able to take more of her oral pills. Needs improved blood pressure control, Coreg started upon admission. No increase in oxygen requirements, patient is refusing suctioning however appears to have the fair amount of ability for adequate health pulmonary toileting. Hospitalization problems and plan: --Deconditioning, weakness, quite profound, patient is too debilitated/weak to perform physical therapy --Chronic hypoxic respiratory failure with underlying severe pulmonary fibrosis -O2 to keep sat >90%, Oxygen at baseline. Added humidification. -Episode of cyanosis related to suspected mucous plugging, added humidification, PO fluids, will consider mucoactive agent if needed, Home accapella device, encourge cough and deep breathing --Bilateral lobe pneumonia, suspect - known colonization of pseudomonas -Final culture returned as gram-negative rods pseudomonas aeruginosa -Definitive coverage with levofloxacin 750mg IV daily, cefepime 2g Q8H, Trend ESR. -Holding bactrim at this time. --Heartburn/Acid reflux sx. Add H2 at bedtime, cont with am PPI Resolved problems -lactic acid 1.1 (01/03/21) -Blood cultures x2 - NGTD x 5 days -procalcitonin 0.55--equivocal, trend ESR -Elevated lactate -Hypokalemia, -Constipation Chronic, stable conditions: -Pulmonary fibrosis / ILD / Pseudomonas colonization: Pulmicort BID, prednisone 12.5mg daily, TMP-SMX DS daily MWF, benzonatate 200mg TID prn, albuterol HFA/neb prn. 03/09/2020 CT chest with extensive changes of fibrosis & honeycombing in the lung bases favoring UIP vs fibrosing NSIP. Sputum culture revealed normal f katelyn. Managed by Dr. Mcginnis, pulmonology. - Chronic hypoxic respiratory failure: 4-5lpm via nasal cannula continuously. Last oxygen evaluation 03/09/2020. - Pulmonary HTN: PASP 49mmHg on 12/17/19 echo. Likely type 3. Evaluated by cardiology 12/17/19 when catheterization was declined. - GERD / Dysphagia: Pantoprazole 40mg daily. Stable. - DMT2: Metformin XR 500mg TID (hold for now), Levemir 15un daily. - HLD: Fenofibrate 145mg daily. Will DC - B12 deficiency: takes B12 1000mcg daily - Mg deficiency: takes MgOx 500mg daily. - Calcium pyrophosphate deposition disease - RA: Azathioprine 100mg BID, hydroxychloroquine 200mg daily. Managed by Dr. Giraldo, rheumatology - Compression fracture / Osteopenia of multiple sites / Chronic prednisone use: Prolia every six months and Vitamin D 2000IU daily. Previously received Reclast and Forteo. - Chronic pain due to RA, idiopathic peripheral neuropathy, and compression fracture: [place] 5/325 BID, acetaminophen 975mg between [place] doses q4h during day, gabapentin 900mg TID, Rup rub prn. Miguel knee injections on 06/09/20 without subsequent help. - Recurrent falls / Deconditioning - Depression/Anxiety: takes Duloxetine 60mg daily, buspirone 5mg BID. - Memory loss - Allergic rhinitis: takes Cetirizine 10mg daily. Stable. - Dermatitis: Triamcinolone prn. 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 Misc. Medications: Cranberry 900mg daily. Hospitalization details: # FEN: Saline Lock IV today, ADA diet lactose free # PPX: teds # Code status: DNR/DNI, POLST signed/on file # Emergency contact: Chasity (daughter) updated at bedside Disposition/overall plan; --Patient qualifies for ongoing inpatient status to monitor the need for ongoing IV antibiotics, monitor oxygenation status, pulmonary secretions, --Trend ESR to guide antibiotic usage/de-escalation therapy --Discussion with Chasity and other sibling at bedside, patient not a good rehabilitative/swing bed choice given comorbidities, patient's condition and projection of illness. Discussion regarding palliative/comfort/home hospice care to focus more on ameliorating symptom burden. Family leaning Home Hospice Today: --Saline Lock IV fluids upon current bag completion, Encourage PO and record --Home use of Accapela device --Add morphine IVP PRN for breath through pain --Increase Coreg to 6.25 mg p.o. twice daily --Hospice referral today with SS consult --DC fenofibrate --Hold insulin
[2021-01-07] MEDS: AZATHIOPRINE 50 MG PO SCH ×2 (11:32→18:12)
[2021-01-07] MEDS: busPIRone 10 MG Tab PO SCH ×2 (11:33→18:21)
[2021-01-07] MEDS ORDERED: Albuterol 0.083% 2.5 MG/3 ML Neb Soln NEB ONE (11:48)
[2021-01-07] MEDS: Levofloxacin/Dextrose 5%-Water 500 MG in Premix Bag 1 BAG IV SCH (13:57)
[2021-01-07] MEDS: Morphine 2 MG/ML SYRINGE IVPUSH PRN ×2 (14:04→15:52)
[2021-01-07] MEDS: Magnesium Oxide 500 MG Tab PO SCH (14:10)
[2021-01-07] MEDS: predniSONE 10 MG Tab PO SCH (14:11)
[2021-01-07] MEDS: Gabapentin 300 MG Cap PO SCH ×4 (14:11→21:17)
[2021-01-07] MEDS: Cyanocobalamin (Vitamin B12) 500 MCG Tab PO SCH (14:12)
[2021-01-07] MEDS: Levofloxacin/Dextrose 5%-Water 250 MG in Premix Bag 1 BAG IV SCH (15:08)
[2021-01-07] MEDS ORDERED: Morphine 2 MG/ML SYRINGE IVPUSH SCH (17:00)
[2021-01-07] MEDS ORDERED: Morphine 2 MG/ML SYRINGE IVPUSH PRN (17:54)
[2021-01-07] MEDS: FENOFIBRATE 145 MG PO SCH (21:15)
[2021-01-07] MEDS: CRANBERRY 900 MG PO SCH (21:15)
[2021-01-07] MEDS: DULoxetine 30 MG Cap PO SCH (21:20)
[2021-01-07] MEDS: Famotidine 20 MG Tab PO SCH (21:20)
[2021-01-07] MEDS: Hydroxychloroquine 200 MG Tab PO SCH (21:49)
[2021-01-08] MEDS: Acetaminophen/HYDROcodone 325-10 MG Tab PO SCH ×4 (01:09→23:36)
[2021-01-08] MEDS: Acetaminophen 650 MG Tab.ER PO SCH ×3 (03:43→20:58)
[2021-01-08] MEDS: Cefepime 2 GM in Sodium Chloride 0.9% 50 ML IV SCH ×3 (05:58→23:24)
[2021-01-08] MEDS: Sodium Chloride 0.9% 250 ML IV PRN (05:58)
[2021-01-08] MEDS: Carvedilol 6.25 MG Tab PO SCH ×2 (07:59→20:53)
[2021-01-08] MEDS: AZATHIOPRINE 50 MG PO SCH ×2 (08:02→17:14)
[2021-01-08] MEDS: busPIRone 10 MG Tab PO SCH ×2 (08:06→17:31)
[2021-01-08] MEDS: Benzonatate 100 MG Cap PO SCH ×3 (08:06→17:31)
[2021-01-08] MEDS: Cetirizine 10 MG Tab PO SCH (08:06)
[2021-01-08] MEDS: Cholecalciferol (Vitamin D3) 25 MCG Tab PO SCH (08:06)
[2021-01-08] MEDS: Omeprazole 20 MG Cap.CR PO SCH (08:07)
[2021-01-08] MEDS: Insulin Aspart 100 Units/ML 3 ML Pen SUBCUT SCH ×4 (08:12→21:25)
[2021-01-08] MEDS: Albuterol 0.083% 2.5 MG/3 ML Neb Soln INH SCH ×2 (08:15→20:59)
[2021-01-08] MEDS: Budesonide 0.5 MG/2 ML Neb Susp INH SCH ×2 (08:16→21:18)
--- NOTE | 2021-01-08 11:12 | PCM.PN ---
- General Info Date of Service: 01/08/21 Functional Status: Reports: Pain Controlled, Tolerating Diet, Urinating - Review of Systems General: Reports: Weakness (improving weakness) HEENT: Reports: No Symptoms Pulmonary: Reports: Cough (periodic mucous plug, cough, however seems to be improving), Sputum Cardiovascular: Denies: Chest Pain, Palpitations Gastrointestinal: Denies: Abdominal Pain, Decreased Appetite, Diarrhea, Nausea Genitourinary: Reports: Incontinence. Denies: Burning, Pain Musculoskeletal: Denies: Joint Swelling (In her hands have resolved) Skin: Reports: Mottled (Nurses reported mottling of legs yesterday however resolved today) Neurological: Reports: Pre-Existing Deficit, Difficulty Walking, Weakness. Denies: Confusion, Dizziness Psychiatric: Denies: Confusion, Anxiety, Agitation - Patient Data Vitals - Most Recent: Last Vital Signs Temp 97.6 F 01/08/21 06:05 Pulse 98 01/08/21 07:59 Resp 20 01/08/21 06:05 BP 148/83 H 01/08/21 07:59 Pulse Ox 96 01/08/21 06:05 Weight - Most Recent: 120 lb I&O - Last 24 Hours: Intake & Output 01/07/21 01/08/21 01/08/21 22:59 06:59 14:59 Intake Total 1110 371 70 Balance 1110 371 70 Lab Results Last 24 Hours: Laboratory Results - last 24 hr 01/07/21 01/07/21 01/07/21 Range/Units 11:29 17:58 21:10 POC Glucose 215 H 198 H 206 H (74-106) mg/dl 01/08/21 01/08/21 Range/Units 07:39 10:43 POC Glucose 226 H 238 H (74-106) mg/dl Faisal Results Last 24 Hours: Microbiology 01/02/21 16:10 Respiratory Culture - Final Sputum - Expectorated Pseudomonas Aeruginosa Iso Consistent W Oral/Social Sciences Department Chair [place] Gram Stain - Final 01/02/21 08:30 Aerobic Blood Culture - Final Blood - Arm, Left NO GROWTH AFTER 5 DAYS Anaerobic Blood Culture - Final NO GROWTH AFTER 5 DAYS 01/02/21 08:15 Aerobic Blood Culture - Final Blood - Arm, Right NO GROWTH AFTER 5 DAYS Anaerobic Blood Culture - Final NO GROWTH AFTER 5 DAYS Med Orders - Current: Current Medications Acetaminophen (Acetaminophen 650 Mg Tab.Er) 650 mg PO TID@0400,1200,2000 [facility] Last Admin: 01/08/21 03:43 Dose: Not Given Documented by: Hydrocodone Bitart/Acetaminophen (Acetaminophen/Hydrocodone 325-10 Mg Tab) 1 tab PO 0000,0800,1600 [facility] Last Admin: 01/08/21 07:58 Dose: 1 tab Documented by: Hydrocodone Bitart/Acetaminophen (Acetaminophen/Hydrocodone 325-10 Mg Tab) 1 tab PO DAILY PRN PRN Reason: PAIN Albuterol (Albuterol 0.083% 2.5 Mg/3 Ml Neb Soln) 2.5 mg INH 0730,1930 [facility] Last Admin: 01/08/21 08:15 Dose: 2.5 mg Documented by: Benzonatate (Benzonatate 100 Mg Cap) 200 mg PO 0900,1300,1700 [facility] Last Admin: 01/08/21 08:06 Dose: Not Given Documented by: Benzonatate (Benzonatate 100 Mg Cap) 200 mg PO 2100 PRN PRN Reason: COUGH Last Admin: 01/06/21 21:42 Dose: 200 mg Documented by: Budesonide (Budesonide 0.5 Mg/2 Ml Neb Susp) 0.5 mg INH 0800,2000 [facility] Last Admin: 01/08/21 08:16 Dose: 0.5 mg Documented by: Buspirone HCl (Buspirone 10 Mg Tab) 5 mg PO 0900,1700 [facility] Last Admin: 01/08/21 08:06 Dose: Not Given Documented by: Carvedilol (Carvedilol 6.25 Mg Tab) 6.25 mg PO BID [facility] Last Admin: 01/08/21 07:59 Dose: 6.25 mg Documented by: Cetirizine HCl (Cetirizine 10 Mg Tab) 10 mg PO DAILY [facility] Last Admin: 01/08/21 08:06 Dose: Not Given Documented by: Cholecalciferol (Cholecalciferol (Vitamin D3) 25 Mcg Tab) 50 mcg PO 0900 [facility] Last Admin: 01/08/21 08:06 Dose: Not Given Documented by: Cyanocobalamin (Cyanocobalamin (Vitamin B12) 500 Mcg Tab) 1,000 mcg PO DAILY@1300 [facility] Last Admin: 01/07/21 14:12 Dose: Not Given Documented by: Dextrose/Water (50% Dextrose In Water 50 Ml Syringe) 50 ml IV ASDIRECTED PRN PRN Reason: Hypoglycemia Last Admin: 01/06/21 11:48 Dose: 25 ml Documented by: Duloxetine HCl (Duloxetine 30 Mg Cap) 60 mg PO 2100 [facility] Last Admin: 01/07/21 21:20 Dose: Not Given Documented by: Famotidine (Famotidine 20 Mg Tab) 20 mg PO BEDTIME [facility] Last Admin: 01/07/21 21:20 Dose: Not Given Documented by: Gabapentin (Gabapentin 300 Mg Cap) 900 mg PO 1300,1700,2100 [facility] Last Admin: 01/07/21 21:17 Dose: Not Given Documented by: Glucagon (Glucagon,Human Recombinant 1 Mg Vial) 1 mg IM ASDIRECTED PRN PRN Reason: Hypoglycemia Hydroxychloroquine Sulfate (Hydroxychloroquine 200 Mg Tab) 200 mg PO 2100 [facility] Last Admin: 01/07/21 21:49 Dose: Not Given Documented by: Levofloxacin/Dextrose 250 mg/ (Premix) 50 mls @ 100 mls/hr IV Q24H [facility] Last Admin: 01/07/21 15:08 Dose: 100 mls/hr Documented by: Levofloxacin/Dextrose 500 mg/ (Premix) 100 mls @ 100 mls/hr IV Q24H [facility] Last Admin: 01/07/21 13:57 Dose: 100 mls/hr Documented by: Sodium Chloride (Normal Saline) 250 mls @ 25 mls/hr IV ASDIRECTED PRN PRN Reason: FLUSH BAG Last Admin: 01/08/21 05:58 Dose: 100 mls/hr Documented by: Cefepime HCl 2 gm/ Sodium (Chloride) 50 mls @ 100 mls/hr IV Q8H [facility] Last Admin: 01/08/21 05:58 Dose: 100 mls/hr Documented by: Insulin Aspart (Insulin Aspart 100 Units/Ml 3 Ml Pen) 0 unit SUBCUT WITHMEALSANDBED [facility]; Protocol Last Admin: 01/08/21 08:12 Dose: 2 units Documented by: Magnesium Hydroxide (Magnesium Hydroxide 400 Mg/5 Ml Susp 30 Ml Cup) 30 ml PO DAILY PRN PRN Reason: Constipation Magnesium Oxide (Magnesium Oxide 500 Mg Tab) 500 mg PO 1300 [facility] Last Admin: 01/07/21 14:10 Dose: Not Given Documented by: Morphine Sulfate (Morphine 2 Mg/Ml Syringe) 1 mg IVPUSH Q2H PRN PRN Reason: Pain (moderate 4-6) Azathioprine 50 Mg (Tablet - Ptom) 100 mg PO 0900,1700 [facility] Last Admin: 01/08/21 08:02 Dose: 100 mg Documented by: Cranberry 900mg (Capsule - Ptom) 900 mg PO 2100 [facility] Last Admin: 01/07/21 21:15 Dose: Not Given Documented by: Fenofibrate 145 Mg (Tablet - Ptom) 145 mg PO 2100 [facility] Last Admin: 01/07/21 21:15 Dose: Not Given Documented by: Levemir (Insulin Detemir) 100 Unit/Ml Insulin Pen - Ptom 18 units SUBCUT 2000 [facility] Last Admin: 01/05/21 20:57 Dose: 18 units Documented by: Omeprazole (Omeprazole 20 Mg Cap.Cr) 20 mg PO ACBREAKFAST [facility] Last Admin: 01/08/21 08:07 Dose: Not Given Documented by: Prednisone (Prednisone 10 Mg Tab) 10 mg PO 1300 [facility] Last Admin: 01/07/21 14:11 Dose: Not Given Documented by: Sodium Chloride (Sodium Chloride 0.9% 10 Ml Syringe) 10 ml FLUSH Q8HR PRN PRN Reason: keep vein open Last Admin: 01/06/21 12:04 Dose: 10 ml Documented by: Triamcinolone Acetonide (Triamcinolone Acetonide 0.1% Crm 15 Gm Tube) 0 gm TOP BID PRN PRN Reason: Rash Trimethoprim/Sulfamethoxazole (Sulfamethoxazole/Trimethoprim 800-160 Mg Tab) 1 tab PO MoWeFr@1700 [facility] Last Admin: 01/04/21 17:40 Dose: 1 tab Documented by: Discontinued Medications Hydrocodone Bitart/Acetaminophen (Acetaminophen/Hydrocodone 325-10 Mg Tab) 1 tab PO 0000,0800,1600 [facility] Last Admin: 01/04/21 07:41 Dose: Not Given Documented by: Hydrocodone Bitart/Acetaminophen (Acetaminophen/Hydrocodone 325-10 Mg Tab) 1 tab PO DAILY PRN PRN Reason: PAIN Albuterol (Albuterol 0.083% 2.5 Mg/3 Ml Neb Soln) 2.5 mg INH 0730,1930 [facility] Last Admin: 01/04/21 06:33 Dose: 2.5 mg Documented by: Albuterol (Albuterol 0.083% 2.5 Mg/3 Ml Neb Soln) 2.5 mg NEB ONETIME ONE Stop: 01/07/21 11:49 Last Admin: 01/07/21 11:55 Dose: 2.5 mg Documented by: Atropine Sulfate (Atropine 0.1 Mg/Ml 10 Ml Syringe) 0 mg IVPUSH ASDIRECTED PRN PRN Reason: Heart. Budesonide (Budesonide 0.5 Mg/2 Ml Neb Susp - Ptom) 0.5 mg INH 0800,2000 [facility] Last Admin: 01/04/21 07:29 Dose: 0.5 mg Documented by: Carvedilol (Carvedilol 6.25 Mg Tab) 3.125 mg PO BID [facility] Last Admin: 01/07/21 09:00 Dose: Not Given Documented by: Epinephrine HCl (Epinephrine 1:10,000 1 Mg/10 Ml Syringe) 1 mg IVPUSH ASDIRECTED PRN PRN Reason: Heart. Gabapentin (Gabapentin 300 Mg Cap - Ptom) 900 mg PO 1300,1700,2100 [facility] Last Admin: 01/04/21 19:09 Dose: Not Given Documented by: Guaifenesin/Codeine Phosphate (Codeine/Guaifenesin 10-100 Mg/5 Ml Syrup 5 Ml Cup) 5 ml PO DAILY PRN PRN Reason: Cough Sodium Chloride (Normal Saline) 1,000 mls @ 50 mls/hr IV ASDIRECTED [facility] Last Admin: 01/04/21 09:39 Dose: 50 mls/hr Documented by: Cefepime HCl 2 gm/ Sodium (Chloride) 50 mls @ 100 mls/hr IV Q12H [facility] Dextrose/Water (Dextrose 5% In Water) 1,000 mls @ 70 mls/hr IV ASDIRECTED [facility] Last Admin: 01/07/21 06:11 Dose: 70 mls/hr Documented by: Dextrose/Water (Dextrose 5% In Water) Confirm Administered Dose 1,000 mls @ as directed .ROUTE .STK-MED ONE Stop: 01/06/21 11:53 Last Admin: 01/06/21 11:56 Dose: Not Given Documented by: Lidocaine HCl (Lidocaine 2% 100 Mg/5 Ml Syringe) 0 mg IVPUSH ASDIRECTED PRN PRN Reason: Heart. Magnesium Hydroxide (Magnesium Hydroxide 400 Mg/5 Ml Susp 30 Ml Cup) 30 ml PO BID [facility] Last Admin: 01/06/21 11:28 Dose: Not Given Documented by: Metoprolol Tartrate (Metoprolol Tartrate 5 Mg/5 Ml Sdv) 2.5 mg IVPUSH ONETIME ONE Stop: 01/02/21 09:24 Last Admin: 01/02/21 09:27 Dose: 2.5 mg Documented by: Metoprolol Tartrate (Metoprolol Tartrate 5 Mg/5 Ml Sdv) 5 mg IVPUSH ONETIME ONE Stop: 01/06/21 11:27 Last Admin: 01/06/21 11:58 Dose: 5 mg Documented by: Metoprolol Tartrate (Metoprolol Tartrate 5 Mg/5 Ml Sdv) 5 mg IVPUSH ONETIME ONE Stop: 01/06/21 21:24 Last Admin: 01/06/21 21:32 Dose: 5 mg Documented by: Metoprolol Tartrate (Metoprolol Tartrate 5 Mg/5 Ml Sdv) 5 mg IVPUSH ONETIME ONE Stop: 01/06/21 21:26 Last Admin: 01/06/21 21:44 Dose: 5 mg Documented by: Metoprolol Tartrate (Metoprolol Tartrate 5 Mg/5 Ml Sdv) 2.5 mg IVPUSH ASDIRECTED PRN PRN Reason: Hypertension Stop: 01/07/21 07:30 Last Admin: 01/07/21 03:48 Dose: 2.5 mg Documented by: Morphine Sulfate (Morphine 2 Mg/Ml Syringe) 0.5 mg IVPUSH Q2H PRN PRN Reason: Pain Last Admin: 01/07/21 15:52 Dose: 0.5 mg Documented by: Morphine Sulfate (Morphine 2 Mg/Ml Syringe) 1 mg IVPUSH Q2H [facility] Last Admin: 01/07/21 19:17 Dose: Not Given Documented by: Nitroglycerin (Nitroglycerin 0.4 Mg Tab.Sl) 0.4 mg SL ASDIRECTED PRN PRN Reason: Heart. Benzonatate 100 Mg (Capsule - Ptom) 200 mg PO 0900,1200,1700 [facility] Buspirone 5 Mg (Tablet - Ptom) 5 mg PO 0900,1700 [facility] Last Admin: 01/04/21 09:37 Dose: 5 mg Documented by: Duloxetine 60mg (Capsule - Ptom) 1 each PO 2100 [facility] Last Admin: 01/03/21 21:18 Dose: 1 each Documented by: Hydroxychloroquine [ Plaquenil] 200 Mg Tablet - Ptom 200 mg PO 2100 [facility] Last Admin: 01/03/21 21:17 Dose: 200 mg Documented by: Pantoprazole Dr 20mg (Tablet - Ptom) 20 mg PO DAILY [facility] Last Admin: 01/04/21 09:37 Dose: 20 mg Documented by: Benzonatate 200 Mg (Capsule - Ptom) 200 mg PO 0900,1300,1700 [facility] Last Admin: 01/04/21 19:09 Dose: Not Given Documented by: Benzonatate 200mg (Cap - Ptom) 1 each PO 2100 PRN PRN Reason: COUGH Last Admin: 01/03/21 17:18 Dose: 1 each Documented by: Potassium Chloride (Potassium Chloride 20 Meq Tab.Er) 20 meq PO ONETIME ONE Stop: 01/04/21 13:21 Last Admin: 01/04/21 13:47 Dose: 20 meq Documented by: Prednisone (Prednisone 5 Mg Tab - Ptom) 10 mg PO 1300 [facility] Last Admin: 01/04/21 19:09 Dose: Not Given Documented by: Ramelteon (Ramelteon 8 Mg Tab) 8 mg PO BEDTIME [facility] Last Admin: 01/05/21 20:51 Dose: 8 mg Documented by: Trimethoprim/Sulfamethoxazole (Sulfamethoxazole/Trimethoprim 800-160 Mg Tab - Ptom) 1 tab PO MoWeFr [facility] Last Admin: 01/02/21 17:00 Dose: 1 tab Documented by: - Exam Quality Assessment: Supplemental Oxygen General: Alert, Oriented, Cooperative, No Acute Distress Neck: No JVD Lungs: Rales, Rhonchi Cardiovascular: Regular Rate, Regular Rhythm GI/Abdominal Exam: Soft, Non-Tender, No Distention, No Mass. No: Guarding, Rigid, Rebound, Tender (Female) Exam: Deferred Extremities: No Pedal Edema, Other (Cool upper extremities warm lower extremities) Peripheral Pulses: 2+: Radial (L), 3+: Radial (R) Skin: Other (Cool upper extremities warm to lower extremities) Neurological: Normal Speech (laconic) Psy/Mental Status: Alert, Labile Mood. No: Anxious, Agitated, Hallucinations - Patient Data Lab Results Last 24 hrs: Laboratory Results - last 24 hr 01/07/21 01/07/21 01/07/21 Range/Units 11:29 17:58 21:10 POC Glucose 215 H 198 H 206 H (74-106) mg/dl 01/08/21 01/08/21 Range/Units 07:39 10:43 POC Glucose 226 H 238 H (74-106) mg/dl Result Diagrams: 01/07/21 07:30 01/06/21 07:25 Faisal Results Last 24 hrs: Microbiology 01/02/21 16:10 Respiratory Culture - Final Sputum - Expectorated Pseudomonas Aeruginosa Iso Consistent W Oral/Social Sciences Department Chair [place] Gram Stain - Final 01/02/21 08:30 Aerobic Blood Culture - Final Blood - Arm, Left NO GROWTH AFTER 5 DAYS Anaerobic Blood Culture - Final NO GROWTH AFTER 5 DAYS 01/02/21 08:15 Aerobic Blood Culture - Final Blood - Arm, Right NO GROWTH AFTER 5 DAYS Anaerobic Blood Culture - Final NO GROWTH AFTER 5 DAYS Sepsis Event Note - Evaluation Sepsis Screening Result: No Definite Risk - Focused Exam Vital Signs: Vital Signs Temp Pulse Pulse Resp BP BP BP 01/08/21 07:59 98 148/83 H 01/08/21 06:05 97.6 F 92 20 132/91 H 01/08/21 03:00 96.3 F L 90 20 124/74 Pulse Ox 01/08/21 07:59 01/08/21 06:05 96 01/08/21 03:00 98 - Problem List Review Problem List Initiated/Reviewed/Updated: Yes - My Orders Last 24 Hours: My Active Orders 01/07/21 17:54 Morphine 1 mg IVPUSH Q2H PRN - Plan Plan:: HPI summary: 80 year old female with known pulmonary fibrosis admitted to observation status from the [facility] ED department after presenting the AM of 01/02/2021 with increased confusion from baseline with noted weakness since one day prior to presentation. Family notes that she has had an increased cough. She did fall one day prior to presentation. It is unknown if there were inciting circumstances. Patient has fallen previously in the past. There were no known injuries from the fall. Family noted that in the morning she had increased confusion, had been incontinent of urine and was markedly weak where she was not helping with self care as usual. They brought her by private care to the hospital for evaluation. ED course: -VS: T98, P138, R33, BP 105/89, O2 sat 99% -Lab: WBC 7.43, Hgb 11.5 (baseline 12), Hct 37.9, RBC 3.68, neut 86.2, Na 139, K 4.3, Cl 96, CO2 32.2, anion gap 15.1, BUN 15, creatinine 0.43, GFR >60, glucose 197, lactic acid 2.4, Ca 9.5, LFT nl, CK 26, Ck-Mb <0.50, Troponin <0.017, total protein 8.3, albumin 3.09; COVID negative; blood cultures x 2 obtained -Urine: >1000 glucose, 40 ketones, small bili, negative leukocyte esterase, negative nitrites, occ hyaline casts, 0-5 RBC, 5-10 WBC, few epithelial cells and few bacteria. -Meds: metoprolol tartrate 2.5mg IVP for tachycardia, brought down to 120s -NS 125mL/hr -EKG: NSR, rate 141, p waves present, St-T wave depression -CXR: extensive bilateral infiltrates, apparently this is related to fibrosis, question of bilateral hilar adenopathy -CT head: No acute process -Admit obs/tele Hospital course: 01/02/2021: Patient in bed with daughter (January) and son (Aquiles) present. She offers no complaints at this time. Nursing reports temp has gone up to 100.1 and patient is diaphoretic. Added procalcitonin, CRP (>11), magnesium (1.8) to labs. Patient is more short of breath and family reports she has been coughing more in the last 24-48 hours. Nursing reports sats had dipped to 70s and patient's oxygen had to be increased to 5L to maintain sat of 90%. Patient will be started on empiric antibiotic treatment at this time. Patient is immunocompromised and has risk factors for BRIGIDO, will be placed on levofloxacin 750mg daily IV and plan for de-escalation depending on response and cultures. 01/03/21: Cognitive status improved this morning, patient A/O x3. Afebrile, tachycardic this morning with heart rate 130s to 140s after nebulizer treatment; mildy diaphoretic. This improved to 120s without intervention. Denies chest pain. Repeat EKG indicates sinus tach with PACs. HR 128, MI 174ms, QRS 82ms, QTc 481. Trops negative x 2 yesterday. BC x2 NGTD. Patient at baseline respiratory status at 5L NC, denies dyspnea. Continues to have minimally productive cough. Lactic acid down to 1.1 today. Mild weakness persists, nursing will assist patient to increase physical activity today to determine readiness for discharge home. Daughter, January at bedside this morning. States patient typically uses a walker at home. She offers concerns regarding her mother's depression when no family is present while hospitalized. Patient ambulating with walker and gait belt, minimal assist. Will plan to continue antibiotics upon discharge due to neutrophilia and known pulmonary disease. 01/04/21: Patient had an episode last evening of suspected mucous plugging of the airway with significant decrease in oxygen saturation in the 70's at rest and cyanosis. RN utilized oropharyngeal suctioning and removed the mucous plug from the airway with improvement. Patient experiencing significant hypoxia with minimal activity and increased weakness. Cough with increased sputum productivity. Low dose coreg 3.125mg BID started last night with improvement in heart rate to the 90s to low 100s as compared to 120s yesterday. Blood pressure stable. Patient remains afebrile. BC NGTD x2 days. Preliminary sputum gram st ain indicates few gm - bacilli and rare PMN, final culture pending. Due to acute on chronic hypoxic respiratory failure and increased weakness, will change patient to inpatient status. Physical therapy eval and tx ordered this morning. Will continue IV levaquin as final respiratory culture in process. Daughter and son talking with social work this morning to determine possible discharge plans. Considering short swing bed stay if needed following inpatient stay if needed for additional therapy versus possible discharge to correction facility if patient's status does not return to prior baseline at home. Patient typically home during the day by herself much of the day prior to this admission. D/C'd telemetry. Saline locked as patient drinking adequate oral fluids. 01/05/2021; upon rounds daughter January bedside, patient appears calm with no shortness of breath however appears weak feels weak. At 4 L per nasal cannula, POX 97% withou tachypnea or tachycardia. Appears to be tolerating low- dose/selective Coreg. Independently reviewed chest x-ray, significant/extensive for diffuse fibrosis, dual antibiotics of respiratory- floroquinolone along newly added cefepime 01/06/2021; constipation resolved as patient had multiple bowel movements with milk of magnesia. Reduce to as needed. Had a good day yesterday however nurses reported some confusion and sedation this morning--nurses felt hypoglycemia with glucose of 70s, half of amp of D50 given. Prelimb respiratory culture probable pseudomonal aeruginsosa 01/07/2021; Restless night, moaning however denies any pain, was quite alert last night PMs according to nurses. Was able to go outside in wheelchair tersely yesterday however patient vacillates between drowsiness and alertness. Is able to tolerate slightly more appetite and able to take more of her oral pills. Needs improved blood pressure control, Coreg started upon admission. No increase in oxygen requirements, patient is refusing suctioning however appears to have the fair amount of ability for adequate health pulmonary toileting. 01/08/2021; significant improvement in patient's cognition, alert status, agitation status, and ability to take medications and eat. With all this improvement patient is saying her goodbyes to all her children and makes verbal acknowledgment of her dying process/wishes. Added morphine yesterday with very good benefits. Able to take essential medicines, blood pressure improved, fever. Patient did have an episode yesterday of a cough with decreased saturations however was able to self-induced clearance. Blood cultures no growth, Hospitalization problems and plan: --Deconditioning, weakness, quite profound, due to profound pulmonary fibrosis outside of pulmonary rehabilitation patient is not a candidate for traditional physical therapy. Recommend upper extremity stretch-band exercises if tolerable. --Chronic hypoxic respiratory failure with underlying severe pulmonary fibrosis -O2 to keep sat >90%, Oxygen at baseline. -Periodic episodes of cyanosis related to suspected mucous plugging, Seems to be able to self-clear. Home accapella device, cough and deep breathing --Bilateral lobe pneumonia, known colonization of pseudomonas -Final culture returned as gram-negative rods pseudomonas aeruginosa -Definitive coverage with levofloxacin 750mg IV daily, cefepime 2g Q8H, Trend ESR. -Holding bactrim at this time. will DC cefepime in am. --Heartburn/Acid reflux sx. Improving sx. Added H2 at bedtime, cont with am PPI Resolved problems -lactic acid 1.1 (01/03/21) -Blood cultures x2 - NGTD x 5 days -procalcitonin 0.55--equivocal, trend ESR -Elevated lactate -Hypokalemia, -Constipation -Heartburn -Pain Chronic, stable conditions: -Pulmonary fibrosis / ILD / Pseudomonas colonization: Pulmicort BID, prednisone 12.5mg daily, TMP-SMX DS daily MWF, benzonatate 200mg TID prn, albuterol HFA/neb prn. 03/09/2020 CT chest with extensive changes of fibrosis & honeycombing in the lung bases favoring UIP vs fibrosing NSIP. Sputum culture revealed normal [place]. Managed by Dr. Mcginnis, pulmonology. - Chronic hypoxic respiratory failure: 4-5lpm via nasal cannula continuously. Last oxygen evaluation 03/09/2020. - Pulmonary HTN: PASP 49mmHg on 12/17/19 echo. Likely type 3. Evaluated by cardiology 12/17/19 when catheterization was declined. - GERD / Dysphagia: Pantoprazole 40mg daily. Added H2 bedtime for through acid reflux. - DMT2: Metformin XR 500mg TID (hold for now), Levemir 15un daily. - HLD: Fenofibrate 145mg daily. DC'd this admission - B12 deficiency: takes B12 1000mcg daily - Mg deficiency: takes MgOx 500mg daily. 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 Managed by Dr. Giraldo, rheumatology - Compression fracture / Osteopenia of multiple sites / Chronic prednisone use: Prolia every six months and Vitamin D 2000IU daily. Previously received Reclast and Forteo. - Chronic pain due to RA, idiopathic peripheral neuropathy, and compression fracture: [place] 5/325 BID, acetaminophen 975mg between [place] doses q4h during day, gabapentin 900mg TID, Rup rub prn. Miguel knee injections on 06/09/20 without subsequent help. - Recurrent falls / Deconditioning - Depression/Anxiety: Not taking this Admission, - Memory loss - Allergic rhinitis: takes Cetirizine 10mg daily. Stable. - Dermatitis: Triamcinolone prn. 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 Misc. Medications: Cranberry 900mg daily. DC this admission Hospitalization details: # FEN: Saline Lock, ADA diet lactose free # PPX: teds # Code status: DNR/DNI, POLST signed/on file # Emergency contact: Chasity (daughter) updated at bedside Disposition/overall plan; --Patient qualifies for ongoing inpatient status to monitor the need for ongoing IV antibiotics, monitor oxygenation status, pulmonary secretions, --Trend ESR to guide antibiotic usage/de-escalation therapy --Discussion with Chasity and other sibling at bedside, patient not a good rehabilitative/swing bed choice given comorbidities, patient's condition and projection of illness. Discussion regarding palliative/comfort/home hospice care to focus more on ameliorating symptom burden. Family desires home Hospice tomorrow. --Plan on Home Hospice tomorrow Medication changes/adjustments this admission to date Added -morphine -Coreg 6.25 mg p.o. twice daily -Famotidine 20 mg p.o. bedtime -MOM, PRN Discontinued -fenofibrate -Tessalon Perles -Buspar -cranberry -MVI/Calcium -Cymbalta -Duloxetine
[2021-01-08] MEDS: Levofloxacin/Dextrose 5%-Water 500 MG in Premix Bag 1 BAG IV SCH (12:38)
[2021-01-08] MEDS: Cyanocobalamin (Vitamin B12) 500 MCG Tab PO SCH (12:59)
[2021-01-08] MEDS: Magnesium Oxide 500 MG Tab PO SCH (12:59)
[2021-01-08] MEDS: Gabapentin 300 MG Cap PO SCH ×3 (13:05→20:56)
[2021-01-08] MEDS: predniSONE 10 MG Tab PO SCH (13:05)
[2021-01-08] MEDS: Levofloxacin/Dextrose 5%-Water 250 MG in Premix Bag 1 BAG IV SCH (13:48)
[2021-01-08] MEDS: Benzonatate 100 MG Cap PO PRN (20:54)
[2021-01-08] MEDS: Hydroxychloroquine 200 MG Tab PO SCH (20:57)
[2021-01-08] MEDS: Famotidine 20 MG Tab PO SCH (20:58)
[2021-01-08] MEDS: Sodium Chloride 0.9% 10 ML Syringe FLUSH PRN (23:24)
[2021-01-09] MEDS: Acetaminophen 650 MG Tab.ER PO SCH ×3 (03:59→21:33)
[2021-01-09] MEDS: Sodium Chloride 0.9% 10 ML Syringe FLUSH PRN (06:02)
[2021-01-09] MEDS: Sodium Chloride 0.9% 250 ML IV PRN (06:02)
[2021-01-09] MEDS: Cefepime 2 GM in Sodium Chloride 0.9% 50 ML IV SCH (06:02)
[2021-01-09] MEDS: Albuterol 0.083% 2.5 MG/3 ML Neb Soln INH SCH ×2 (07:23→20:49)
[2021-01-09] MEDS: Budesonide 0.5 MG/2 ML Neb Susp INH SCH ×2 (07:26→20:41)
[2021-01-09] MEDS: Acetaminophen/HYDROcodone 325-10 MG Tab PO SCH ×2 (08:05→16:50)
[2021-01-09] MEDS: Omeprazole 20 MG Cap.CR PO SCH (08:05)
[2021-01-09] MEDS: Cetirizine 10 MG Tab PO SCH (08:05)
[2021-01-09] MEDS: Cholecalciferol (Vitamin D3) 25 MCG Tab PO SCH (08:05)
[2021-01-09] MEDS: Carvedilol 6.25 MG Tab PO SCH ×2 (08:05→21:34)
[2021-01-09] MEDS: Insulin Aspart 100 Units/ML 3 ML Pen SUBCUT SCH ×5 (08:09→21:12)
[2021-01-09] MEDS: Benzonatate 100 MG Cap PO SCH ×3 (08:13→16:50)
[2021-01-09] MEDS: AZATHIOPRINE 50 MG PO SCH ×2 (08:14→16:52)
--- NOTE | 2021-01-09 10:20 | PCM.PN ---
- General Info Date of Service: 01/09/21 Functional Status: Reports: Pain Controlled, Tolerating Diet, Urinating. Denies: Ambulating, New Symptoms - Review of Systems General: Reports: Weakness HEENT: Reports: No Symptoms Pulmonary: Denies: Shortness of Breath, Cough, Sputum, Wheezing Cardiovascular: Denies: Edema Gastrointestinal: Reports: Difficulty Swallowing (improving in her swallowing). Denies: Abdominal Pain, Decreased Appetite Genitourinary: Reports: Incontinence Musculoskeletal: Reports: No Symptoms Skin: Reports: Pallor Neurological: Reports: Weakness. Denies: Confusion Psychiatric: Reports: Mood Lability. Denies: Confusion, Agitation - Patient Data Vitals - Most Recent: Last Vital Signs Temp 96.9 F 01/09/21 06:35 Pulse 73 01/09/21 08:05 Resp 16 01/09/21 06:35 BP 122/74 01/09/21 08:05 Pulse Ox 98 01/09/21 07:31 Weight - Most Recent: 120 lb I&O - Last 24 Hours: Intake & Output 01/08/21 01/09/21 01/09/21 22:59 06:59 14:59 Intake Total 410 90 Balance 410 90 Lab Results Last 24 Hours: Laboratory Results - last 24 hr 01/08/21 01/08/21 01/08/21 Range/Units 10:43 17:54 21:23 WBC (5.00-10.00) 10^3/uL RBC (3.80-5.50) 10^6/uL Hgb (12.0-16.0) g/dL Hct (37.0-47.0) % MCV (82.0-92.0) fL MCH (27.0-31.0) pg MCHC (32.0-36.0) g/dL RDW (11.5-14.5) % Plt Count (150-400) 10^3/uL MPV (7.4-10.4) fL Immature Gran % (Auto) (0.0-5.0) % Neut % (Auto) (50.0-70.0) % Lymph % (Auto) (20.0-40.0) % [place] % (Auto) (2.0-8.0) % Eos % (Auto) (1.0-3.0) % Baso % (Auto) (0.0-1.0) % Neut # (Auto) (2.50-7.00) 10^3/uL Lymph # (Auto) (1.00-4.00) 10^3/uL [place] # (Auto) (0.10-0.80) 10^3/uL Eos # (Auto) (0.10-0.30) 10^3/uL Baso # (Auto) (0.00-0.10) 10^3/uL Immature Gran # (Auto) (0.00-0.50) 10^3/uL POC Glucose 238 H 198 H 226 H (74-106) mg/dl C-Reactive Protein (0.0-0.9) mg/dL 01/09/21 01/09/21 01/09/21 Range/Units 07:17 07:20 07:20 WBC 6.53 (5.00-10.00) 10^3/uL RBC 3.21 L (3.80-5.50) 10^6/uL Hgb 9.8 L (12.0-16.0) g/dL Hct 31.4 L (37.0-47.0) % MCV 97.8 H (82.0-92.0) fL MCH 30.5 (27.0-31.0) pg MCHC 31.2 L (32.0-36.0) g/dL RDW 14.9 H (11.5-14.5) % Plt Count 307 (150-400) 10^3/uL MPV 8.2 (7.4-10.4) fL Immature Gran % (Auto) 0.6 (0.0-5.0) % Neut % (Auto) 76.5 H (50.0-70.0) % Lymph % (Auto) 8.6 L (20.0-40.0) % [place] % (Auto) 14.1 H (2.0-8.0) % Eos % (Auto) 0.2 L (1.0-3.0) % Baso % (Auto) 0.0 (0.0-1.0) % Neut # (Auto) 5.00 (2.50-7.00) 10^3/uL Lymph # (Auto) 0.56 L (1.00-4.00) 10^3/uL [place] # (Auto) 0.92 H (0.10-0.80) 10^3/uL Eos # (Auto) 0.01 L (0.10-0.30) 10^3/uL Baso # (Auto) 0.00 (0.00-0.10) 10^3/uL Immature Gran # (Auto) 0.04 (0.00-0.50) 10^3/uL POC Glucose 170 H (74-106) mg/dl C-Reactive Protein 6.5 H (0.0-0.9) mg/dL Faisal Results Last 24 Hours: Microbiology 01/02/21 16:10 Respiratory Culture - Final Sputum - Expectorated Pseudomonas Aeruginosa Iso Consistent W Oral/[employer] [place] Gram Stain - Final Med Orders - Current: Current Medications Acetaminophen (Acetaminophen 650 Mg Tab.Er) 650 mg PO TID@0400,1200,2000 [facility] Last Admin: 01/09/21 03:59 Dose: Not Given Documented by: Hydrocodone Bitart/Acetaminophen (Acetaminophen/Hydrocodone 325-10 Mg Tab) 1 tab PO 0000,0800,1600 [facility] Last Admin: 01/09/21 08:05 Dose: 1 tab Documented by: Hydrocodone Bitart/Acetaminophen (Acetaminophen/Hydrocodone 325-10 Mg Tab) 1 tab PO DAILY PRN PRN Reason: PAIN Albuterol (Albuterol 0.083% 2.5 Mg/3 Ml Neb Soln) 2.5 mg INH 0730,1930 [facility] Last Admin: 01/09/21 07:23 Dose: 2.5 mg Documented by: Benzonatate (Benzonatate 100 Mg Cap) 200 mg PO 0900,1300,1700 [facility] Last Admin: 01/09/21 08:13 Dose: 200 mg Documented by: Benzonatate (Benzonatate 100 Mg Cap) 200 mg PO 2100 PRN PRN Reason: COUGH Last Admin: 01/08/21 20:54 Dose: 200 mg Documented by: Budesonide (Budesonide 0.5 Mg/2 Ml Neb Susp) 0.5 mg INH 0800,1999 [facility] Last Admin: 01/09/21 07:26 Dose: 0.5 mg Documented by: Carvedilol (Carvedilol 6.25 Mg Tab) 6.25 mg PO BID [facility] Last Admin: 01/09/21 08:05 Dose: 6.25 mg Documented by: Cetirizine HCl (Cetirizine 10 Mg Tab) 10 mg PO DAILY [facility] Last Admin: 01/09/21 08:05 Dose: 10 mg Documented by: Cholecalciferol (Cholecalciferol (Vitamin D3) 25 Mcg Tab) 50 mcg PO 0900 [facility] Last Admin: 01/09/21 08:05 Dose: 50 mcg Documented by: Cyanocobalamin (Cyanocobalamin (Vitamin B12) 500 Mcg Tab) 1,000 mcg PO DAILY@1300 [facility] Last Admin: 01/08/21 12:59 Dose: Not Given Documented by: Dextrose/Water (50% Dextrose In Water 50 Ml Syringe) 50 ml IV ASDIRECTED PRN PRN Reason: Hypoglycemia Last Admin: 01/06/21 11:48 Dose: 25 ml Documented by: Famotidine (Famotidine 20 Mg Tab) 20 mg PO BEDTIME [facility] Last Admin: 01/08/21 20:58 Dose: 20 mg Documented by: Gabapentin (Gabapentin 300 Mg Cap) 900 mg PO 1300,1700,2100 [facility] Last Admin: 01/08/21 20:56 Dose: 900 mg Documented by: Glucagon (Glucagon,Human Recombinant 1 Mg Vial) 1 mg IM ASDIRECTED PRN PRN Reason: Hypoglycemia Hydroxychloroquine Sulfate (Hydroxychloroquine 200 Mg Tab) 200 mg PO 2100 [facility] Last Admin: 01/08/21 20:57 Dose: 200 mg Documented by: Levofloxacin/Dextrose 250 mg/ (Premix) 50 mls @ 100 mls/hr IV Q24H [facility] Last Admin: 01/08/21 13:48 Dose: 100 mls/hr Documented by: Levofloxacin/Dextrose 500 mg/ (Premix) 100 mls @ 100 mls/hr IV Q24H [facility] Last Admin: 01/08/21 12:38 Dose: 100 mls/hr Documented by: Sodium Chloride (Normal Saline) 250 mls @ 25 mls/hr IV ASDIRECTED PRN PRN Reason: FLUSH BAG Last Admin: 01/09/21 06:02 Dose: 100 mls/hr Documented by: Cefepime HCl 2 gm/ Sodium (Chloride) 50 mls @ 100 mls/hr IV Q8H [facility] Last Admin: 01/09/21 06:02 Dose: 100 mls/hr Documented by: Insulin Aspart (Insulin Aspart 100 Units/Ml 3 Ml Pen) 0 unit SUBCUT WITHMEALSANDBED [facility]; Protocol Last Admin: 01/09/21 08:09 Dose: 1 units Documented by: Magnesium Hydroxide (Magnesium Hydroxide 400 Mg/5 Ml Susp 30 Ml Cup) 30 ml PO DAILY PRN PRN Reason: Constipation Magnesium Oxide (Magnesium Oxide 500 Mg Tab) 500 mg PO 1300 [facility] Last Admin: 01/08/21 12:59 Dose: Not Given Documented by: Morphine Sulfate (Morphine 2 Mg/Ml Syringe) 1 mg IVPUSH Q2H PRN PRN Reason: Pain (moderate 4-6) Azathioprine 50 Mg (Tablet - Ptom) 100 mg PO 0900,1700 [facility] Last Admin: 01/09/21 08:14 Dose: 100 mg Documented by: Levemir (Insulin Detemir) 100 Unit/Ml Insulin Pen - Ptom 18 units SUBCUT 1999 [facility] Last Admin: 01/05/21 20:57 Dose: 18 units Documented by: Omeprazole (Omeprazole 20 Mg Cap.Cr) 20 mg PO ACBREAKFAST [facility] Last Admin: 01/09/21 08:05 Dose: 20 mg Documented by: Prednisone (Prednisone 10 Mg Tab) 10 mg PO 1300 [facility] Last Admin: 01/08/21 13:05 Dose: 10 mg Documented by: Sodium Chloride (Sodium Chloride 0.9% 10 Ml Syringe) 10 ml FLUSH Q8HR PRN PRN Reason: keep vein open Last Admin: 01/09/21 06:02 Dose: 10 ml Documented by: Triamcinolone Acetonide (Triamcinolone Acetonide 0.1% Crm 15 Gm Tube) 0 gm TOP BID PRN PRN Reason: Rash Trimethoprim/Sulfamethoxazole (Sulfamethoxazole/Trimethoprim 800-160 Mg Tab) 1 tab PO MoWeFr@1700 [facility] Last Admin: 01/04/21 17:40 Dose: 1 tab Documented by: Discontinued Medications Hydrocodone Bitart/Acetaminophen (Acetaminophen/Hydrocodone 325-10 Mg Tab) 1 tab PO 0000,0800,1600 [facility] Last Admin: 01/04/21 07:41 Dose: Not Given Documented by: Hydrocodone Bitart/Acetaminophen (Acetaminophen/Hydrocodone 325-10 Mg Tab) 1 tab PO DAILY PRN PRN Reason: PAIN Albuterol (Albuterol 0.083% 2.5 Mg/3 Ml Neb Soln) 2.5 mg INH 0730,1930 [facility] Last Admin: 01/04/21 06:33 Dose: 2.5 mg Documented by: Albuterol (Albuterol 0.083% 2.5 Mg/3 Ml Neb Soln) 2.5 mg NEB ONETIME ONE Stop: 01/07/21 11:49 Last Admin: 01/07/21 11:55 Dose: 2.5 mg Documented by: Atropine Sulfate (Atropine 0.1 Mg/Ml 10 Ml Syringe) 0 mg IVPUSH ASDIRECTED PRN PRN Reason: Heart. Budesonide (Budesonide 0.5 Mg/2 Ml Neb Susp - Ptom) 0.5 mg INH 0800,2000 [facility] Last Admin: 01/04/21 07:29 Dose: 0.5 mg Documented by: Buspirone HCl (Buspirone 10 Mg Tab) 5 mg PO 0900,1700 [facility] Last Admin: 01/08/21 17:31 Dose: Not Given Documented by: Carvedilol (Carvedilol 6.25 Mg Tab) 3.125 mg PO BID [facility] Last Admin: 01/07/21 09:00 Dose: Not Given Documented by: Duloxetine HCl (Duloxetine 30 Mg Cap) 60 mg PO 2100 [facility] Last Admin: 01/07/21 21:20 Dose: Not Given Documented by: Epinephrine HCl (Epinephrine 1:10,000 1 Mg/10 Ml Syringe) 1 mg IVPUSH ASDIRECTED PRN PRN Reason: Heart. Gabapentin (Gabapentin 300 Mg Cap - Ptom) 900 mg PO 1300,1700,2100 [facility] Last Admin: 01/04/21 19:09 Dose: Not Given Documented by: Guaifenesin/Codeine Phosphate (Codeine/Guaifenesin 10-100 Mg/5 Ml Syrup 5 Ml Cup) 5 ml PO DAILY PRN PRN Reason: Cough Sodium Chloride (Normal Saline) 1,000 mls @ 50 mls/hr IV ASDIRECTED [facility] Last Admin: 01/04/21 09:39 Dose: 50 mls/hr Documented by: Cefepime HCl 2 gm/ Sodium (Chloride) 50 mls @ 100 mls/hr IV Q12H [facility] Dextrose/Water (Dextrose 5% In Water) 1,000 mls @ 70 mls/hr IV ASDIRECTED [facility] Last Admin: 01/07/21 06:11 Dose: 70 mls/hr Documented by: Dextrose/Water (Dextrose 5% In Water) Confirm Administered Dose 1,000 mls @ as directed .ROUTE .STK-MED ONE Stop: 01/06/21 11:53 Last Admin: 01/06/21 11:56 Dose: Not Given Documented by: Lidocaine HCl (Lidocaine 2% 100 Mg/5 Ml Syringe) 0 mg IVPUSH ASDIRECTED PRN PRN Reason: Heart. Magnesium Hydroxide (Magnesium Hydroxide 400 Mg/5 Ml Susp 30 Ml Cup) 30 ml PO BID [facility] Last Admin: 01/06/21 11:28 Dose: Not Given Documented by: Metoprolol Tartrate (Metoprolol Tartrate 5 Mg/5 Ml Sdv) 2.5 mg IVPUSH ONETIME ONE Stop: 01/02/21 09:24 Last Admin: 01/02/21 09:27 Dose: 2.5 mg Documented by: Metoprolol Tartrate (Metoprolol Tartrate 5 Mg/5 Ml Sdv) 5 mg IVPUSH ONETIME ONE Stop: 01/06/21 11:27 Last Admin: 01/06/21 11:58 Dose: 5 mg Documented by: Metoprolol Tartrate (Metoprolol Tartrate 5 Mg/5 Ml Sdv) 5 mg IVPUSH ONETIME ONE Stop: 01/06/21 21:24 Last Admin: 01/06/21 21:32 Dose: 5 mg Documented by: Metoprolol Tartrate (Metoprolol Tartrate 5 Mg/5 Ml Sdv) 5 mg IVPUSH ONETIME ONE Stop: 01/06/21 21:26 Last Admin: 01/06/21 21:44 Dose: 5 mg Documented by: Metoprolol Tartrate (Metoprolol Tartrate 5 Mg/5 Ml Sdv) 2.5 mg IVPUSH ASDIRECTED PRN PRN Reason: Hypertension Stop: 01/07/21 07:30 Last Admin: 01/07/21 03:48 Dose: 2.5 mg Documented by: Morphine Sulfate (Morphine 2 Mg/Ml Syringe) 0.5 mg IVPUSH Q2H PRN PRN Reason: Pain Last Admin: 01/07/21 15:52 Dose: 0.5 mg Documented by: Morphine Sulfate (Morphine 2 Mg/Ml Syringe) 1 mg IVPUSH Q2H [facility] Last Admin: 01/07/21 19:17 Dose: Not Given Documented by: Nitroglycerin (Nitroglycerin 0.4 Mg Tab.Sl) 0.4 mg SL ASDIRECTED PRN PRN Reason: Heart. Benzonatate 100 Mg (Capsule - Ptom) 200 mg PO 0900,1200,1700 [facility] Buspirone 5 Mg (Tablet - Ptom) 5 mg PO 0900,1700 [facility] Last Admin: 01/04/21 09:37 Dose: 5 mg Documented by: Cranberry 900mg (Capsule - Ptom) 900 mg PO 2100 [facility] Last Admin: 01/07/21 21:15 Dose: Not Given Documented by: Duloxetine 60mg (Capsule - Ptom) 1 each PO 2100 [facility] Last Admin: 01/03/21 21:18 Dose: 1 each Documented by: Fenofibrate 145 Mg (Tablet - Ptom) 145 mg PO 2100 [facility] Last Admin: 01/07/21 21:15 Dose: Not Given Documented by: Hydroxychloroquine [ Plaquenil] 200 Mg Tablet - Ptom 200 mg PO 2100 [facility] Last Admin: 01/03/21 21:17 Dose: 200 mg Documented by: Pantoprazole Dr 20mg (Tablet - Ptom) 20 mg PO DAILY [facility] Last Admin: 01/04/21 09:37 Dose: 20 mg Documented by: Benzonatate 200 Mg (Capsule - Ptom) 200 mg PO 0900,1300,1700 [facility] Last Admin: 01/04/21 19:09 Dose: Not Given Documented by: Benzonatate 200mg (Cap - Ptom) 1 each PO 2100 PRN PRN Reason: COUGH Last Admin: 01/03/21 17:18 Dose: 1 each Documented by: Potassium Chloride (Potassium Chloride 20 Meq Tab.Er) 20 meq PO ONETIME ONE Stop: 01/04/21 13:21 Last Admin: 01/04/21 13:47 Dose: 20 meq Documented by: Prednisone (Prednisone 5 Mg Tab - Ptom) 10 mg PO 1300 [facility] Last Admin: 01/04/21 19:09 Dose: Not Given Documented by: Ramelteon (Ramelteon 8 Mg Tab) 8 mg PO BEDTIME [facility] Last Admin: 01/05/21 20:51 Dose: 8 mg Documented by: Trimethoprim/Sulfamethoxazole (Sulfamethoxazole/Trimethoprim 800-160 Mg Tab - Ptom) 1 tab PO MoWeFr [facility] Last Admin: 01/02/21 17:00 Dose: 1 tab Documented by: - Exam Quality Assessment: Supplemental Oxygen General: Alert, Oriented, Cooperative, No Acute Distress Lungs: Rhonchi Cardiovascular: Regular Rate, Regular Rhythm GI/Abdominal Exam: Normal Bowel Sounds, Soft (Female) Exam: Deferred Extremities: No Pedal Edema Peripheral Pulses: 2+: Radial (R), Femoral (L) Skin: Cool, Other (Cool upper extremities) Neurological: Sensation Intact, Other (alert, slightly sedated) Psy/Mental Status: Alert, Normal Affect, Labile Mood - Patient Data Lab Results Last 24 hrs: Laboratory Results - last 24 hr 01/08/21 01/08/21 01/08/21 Range/Units 10:43 17:54 21:23 WBC (5.00-10.00) 10^3/uL RBC (3.80-5.50) 10^6/uL Hgb (12.0-16.0) g/dL Hct (37.0-47.0) % MCV (82.0-92.0) fL MCH (27.0-31.0) pg MCHC (32.0-36.0) g/dL RDW (11.5-14.5) % Plt Count (150-400) 10^3/uL MPV (7.4-10.4) fL Immature Gran % (Auto) (0.0-5.0) % Neut % (Auto) (50.0-70.0) % Lymph % (Auto) (20.0-40.0) % [place] % (Auto) (2.0-8.0) % Eos % (Auto) (1.0-3.0) % Baso % (Auto) (0.0-1.0) % Neut # (Auto) (2.50-7.00) 10^3/uL Lymph # (Auto) (1.00-4.00) 10^3/uL [place] # (Auto) (0.10-0.80) 10^3/uL Eos # (Auto) (0.10-0.30) 10^3/uL Baso # (Auto) (0.00-0.10) 10^3/uL Immature Gran # (Auto) (0.00-0.50) 10^3/uL POC Glucose 238 H 198 H 226 H (74-106) mg/dl C-Reactive Protein (0.0-0.9) mg/dL 01/09/21 01/09/21 01/09/21 Range/Units 07:17 07:20 07:20 WBC 6.53 (5.00-10.00) 10^3/uL RBC 3.21 L (3.80-5.50) 10^6/uL Hgb 9.8 L (12.0-16.0) g/dL Hct 31.4 L (37.0-47.0) % MCV 97.8 H (82.0-92.0) fL MCH 30.5 (27.0-31.0) pg MCHC 31.2 L (32.0-36.0) g/dL RDW 14.9 H (11.5-14.5) % Plt Count 307 (150-400) 10^3/uL MPV 8.2 (7.4-10.4) fL Immature Gran % (Auto) 0.6 (0.0-5.0) % Neut % (Auto) 76.5 H (50.0-70.0) % Lymph % (Auto) 8.6 L (20.0-40.0) % [place] % (Auto) 14.1 H (2.0-8.0) % Eos % (Auto) 0.2 L (1.0-3.0) % Baso % (Auto) 0.0 (0.0-1.0) % Neut # (Auto) 5.00 (2.50-7.00) 10^3/uL Lymph # (Auto) 0.56 L (1.00-4.00) 10^3/uL [place] # (Auto) 0.92 H (0.10-0.80) 10^3/uL Eos # (Auto) 0.01 L (0.10-0.30) 10^3/uL Baso # (Auto) 0.00 (0.00-0.10) 10^3/uL Immature Gran # (Auto) 0.04 (0.00-0.50) 10^3/uL POC Glucose 170 H (74-106) mg/dl C-Reactive Protein 6.5 H (0.0-0.9) mg/dL Result Diagrams: 01/09/21 07:20 01/06/21 07:25 Faisal Results Last 24 hrs: Microbiology 01/02/21 16:10 Respiratory Culture - Final Sputum - Expectorated Pseudomonas Aeruginosa Iso Consistent W Oral/[employer] [place] Gram Stain - Final Sepsis Event Note - Evaluation Sepsis Screening Result: No Definite Risk - Focused Exam Vital Signs: Vital Signs Temp Pulse Pulse Resp BP BP Pulse Ox 01/09/21 08:05 73 122/74 01/09/21 07:31 78 01/09/21 07:23 77 01/09/21 06:35 96.9 F 67 16 108/56 L 100 01/09/21 03:00 96.7 F L 72 20 150/56 H 100 01/08/21 23:23 96.1 F L 64 16 93/55 L 100 Pulse Ox 01/09/21 08:05 01/09/21 07:31 98 01/09/21 07:23 94 L 01/09/21 06:35 01/09/21 03:00 01/08/21 23:23 - Problem List Review Problem List Initiated/Reviewed/Updated: Yes - Plan Plan:: HPI summary: 80 year old female with known pulmonary fibrosis admitted to observation status from the [facility] ED department after presenting the AM of 01/02/2021 with increased confusion from baseline with noted weakness since one day prior to presentation. Family notes that she has had an increased cough. She did fall one day prior to presentation. It is unknown if there were inciting circumstances. Patient has fallen previously in the past. There were no known injuries from the fall. Family noted that in the morning she had increased confusion, had been incontinent of urine and was markedly weak where she was not helping with self care as usual. They brought her by private care to the hospital for evaluation. ED course: -VS: T98, P138, R33, BP 105/89, O2 sat 99% -Lab: WBC 7.43, Hgb 11.5 (baseline 12), Hct 37.9, RBC 3.68, neut 86.2, Na 139, K 4.3, Cl 96, CO2 32.2, anion gap 15.1, BUN 15, creatinine 0.43, GFR >60, glucose 197, lactic acid 2.4, Ca 9.5, LFT nl, CK 26, Ck-Mb <0.50, Troponin <0.017, total protein 8.3, albumin 3.09; COVID negative; blood cultures x 2 obtained -Urine: >1000 glucose, 40 ketones, small bili, negative leukocyte esterase, negative nitrites, occ hyaline casts, 0-5 RBC, 5-10 WBC, few epithelial cells and few bacteria. -Meds: metoprolol tartrate 2.5mg IVP for tachycardia, brought down to 120s -NS 125mL/hr -EKG: NSR, rate 141, p waves present, St-T wave depression -CXR: extensive bilateral infiltrates, apparently this is related to fibrosis, question of bilateral hilar adenopathy -CT head: No acute process -Admit obs/tele Hospital course: 01/02/2021: Patient in bed with daughter (Chasity) and son (Aquiles) present. She offers no complaints at this time. Nursing reports temp has gone up to 100.1 and patient is diaphoretic. Added procalcitonin, CRP (>11), magnesium (1.8) to labs. Patient is more short of breath and family reports she has been coughing more in the last 24-48 hours. Nursing reports sats had dipped to 70s and patient's oxygen had to be increased to 5L to maintain sat of 90%. Patient will be started on empiric antibiotic treatment at this time. Patient is immunocompromised and has risk factors for BRIGIDO, will be placed on levofloxacin 750mg daily IV and plan for de-escalation depending on response and cultures. 01/03/21: Cognitive status improved this morning, patient A/O x3. Afebrile, tachycardic this morning with heart rate 130s to 140s after nebulizer treatment; mildy diaphoretic. This improved to 120s without intervention. Denies chest pain. Repeat EKG indicates sinus tach with PACs. HR 128, IL 174ms, QRS 82ms, QTc 481. Trops negative x 2 yesterday. BC x2 NGTD. Patient at baseline respiratory status at 5L NC, denies dyspnea. Continues to have minimally productive cough. Lactic acid down to 1.1 today. Mild weakness persists, nursing will assist patient to increase physical activity today to determine readiness for discharge home. Daughter, January at bedside this morning. States patient typically uses a walker at home. She offers concerns regarding her mother's depression when no family is present while hospitalized. Patient ambulating with walker and gait belt, minimal assist. Will plan to continue an tibiotics upon discharge due to neutrophilia and known pulmonary disease. 01/04/21: Patient had an episode last evening of suspected mucous plugging of the airway with significant decrease in oxygen saturation in the 70's at rest and cyanosis. RN utilized oropharyngeal suctioning and removed the mucous plug from the airway with improvement. Patient experiencing significant hypoxia with minimal activity and increased weakness. Cough with increased sputum productivity. Low dose coreg 3.125mg BID started last night with improvement in heart rate to the 90s to low 100s as compared to 120s yesterday. Blood pressure stable. Patient remains afebrile. BC NGTD x2 days. Preliminary sputum gram stain indicates few gm - bacilli and rare PMN, final culture pending. Due to acute on chronic hypoxic respiratory failure and increased weakness, will change patient to inpatient status. Physical therapy eval and tx ordered this morning. Will continue IV levaquin as final respiratory culture in process. Daughter and son talking with social work this morning to determine possible discharge p lans. Considering short swing bed stay if needed following inpatient stay if needed for additional therapy versus possible discharge to penitentiary facility if patient's status does not return to prior baseline at home. Patient typically home during the day by herself much of the day prior to this admission. D/C'd telemetry. Saline locked as patient drinking adequate oral fluids. 01/05/2021; upon rounds daughter January bedside, patient appears calm with no shortness of breath however appears weak feels weak. At 4 L per nasal cannula, POX 97% withou tachypnea or tachycardia. Appears to be tolerating low- dose/selective Coreg. Independently reviewed chest x-ray, significant/extensive for diffuse fibrosis, dual antibiotics of respiratory- floroquinolone along newly added cefepime 01/06/2021; constipation resolved as patient had multiple bowel movements with milk of magnesia. Reduce to as needed. Had a good day yesterday however nurses reported some confusion and sedation this morning--nurses felt hypoglycemia with glucose of 70s, half of amp of D50 given. Prelimb respiratory culture probable pseudomonal aeruginsosa 01/07/2021; Restless night, moaning however denies any pain, was quite alert last night PMs according to nurses. Was able to go outside in wheelchair tersely yesterday however patient vacillates between drowsiness and alertness. Is able to tolerate slightly more appetite and able to take more of her oral pills. Needs improved blood pressure control, Coreg started upon admission. No increase in oxygen requirements, patient is refusing suctioning however appears to have the fair amount of ability for adequate health pulmonary toileting. 01/08/2021; significant improvement in patient's cognition, alert status, agitation status, and ability to take medications and eat. With all this improvement patient is saying her goodbyes to all her children and makes verbal acknowledgment of her dying process/wishes. Added morphine yesterday with very good benefits. Able to take essential medicines, blood pressure improved, fever. Patient did have an episode yesterday of a cough with decreased saturations however was able to self-induced clearance. Blood cultures no growth, 01/09/2021; no overnight calls or concerns, patient slept well, ongoing im provement in patient's cognition, alert status and intake of p.o. fluids. Many of her nonessential medications were discontinued yesterday. Appears morphine has great benefit in her breathing, overall pain, without excessive sedation. Has not needed morphine past 24 hours. ESR trending favorably, no more mucus, much less of a cough, likely now at her baseline of her pulmonary fibrosis status. Hospitalization problems and plan: --Deconditioning, weakness, quite profound, due to profound pulmonary fibrosis outside of pulmonary rehabilitation patient is not a candidate for traditional physical therapy. Recommend upper extremity stretch-band exercises if tolerable . --Chronic hypoxic respiratory failure with underlying severe pulmonary fibrosis -O2 to keep sat >90%, Oxygen at baseline. -Periodic episodes of cyanosis related to suspected mucous plugging, Seems to be able to self-clear. Home accapella device, cough and deep breathing --Bilateral lobe pneumonia, known colonization of pseudomonas -Final culture returned as gram-negative rods pseudomonas aeruginosa -Definitive coverage with levofloxacin 750mg IV daily, discontinue cefepime -Holding bactrim at this time. will DC cefepime in am. --Heartburn/Acid reflux sx. Improving sx. Added H2 at bedtime, cont with am PPI Resolved problems -lactic acid 1.1 (01/03/21) -Blood cultures x2 - NGTD x 5 days -procalcitonin 0.55--equivocal, trend ESR -Elevated lactate -Hypokalemia, -Constipation -Heartburn -Pain Chronic, stable conditions: -Pulmonary fibrosis / ILD / Pseudomonas colonization: Pulmicort BID, prednisone 12.5mg daily, TMP-SMX DS daily MWF, benzonatate 200mg TID prn, albuterol HFA/neb prn. 03/09/2020 CT chest with extensive changes of fibrosis & honeycombing in the lung bases favoring UIP vs fibrosing NSIP. Sputum culture revealed normal [place]. Managed by Dr. Mcginnis, pulmonology. - Chronic hypoxic respiratory failure: 4-5lpm via nasal cannula continuously. Last oxygen evaluation 03/09/2020. - Pulmonary HTN: PASP 49mmHg on 12/17/19 echo. Likely type 3. Evaluated by cardiology 12/17/19 when catheterization was declined. - GERD / Dysphagia: Pantoprazole 40mg daily. Added H2 bedtime for through acid reflux. - DMT2: Metformin XR 500mg TID (hold for now), Levemir 15un daily. - HLD: Fenofibrate 145mg daily. DC'd this admission - B12 deficiency: takes B12 1000mcg daily - Mg deficiency: takes MgOx 500mg daily. 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 Managed by Dr. Giraldo, rheumatology - Compression fracture / Osteopenia of multiple sites / Chronic prednisone use: Prolia every six months and Vitamin D 2000IU daily. Previously received Reclast and Forteo. - Chronic pain due to RA, idiopathic peripheral neuropathy, and compression fracture: Jemison 5/325 BID, acetaminophen 975mg between Jemison doses q4h during day, gabapentin 900mg TID, Rup rub prn. Miguel knee injections on 06/09/20 without subsequent help. - Recurrent falls / Deconditioning - Depression/Anxiety: Not taking this Admission, - Memory loss - Allergic rhinitis: takes Cetirizine 10mg daily. Stable. - Dermatitis: Triamcinolone prn. 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 Misc. Medications: Cranberry 900mg daily. DC this admission Hospitalization details: # FEN: Saline Lock, ADA diet lactose free # PPX: teds # Code status: DNR/DNI, POLST signed/on file # Emergency contact: January (daughter) updated at bedside Disposition/overall plan; --Patient qualifies for ongoing inpatient status to monitor the need for ongoing IV antibiotics, monitor oxygenation status, pulmonary secretions. --No more labs necessary. --Discontinue cefepime, continue levofloxacin --Discussion with Chasity and other sibling at bedside, patient not a good rehabilitative/swing bed choice given comorbidities, patient's condition and projection of illness. Discussion regarding palliative/comfort/home hospice care to focus more on ameliorating symptom burden. Family desires home Hospice tomorrow, waiting on hospice bed Medication changes/adjustments this admission to date Added -morphine -Coreg 6.25 mg p.o. twice daily -Famotidine 20 mg p.o. bedtime -MOM, PRN Discontinued this admission -fenofibrate -Buspar -cranberry -MVI/Calcium -Cymbalta -Duloxetine Today --discontinue cefepime
[2021-01-09] MEDS: Levofloxacin/Dextrose 5%-Water 500 MG in Premix Bag 1 BAG IV SCH (12:22)
[2021-01-09] MEDS: Cyanocobalamin (Vitamin B12) 500 MCG Tab PO SCH (12:33)
[2021-01-09] MEDS: Magnesium Oxide 500 MG Tab PO SCH (12:33)
[2021-01-09] MEDS: predniSONE 10 MG Tab PO SCH (12:33)
[2021-01-09] MEDS: Gabapentin 300 MG Cap PO SCH ×3 (12:41→21:33)
[2021-01-09] MEDS: Levofloxacin/Dextrose 5%-Water 250 MG in Premix Bag 1 BAG IV SCH (13:26)
[2021-01-09] MEDS: LEVEMIR INSULIN SUBCUT SCH (20:50)
[2021-01-09] MEDS: Famotidine 20 MG Tab PO SCH (21:33)
[2021-01-09] MEDS: Hydroxychloroquine 200 MG Tab PO SCH (21:33)
[2021-01-10] MEDS: Acetaminophen/HYDROcodone 325-10 MG Tab PO SCH ×2 (01:28→08:34)
[2021-01-10] MEDS: Omeprazole 20 MG Cap.CR PO SCH ×2 (06:12→07:08)
[2021-01-10] MEDS: Albuterol 0.083% 2.5 MG/3 ML Neb Soln INH SCH ×2 (06:13→07:08)
[2021-01-10] MEDS: Acetaminophen 650 MG Tab.ER PO SCH (07:08)
[2021-01-10] MEDS: Cetirizine 10 MG Tab PO SCH (08:34)
[2021-01-10] MEDS: Budesonide 0.5 MG/2 ML Neb Susp INH SCH (08:34)
[2021-01-10] MEDS: Cholecalciferol (Vitamin D3) 25 MCG Tab PO SCH (08:34)
[2021-01-10] MEDS: Benzonatate 100 MG Cap PO SCH (08:35)
[2021-01-10] MEDS: Carvedilol 6.25 MG Tab PO SCH (08:35)
[2021-01-10] MEDS: AZATHIOPRINE 50 MG PO SCH (08:36)
[2021-01-10] MEDS: Insulin Aspart 100 Units/ML 3 ML Pen SUBCUT SCH (08:37)
[2021-01-10 09:06] VITALS: PULSE 72
[2021-01-10] MEDS: Levofloxacin/Dextrose 5%-Water 500 MG in Premix Bag 1 BAG IV SCH (09:53)
--- NOTE | 2021-01-10 10:12 | PCM.DCSUM1 ---
Discharge Summary - Hospital Course Diagnosis: Stroke: No - Discharge Data Discharge Date: 01/10/21 Discharge Disposition: DC/Tfer to Hospice - Home 51 Condition: Fair - Referral to Home Health Primary Care Physician: Juany Roman MD - Patient Summary/Data Consults: Consultations 01/04/21 10:04 PT Evaluation and Treatment [CONS] Routine 01/04/21 11:51 Consult to Case Management/Mirror Silverer [CONS] Routine - Patient Instructions Diet: Diabetic Diet Activity: As Tolerated, Cough & Deep Breathe Driving: Do Not Drive Showering/Bathing: May Shower Notify Provider of: Fever, Increased Pain, Nausea and/or Vomiting - Discharge Plan *PRESCRIPTION DRUG MONITORING PROGRAM REVIEWED*: Not Applicable *COPY OF PRESCRIPTION DRUG MONITORING REPORT IN PATIENT LETTY: Not Applicable Prescriptions/Med Rec: carvediloL [Coreg] 6.25 mg PO BID #60 tablet levoFLOXacin [Levaquin] 750 mg PO DAILY 3 Days #3 tab Famotidine [Pepcid] 20 mg PO BEDTIME #30 tablet Home Medications: Home Meds Benzonatate [Tessalon Perle] 200 mg PO 0900,1300,1700 12/19/16 [History] Hydroxychloroquine [Plaquenil] 200 mg PO 2100 12/19/16 [History] predniSONE 10 mg PO 1300 12/19/16 [History] Acetaminophen [Acetaminophen ER] 650 mg PO 0400,1200,199910/31/17 [History] Cholecalciferol (Vitamin D3) [Vitamin D3] 2,000 unit PO 0900 10/31/17 [History] azaTHIOprine [Imuran] 50 mg PO 0900,1700 01/23/18 [History] Albuterol Sulfate 2.5 mg NEB 0730,1930 03/20/18 [History] Magnesium Oxide [Magnesium] 500 mg PO 1300 03/20/18 [History] Budesonide [Pulmicort] 0.5 mg INH 08,199905/15/18 [History] Cyanocobalamin (Vitamin B-12) [Vitamin B-12] 1,000 mcg PO DAILY@1300 05/15/18 [History] metFORMIN HCl [Metformin ER Osmotic] 500 mg PO 0900,1300,1700 05/15/18 [History] Triamcinolone Acetonide [Triamcinolone Acetonide 0.1% Crm] 1 applic TOP BID PRN 09/05/18 [History] Albuterol [Proventil Neb Soln] 2.5 mg NEB 1300,1700 PRN 01/02/21 [History] Benzonatate 200 mg PO 2100 PRN 01/02/21 [History] Cetirizine [ZyrTEC] 10 mg PO DAILY 01/02/21 [History] Gabapentin [Neurontin] 900 mg PO 1300,1700,2100 01/02/21 [History] Hydrocodone/Acetaminophen [Hydrocodone-Acetamin 10-325 mg] 1 tab PO 0000,0800,1600 01/02/21 [History] Hydrocodone/Acetaminophen [Hydrocodone-Acetamin 10-325 mg] 1 tab PO DAILY PRN 01/02/21 [History] Pantoprazole Sodium [Protonix] 20 mg PO DAILY 01/02/21 [History] Sulfamethoxazole/Trimethoprim [Bactrim Ds Tablet] 1 tab PO MOWEFR@1700 01/02/21 [History] Famotidine [Pepcid] 20 mg PO BEDTIME #30 tablet 01/10/21 [Rx] carvediloL [Coreg] 6.25 mg PO BID #60 tablet 01/10/21 [Rx] levoFLOXacin [Levaquin] 750 mg PO DAILY 3 Days #3 tab 01/10/21 [Rx] - Discharge Summary/Plan Comment DC Time >30 min.: Yes Discharge Summary/Plan Comment: Final diagnosis --Deconditioning, weakness, --Chronic hypoxic respiratory failure with underlying severe pulmonary fibrosis --Bilateral lobe pneumonia, known colonization of pseudomonas, Final culture returned as gram-negative rods pseudomonas aeruginosa HPI summary: 80 year old female with known pulmonary fibrosis admitted to observation status from the [facility] ED department after presenting the AM of 01/02/2021 with increased confusion from baseline with noted weakness since one day prior to presentation. Family notes that she has had an increased cough. She did fall one day prior to presentation. It is unknown if there were inciting circumstances. Patient has fallen previously in the past. There were no known injuries from the fall. Family noted that in the morning she had increased confusion, had been incontinent of urine and was markedly weak where she was not helping with self care as usual. They brought her by private care to the hospital for evaluation. ED course: -VS: T98, P138, R33, BP 105/89, O2 sat 99% -Lab: WBC 7.43, Hgb 11.5 (baseline 12), Hct 37.9, RBC 3.68, neut 86.2, Na 139, K 4.3, Cl 96, CO2 32.2, anion gap 15.1, BUN 15, creatinine 0.43, GFR >60, glucose 197, lactic acid 2.4, Ca 9.5, LFT nl, CK 26, Ck-Mb <0.50, Troponin <0.017, total protein 8.3, albumin 3.09; COVID negative; blood cultures x 2 obtained -Urine: >1000 glucose, 40 ketones, small bili, negative leukocyte esterase, negative nitrites, occ hyaline casts, 0-5 RBC, 5-10 WBC, few epithelial cells and few bacteria. -Meds: metoprolol tartrate 2.5mg IVP for tachycardia, brought down to 120s -NS 125mL/hr -EKG: NSR, rate 141, p waves present, St-T wave depression -CXR: extensive bilateral infiltrates, apparently this is related to fibrosis, question of bilateral hilar adenopathy -CT head: No acute process Hospital course: 01/02/2021: Patient in bed with daughter (January) and son (Aquiles) present. She offers no complaints at this time. Nursing reports temp has gone up to 100.1 and patient is diaphoretic. Added procalcitonin, CRP (>11), magnesium (1.8) to labs. Patient is more short of breath and family reports she has been coughing more in the last 24-48 hours. Nursing reports sats had dipped to 70s and patient's oxygen had to be increased to 5L to maintain sat of 90%. Patient will be started on empiric antibiotic treatment at this time. Patient is immunocompromised and has risk factors for BRIGIDO, will be placed on levofloxacin 750mg daily IV and plan for de-escalation depending on response and cultures. 01/03/21: Cognitive status improved this morning, patient A/O x3. Afebrile, tachycardic this morning with heart rate 130s to 140s after nebulizer treatment; mildy diaphoretic. This improved to 120s without intervention. Denies chest pain. Repeat EKG indicates sinus tach with PACs. HR 128, IA 174ms, QRS 82ms, QTc 481. Trops negative x 2 yesterday. BC x2 NGTD. Patient at baseline respiratory status at 5L NC, denies dyspnea. Continues to have minimally productive cough. Lactic acid down to 1.1 today. Mild weakness persists, nursing will assist patient to increase physical activity today to determine readiness for discharge home. Daughter, January at bedside this morning. States patient typically uses a walker at home. She offers concerns regarding her mother's depression when no family is present while hospitalized. Patient ambulating with walker and gait belt, minimal assist. Will plan to continue antibiotics upon discharge due to neutrophilia and known pulmonary disease. 01/04/21: Patient had an episode last evening of suspected mucous plugging of the airway with significant decrease in oxygen saturation in the 70's at rest and cyanosis. RN utilized oropharyngeal suctioning and removed the mucous plug from the airway with improvement. Patient experiencing significant hypoxia with minimal activity and increased weakness. Cough with increased sputum productivity. Low dose coreg 3.125mg BID started last night with improvement in heart rate to the 90s to low 100s as compared to 120s yesterday. Blood pressure stable. Patient remains afebrile. BC NGTD x2 days. Preliminary sputum gram stain indicates few gm - bacilli and rare PMN, final culture pending. Due to acute on chronic hypoxic respiratory failure and increased weakness, will change patient to inpatient status. Physical therapy eval and tx ordered this morning. Will continue IV levaquin as final respiratory culture in process. Daughter and son talking with social work this morning to determine possible discharge plans. Considering short swing bed stay if needed following inpatient stay if needed for additional therapy versus possible discharge to half-way facility if patient's status does not return to prior baseline at home. Patient typically home during the day by herself much of the day prior to this admission. D/C'd telemetry. Saline locked as patient drinking adequate oral fluids. 01/05/2021; upon rounds daughter Chasity bedside, patient appears calm with no shortness of breath however appears weak feels weak. At 4 L per nasal cannula, POX 97% withou tachypnea or tachycardia. Appears to be tolerating low- dose/selective Coreg. Independently reviewed chest x-ray, significant/extensive for diffuse fibrosis, dual antibiotics of respiratory- floroquinolone along newly added cefepime 01/06/2021; constipation resolved as patient had multiple bowel movements with milk of magnesia. Reduce to as needed. Had a good day yesterday however nurses reported some confusion and sedation this morning--nurses felt hypoglycemia with glucose of 70s, half of amp of D50 given. Prelimb respiratory culture probable pseudomonal aeruginsosa 01/07/2021; Restless night, moaning however denies any pain, was quite alert last night PMs according to nurses. Was able to go outside in wheelchair tersely yesterday however patient vacillates between drowsiness and alertness. Is able to tolerate slightly more appetite and able to take more of her oral pills. Needs improved blood pressure control, Coreg started upon admission. No increase in oxygen requirements, patient is refusing suctioning however appears to have the fair amount of ability for adequate health pulmonary toileting. 01/08/2021; significant improvement in patient's cognition, alert status, agitation status, and ability to take medications and eat. With all this improvement patient is saying her goodbyes to all her children and makes verbal acknowledgment of her dying process/wishes. Added morphine yesterday with very good benefits. Able to take essential medicines, blood pressure improved, fever. Patient did have an episode yesterday of a cough with decreased saturations however was able to self-induced clearance. Blood cultures no growth, 01/09/2021; no overnight calls or concerns, patient slept well, ongoing improvement in patient's cognition, alert status and intake of p.o. fluids. Many of her nonessential medications were discontinued yesterday. Appears mo rphine has great benefit in her breathing, overall pain, without excessive sedation. Has not needed morphine past 24 hours. ESR trending favorably, no more mucus, much less of a cough, likely now at her baseline of her pulmonary fibrosis status. 01/10/2021; today is her day of discharge, her best day so far, fully alert, sitting in bed conversing. Hungry, self-feeding, vital signs good, no fever, still has mild cough, no pain, no increase in shortness of breath. Cefepime was discontinued yesterday as her inflammatory markers continue to trend favorably. Disposition; --Patient will be discharged from inpatient status from [facility] to home health hospice in the care of her family. Medication changes/adjustments (otherwise continue on all other home meds not listed below) -Coreg 6.25 mg p.o. twice daily, newly added this admission -Famotidine 20 mg p.o. bedtime -Levaquin 750 mg p.o. daily x3 doses -Discontinued this admission -fenofibrate -Buspar -cranberry -MVI/Calcium -Cymbalta -Duloxetine -Levimir - General Info Functional Status: Reports: Pain Controlled, Tolerating Diet (More hungry today, self-feeding now), Incentive Spirometry. Denies: Ambulating, New Symptoms - Review of Systems General: Reports: Weakness HEENT: Reports: No Symptoms Pulmonary: Reports: Cough, Sputum Cardiovascular: Denies: Chest Pain, Palpitations, Orthopnea Gastrointestinal: Denies: Abdominal Pain, Diarrhea, Nausea, Vomiting Genitourinary: Reports: Incontinence Musculoskeletal: Reports: No Symptoms Skin: Reports: No Symptoms Neurological: Reports: Weakness. Denies: Confusion Psychiatric: Denies: Depression, Agitation - Patient Data Vitals - Most Recent: Last Vital Signs Temp 96.4 F L 01/10/21 06:40 Pulse 69 01/10/21 08:35 Resp 22 H 01/10/21 06:40 BP 135/74 01/10/21 08:35 Pulse Ox 98 01/10/21 09:00 Weight - Most Recent: 120 lb I&O - Last 24 hours: Intake & Output 01/09/21 01/10/21 01/10/21 22:59 06:59 14:59 Intake Total 700 100 Balance 700 100 Lab Results - Last 24 hrs: Laboratory Results - last 24 hr 01/09/21 01/09/21 01/09/21 Range/Units 11:26 17:37 20:39 POC Glucose 225 H 205 H 216 H (74-106) mg/dl 01/10/21 Range/Units 07:32 POC Glucose 88 (74-106) mg/dl Med Orders - Current: Current Medications Acetaminophen (Acetaminophen 650 Mg Tab.Er) 650 mg PO TID@0400,1200,2000 [facility] Last Admin: 01/10/21 07:08 Dose: Not Given Documented by: Hydrocodone Bitart/Acetaminophen (Acetaminophen/Hydrocodone 325-10 Mg Tab) 1 tab PO 0000,0800,1600 [facility] Last Admin: 01/10/21 08:34 Dose: 1 tab Documented by: Hydrocodone Bitart/Acetaminophen (Acetaminophen/Hydrocodone 325-10 Mg Tab) 1 tab PO DAILY PRN PRN Reason: PAIN Albuterol (Albuterol 0.083% 2.5 Mg/3 Ml Neb Soln) 2.5 mg INH 0730,1930 [facility] Last Admin: 01/10/21 07:08 Dose: Not Given Documented by: Benzonatate (Benzonatate 100 Mg Cap) 200 mg PO 0900,1300,1700 [facility] Last Admin: 01/10/21 08:35 Dose: 200 mg Documented by: Benzonatate (Benzonatate 100 Mg Cap) 200 mg PO 2100 PRN PRN Reason: COUGH Last Admin: 01/08/21 20:54 Dose: 200 mg Documented by: Budesonide (Budesonide 0.5 Mg/2 Ml Neb Susp) 0.5 mg INH 0800,1999 [facility] Last Admin: 01/10/21 08:34 Dose: 0.5 mg Documented by: Carvedilol (Carvedilol 6.25 Mg Tab) 6.25 mg PO BID [facility] Last Admin: 01/10/21 08:35 Dose: 6.25 mg Documented by: Cetirizine HCl (Cetirizine 10 Mg Tab) 10 mg PO DAILY [facility] Last Admin: 01/10/21 08:34 Dose: 10 mg Documented by: Cholecalciferol (Cholecalciferol (Vitamin D3) 25 Mcg Tab) 50 mcg PO 0900 [facility] Last Admin: 01/10/21 08:34 Dose: 50 mcg Documented by: Cyanocobalamin (Cyanocobalamin (Vitamin B12) 500 Mcg Tab) 1,000 mcg PO DAILY@ 1300 [facility] Last Admin: 01/09/21 12:33 Dose: 1,000 mcg Documented by: Dextrose/Water (50% Dextrose In Water 50 Ml Syringe) 50 ml IV ASDIRECTED PRN PRN Reason: Hypoglycemia Last Admin: 01/06/21 11:48 Dose: 25 ml Documented by: Famotidine (Famotidine 20 Mg Tab) 20 mg PO BEDTIME [facility] Last Admin: 01/09/21 21:33 Dose: 20 mg Documented by: Gabapentin (Gabapentin 300 Mg Cap) 900 mg PO 1300,1700,2100 [facility] Last Admin: 01/09/21 21:33 Dose: 900 mg Documented by: Glucagon (Glucagon,Human Recombinant 1 Mg Vial) 1 mg IM ASDIRECTED PRN PRN Reason: Hypoglycemia Hydroxychloroquine Sulfate (Hydroxychloroquine 200 Mg Tab) 200 mg PO 2100 [facility] Last Admin: 01/09/21 21:33 Dose: 200 mg Documented by: Levofloxacin/Dextrose 250 mg/ (Premix) 50 mls @ 100 mls/hr IV Q24H [facility] Last Admin: 01/09/21 13:26 Dose: 100 mls/hr Documented by: Levofloxacin/Dextrose 500 mg/ (Premix) 100 mls @ 100 mls/hr IV Q24H [facility] Last Admin: 01/10/21 09:53 Dose: 100 mls/hr Documented by: Sodium Chloride (Normal Saline) 250 mls @ 25 mls/hr IV ASDIRECTED PRN PRN Reason: FLUSH BAG Last Admin: 01/09/21 06:02 Dose: 100 mls/hr Documented by: Insulin Aspart (Insulin Aspart 100 Units/Ml 3 Ml Pen) 0 unit SUBCUT WITHMEALSANDBED [facility]; Protocol Last Admin: 01/10/21 08:37 Dose: Not Given Documented by: Magnesium Hydroxide (Magnesium Hydroxide 400 Mg/5 Ml Susp 30 Ml Cup) 30 ml PO DAILY PRN PRN Reason: Constipation Magnesium Oxide (Magnesium Oxide 500 Mg Tab) 500 mg PO 1300 [facility] Last Admin: 01/09/21 12:33 Dose: 500 mg Documented by: Morphine Sulfate (Morphine 2 Mg/Ml Syringe) 1 mg IVPUSH Q2H PRN PRN Reason: Pain (moderate 4-6) Azathioprine 50 Mg (Tablet - Ptom) 100 mg PO 0900,1700 [facility] Last Admin: 01/10/21 08:36 Dose: 100 mg Documented by: Levemir (Insulin Detemir) 100 Unit/Ml Insulin Pen - Ptom 18 units SUBCUT 1999 [facility] Last Admin: 01/09/21 20:50 Dose: 18 units Documented by: Omeprazole (Omeprazole 20 Mg Cap.Cr) 20 mg PO ACBREAKFAST [facility] Last Admin: 01/10/21 07:08 Dose: Not Given Documented by: Prednisone (Prednisone 10 Mg Tab) 10 mg PO 1300 [facility] Last Admin: 01/09/21 12:33 Dose: 10 mg Documented by: Sodium Chloride (Sodium Chloride 0.9% 10 Ml Syringe) 10 ml FLUSH Q8HR PRN PRN Reason: keep vein open Last Admin: 01/09/21 06:02 Dose: 10 ml Documented by: Triamcinolone Acetonide (Triamcinolone Acetonide 0.1% Crm 15 Gm Tube) 0 gm TOP BID PRN PRN Reason: Rash Trimethoprim/Sulfamethoxazole (Sulfamethoxazole/Trimethoprim 800-160 Mg Tab) 1 tab PO MoWeFr@1700 [facility] Last Admin: 01/04/21 17:40 Dose: 1 tab Documented by: Discontinued Medications Hydrocodone Bitart/Acetaminophen (Acetaminophen/Hydrocodone 325-10 Mg Tab) 1 tab PO 0000,0800,1600 [facility] Last Admin: 01/04/21 07:41 Dose: Not Given Documented by: Hydrocodone Bitart/Acetaminophen (Acetaminophen/Hydrocodone 325-10 Mg Tab) 1 tab PO DAILY PRN PRN Reason: PAIN Albuterol (Albuterol 0.083% 2.5 Mg/3 Ml Neb Soln) 2.5 mg INH 0730,1930 [facility] Last Admin: 01/04/21 06:33 Dose: 2.5 mg Documented by: Albuterol (Albuterol 0.083% 2.5 Mg/3 Ml Neb Soln) 2.5 mg NEB ONETIME ONE Stop: 01/07/21 11:49 Last Admin: 01/07/21 11:55 Dose: 2.5 mg Documented by: Atropine Sulfate (Atropine 0.1 Mg/Ml 10 Ml Syringe) 0 mg IVPUSH ASDIRECTED PRN PRN Reason: Heart. Budesonide (Budesonide 0.5 Mg/2 Ml Neb Susp - Ptom) 0.5 mg INH 0800,2000 [facility] Last Admin: 01/04/21 07:29 Dose: 0.5 mg Documented by: Buspirone HCl (Buspirone 10 Mg Tab) 5 mg PO 0900,1700 [facility] Last Admin: 01/08/21 17:31 Dose: Not Given Documented by: Carvedilol (Carvedilol 6.25 Mg Tab) 3.125 mg PO BID [facility] Last Admin: 01/07/21 09:00 Dose: Not Given Documented by: Duloxetine HCl (Duloxetine 30 Mg Cap) 60 mg PO 2100 [facility] Last Admin: 01/07/21 21:20 Dose: Not Given Documented by: Epinephrine HCl (Epinephrine 1:10,000 1 Mg/10 Ml Syringe) 1 mg IVPUSH ASDIRECTED PRN PRN Reason: Heart. Gabapentin (Gabapentin 300 Mg Cap - Ptom) 900 mg PO 1300,1700,2100 [facility] Last Admin: 01/04/21 19:09 Dose: Not Given Documented by: Guaifenesin/Codeine Phosphate (Codeine/Guaifenesin 10-100 Mg/5 Ml Syrup 5 Ml Cup) 5 ml PO DAILY PRN PRN Reason: Cough Sodium Chloride (Normal Saline) 1,000 mls @ 50 mls/hr IV ASDIRECTED [facility] Last Admin: 01/04/21 09:39 Dose: 50 mls/hr Documented by: Cefepime HCl 2 gm/ Sodium (Chloride) 50 mls @ 100 mls/hr IV Q12H [facility] Cefepime HCl 2 gm/ Sodium (Chloride) 50 mls @ 100 mls/hr IV Q8H [facility] Last Admin: 01/09/21 06:02 Dose: 100 mls/hr Documented by: Dextrose/Water (Dextrose 5% In Water) 1,000 mls @ 70 mls/hr IV ASDIRECTED [facility] Last Admin: 01/07/21 06:11 Dose: 70 mls/hr Documented by: Dextrose/Water (Dextrose 5% In Water) Confirm Administered Dose 1,000 mls @ as directed .ROUTE .STK-MED ONE Stop: 01/06/21 11:53 Last Admin: 01/06/21 11:56 Dose: Not Given Documented by: Lidocaine HCl (Lidocaine 2% 100 Mg/5 Ml Syringe) 0 mg IVPUSH ASDIRECTED PRN PRN Reason: Heart. Magnesium Hydroxide (Magnesium Hydroxide 400 Mg/5 Ml Susp 30 Ml Cup) 30 ml PO BID [facility] Last Admin: 01/06/21 11:28 Dose: Not Given Documented by: Metoprolol Tartrate (Metoprolol Tartrate 5 Mg/5 Ml Sdv) 2.5 mg IVPUSH ONETIME ONE Stop: 01/02/21 09:24 Last Admin: 01/02/21 09:27 Dose: 2.5 mg Documented by: Metoprolol Tartrate (Metoprolol Tartrate 5 Mg/5 Ml Sdv) 5 mg IVPUSH ONETIME ONE Stop: 01/06/21 11:27 Last Admin: 01/06/21 11:58 Dose: 5 mg Documented by: Metoprolol Tartrate (Metoprolol Tartrate 5 Mg/5 Ml Sdv) 5 mg IVPUSH ONETIME ONE Stop: 01/06/21 21:24 Last Admin: 01/06/21 21:32 Dose: 5 mg Documented by: Metoprolol Tartrate (Metoprolol Tartrate 5 Mg/5 Ml Sdv) 5 mg IVPUSH ONETIME ONE Stop: 01/06/21 21:26 Last Admin: 01/06/21 21:44 Dose: 5 mg Documented by: Metoprolol Tartrate (Metoprolol Tartrate 5 Mg/5 Ml Sdv) 2.5 mg IVPUSH ASDIRECTED PRN PRN Reason: Hypertension Stop: 01/07/21 07:30 Last Admin: 01/07/21 03:48 Dose: 2.5 mg Documented by: Morphine Sulfate (Morphine 2 Mg/Ml Syringe) 0.5 mg IVPUSH Q2H PRN PRN Reason: Pain Last Admin: 01/07/21 15:52 Dose: 0.5 mg Documented by: Morphine Sulfate (Morphine 2 Mg/Ml Syringe) 1 mg IVPUSH Q2H [facility] Last Admin: 01/07/21 19:17 Dose: Not Given Documented by: Nitroglycerin (Nitroglycerin 0.4 Mg Tab.Sl) 0.4 mg SL ASDIRECTED PRN PRN Reason: Heart. Benzonatate 100 Mg (Capsule - Ptom) 200 mg PO 0900,1200,1700 [facility] Buspirone 5 Mg (Tablet - Ptom) 5 mg PO 0900,1700 [facility] Last Admin: 01/04/21 09:37 Dose: 5 mg Documented by: Cranberry 900mg (Capsule - Ptom) 900 mg PO 2100 [facility] Last Admin: 01/07/21 21:15 Dose: Not Given Documented by: Duloxetine 60mg (Capsule - Ptom) 1 each PO 2100 [facility] Last Admin: 01/03/21 21:18 Dose: 1 each Documented by: Fenofibrate 145 Mg (Tablet - Ptom) 145 mg PO 2100 [facility] Last Admin: 01/07/21 21:15 Dose: Not Given Documented by: Hydroxychloroquine [ Plaquenil] 200 Mg Tablet - Ptom 200 mg PO 2100 [facility] Last Admin: 01/03/21 21:17 Dose: 200 mg Documented by: Pantoprazole Dr 20mg (Tablet - Ptom) 20 mg PO DAILY [facility] Last Admin: 01/04/21 09:37 Dose: 20 mg Documented by: Benzonatate 200 Mg (Capsule - Ptom) 200 mg PO 0900,1300,1700 [facility] Last Admin: 01/04/21 19:09 Dose: Not Given Documented by: Benzonatate 200mg (Cap - Ptom) 1 each PO 2100 PRN PRN Reason: COUGH Last Admin: 01/03/21 17:18 Dose: 1 each Documented by: Potassium Chloride (Potassium Chloride 20 Meq Tab.Er) 20 meq PO ONETIME ONE Stop: 01/04/21 13:21 Last Admin: 01/04/21 13:47 Dose: 20 meq Documented by: Prednisone (Prednisone 5 Mg Tab - Ptom) 10 mg PO 1300 [facility] Last Admin: 01/04/21 19:09 Dose: Not Given Documented by: Ramelteon (Ramelteon 8 Mg Tab) 8 mg PO BEDTIME [facility] Last Admin: 01/05/21 20:51 Dose: 8 mg Documented by: Trimethoprim/Sulfamethoxazole (Sulfamethoxazole/Trimethoprim 800-160 Mg Tab - Ptom) 1 tab PO MoWeFr [facility] Last Admin: 01/02/21 17:00 Dose: 1 tab Documented by: - Exam Quality Assessment: Reports: Supplemental Oxygen General: Reports: Alert, Oriented, Cooperative, No Acute Distress Lungs: Reports: Clear to Auscultation, Normal Respiratory Effort Cardiovascular: Reports: Regular Rate, Regular Rhythm GI/Abdominal Exam: Normal Bowel Sounds, Soft, No Distention (Female) Exam: Deferred Back Exam: Denies: CVA Tenderness (L), CVA Tenderness (R) Extremities: No: Pedal Edema
[2021-01-10 10:39] VITALS: BP 129/71
[2021-01-10] MEDS: Levofloxacin/Dextrose 5%-Water 250 MG in Premix Bag 1 BAG IV SCH (11:23)
== END 2021-01-10 11:40 | disposition hospice, home (50) | DRG 871 ==
LOC: KA.ED 08:08 → KA.MS 10:28 → OBSVTOIN 01-04 12:38
PROVIDERS: ADMIT Nurse Practitioner Family; ATTEND Family Medicine
DX: A41.9 Sepsis, unspecified organism (principal); R53.1 Weakness; R41.0 Disorientation, unspecified; J18.9 Pneumonia, unspecified organism; J96.21 Acute and chronic respiratory failure with hypoxia; W19.XXXA Unspecified fall, initial encounter; R00.0 Tachycardia, unspecified; D51.9 Vitamin B12 deficiency anemia, unspecified; D84.9 Immunodeficiency, unspecified; R82.4 Acetonuria; J84.10 Pulmonary fibrosis, unspecified; B96.5 Pseudomonas (aeruginosa) (mallei) (pseudomallei) as the cause of diseases classified elsewhere; K59.00 Constipation, unspecified; Z66 Do not resuscitate; H54.7 Unspecified visual loss; J45.909 Unspecified asthma, uncomplicated; H91.90 Unspecified hearing loss, unspecified ear; Z20.822 Contact with and (suspected) exposure to COVID-19; E78.00 Pure hypercholesterolemia, unspecified; I10 Essential (primary) hypertension; R51.9 Headache, unspecified; K21.9 Gastro-esophageal reflux disease without esophagitis; K44.9 Diaphragmatic hernia without obstruction or gangrene; G89.29 Other chronic pain; I77.6 Arteritis, unspecified; M54.9 Dorsalgia, unspecified; M19.90 Unspecified osteoarthritis, unspecified site; Z79.51 Long term (current) use of inhaled steroids; M81.0 Age-related osteoporosis without current pathological fracture; M06.9 Rheumatoid arthritis, unspecified; F32.9 Major depressive disorder, single episode, unspecified; E11.9 Type 2 diabetes mellitus without complications; Z99.81 Dependence on supplemental oxygen; E55.9 Vitamin D deficiency, unspecified; R29.6 Repeated falls; E53.8 Deficiency of other specified B group vitamins; D64.9 Anemia, unspecified; E86.0 Dehydration; I27.20 Pulmonary hypertension, unspecified; J30.9 Allergic rhinitis, unspecified; L30.9 Dermatitis, unspecified; E87.6 Hypokalemia; Z90.49 Acquired absence of other specified parts of digestive tract; Z88.6 Allergy status to analgesic agent; Z88.8 Allergy status to other drugs, medicaments and biological substances; Z79.4 Long term (current) use of insulin; Z79.52 Long term (current) use of systemic steroids; Z79.899 Other long term (current) drug therapy
CPT/HCPCS: 36415; 70450; 71045; 80048; 80053; 81001; 82550; 82553; 82962; 83605; 83735; 84145; 84484; 85025; 85652; 86140; 87040; 87070; 87186; 87205; 93005; 94640; 96365; 96374; 96375; 96376; 97110-GP; 97162-GP; 99284; 99285-25; A9270-GY; G0378; J0692; J1815-GY; J1956; J2270; J3490; J7030; J7050; J7060; J7512; J7613-GY; U0002